=== PATIENT | female | born 1995 | race Caucasian/White ===

== ENCOUNTER 2020-10-06 17:25 | Outpatient (REF) | payer OTHER, SELFPAY | END 2020-10-06 17:26 | disposition home or self-care (01) | LOC: HO.LAB 17:25 | PROVIDERS: Visit Provider Internal Medicine | DX: Z20.828 Contact with and (suspected) exposure to other viral communicable diseases (principal) | CPT/HCPCS: C9803; U0003 ==

== ENCOUNTER 2020-11-04 16:26 | Outpatient (REF) | payer OTHER, SELFPAY | END 2020-11-04 16:27 | disposition home or self-care (01) | LOC: HO.LAB 16:26 | PROVIDERS: Visit Provider Internal Medicine | DX: Z20.828 Contact with and (suspected) exposure to other viral communicable diseases (principal) | CPT/HCPCS: 36415; C9803; U0003 ==

== ENCOUNTER 2021-01-26 11:24 | Outpatient (REF) | payer OTHER, SELFPAY ==
--- NOTE | ~2021-01-26 | XR_ITS ---
EXAMINATION: XR LUMBOSACRAL SPINE CLINICAL INFORMATION: Low back pain. COMPARISON: None TECHNIQUE: Three views of the lumbosacral spine. FINDINGS: There is mild straightening of lumbar lordosis. The vertebral heights, alignment and disc heights are normal. No visible acute fracture, dislocation or subluxation seen. No lytic or sclerotic process seen. The paravertebral soft tissues are normal. XR/XR lumbar spine 2-3V IMPRESSION: Unremarkable lumbar spine exam.
== END 2021-01-26 11:25 | disposition home or self-care (01) ==
LOC: HO.XRAY 11:24
PROVIDERS: PCP Physician Assistant; Visit Provider Internal Medicine
DX: M54.9 Dorsalgia, unspecified (principal)
CPT/HCPCS: 72100; 81025

== ENCOUNTER 2021-01-26 15:38 | Outpatient (REF) | payer OTHER, SELFPAY ==
[2021-01-26 17:17] LABS: Glucose Random 86 mg/dL (60-115)
[2021-01-26 17:44] LABS: Thyroid Stimulating Hormone 1.16 uIU/mL (0.32-4.0)
[2021-01-26 18:34] LABS: Glucose Urine UA NEG (NEG); Leukocyte Esterase Urine NEG (NEG); Nitrite Urine NEG (NEG); Specific Gravity - Urine >= 1.030 (1.005-1.025); Urine Blood TRACE (NEG); Urine Ketones NEG (NEG); Urine Protein NEG (NEG-TRACE)
[2021-01-26 18:37] LABS: Appearance Urine CLEAR; Color Urine YELLOW
[2021-01-26 18:41] LABS: Bacteria Urine 1+ /LPF; RBC Urine 0-2 /HPF (0); Squamous Epithelial Cell Urine 2+ /LPF; WBC Urine 0 /HPF (0-4)
[2021-01-27 08:55] LABS: CT PCR NOT DETECTED (Not Detect.); NG PCR NOT DETECTED (Not Detect.)
[2021-01-28 08:56] LABS: ~HepC Num1 0.08 S/CO (0.00-0.79); ~Hepatitis C Antibody Nonreactive (Nonreactive)
[2021-01-28 09:21] LABS: HBsAGNum1 0.21 S/CO (0.00-0.99); HIV AB/AG Nonreactive (Nonreactive); HIV Num 1 0.05 S/CO (0.00-0.99); Hepatitis B Surface Antigen Negative (Negative)
== END 2021-01-26 15:39 | disposition home or self-care (01) ==
LOC: HO.LAB 15:38
PROVIDERS: Internal Medicine; Visit Provider Advanced Practice Midwife
DX: Z12.4 Encounter for screening for malignant neoplasm of cervix (principal); E66.01 Morbid (severe) obesity due to excess calories; N91.2 Amenorrhea, unspecified; Z20.2 Contact with and (suspected) exposure to infections with a predominantly sexual mode of transmission
CPT/HCPCS: 36415; 81001; 82947; 84443; 86803; 87340; 87389; 87491; 87591; 88142

== ENCOUNTER 2021-01-27 14:08 | Outpatient (REF) | payer OTHER, SELFPAY | END 2021-01-27 14:09 | disposition home or self-care (01) | LOC: HO.LAB 14:08 | PROVIDERS: Visit Provider Advanced Practice Midwife | DX: Z13.89 Encounter for screening for other disorder (principal) ==

== ENCOUNTER → 2021-01-30 08:53 | Outpatient (BNVA) | payer OTHER, SELFPAY | PROVIDERS: Visit Provider Advanced Practice Midwife ==

== ENCOUNTER 2021-04-14 13:14 | Outpatient (REF) | payer OTHER, SELFPAY ==
[2021-04-14 14:48] LABS: Influenza A PCR NEGATIVE (Negative); Influenza B PCR NEGATIVE (Negative); Resp Syncy Virus RNA Qual PCR NEGATIVE (Negative); SARS COV2 PCR INHOUSE NEGATIVE (Negative)
== END 2021-04-14 13:15 | disposition home or self-care (01) ==
LOC: HO.LAB 13:14
PROVIDERS: Visit Provider Nurse Practitioner Family
DX: Z20.822 Contact with and (suspected) exposure to COVID-19 (principal); J01.90 Acute sinusitis, unspecified
CPT/HCPCS: 0241U; 36415

== ENCOUNTER 2021-06-19 10:19 | Outpatient (REF) | payer OTHER, SELFPAY ==
[2021-06-21 15:12] LABS: TS Negative Control Passed; TS Panel A 0; TS Panel B 0; TS Positive Control Passed; TSpotTB Negative (Negative)
== END 2021-06-19 10:20 | disposition home or self-care (01) ==
LOC: HO.HMGCLDS 10:19
PROVIDERS: PCP Physician Assistant; Visit Provider Physician Assistant
DX: Z11.1 Encounter for screening for respiratory tuberculosis (principal)
CPT/HCPCS: 36415; 86481

== ENCOUNTER → 2021-07-10 07:15 | Outpatient (BNVA) | payer OTHER, SELFPAY | PROVIDERS: PCP Physician Assistant; Visit Provider Surgery ==

== ENCOUNTER → 2021-07-27 08:14 | Outpatient (BNVA) | payer OTHER, SELFPAY | PROVIDERS: PCP Physician Assistant; Visit Provider Dietitian, Registered ==

== ENCOUNTER 2021-07-28 08:50 | Outpatient (REF) | payer OTHER, SELFPAY ==
--- NOTE | ~2021-07-28 | XR_ITS ---
EXAMINATION: XR CHEST CLINICAL INFORMATION: Obesity COMPARISON: None TECHNIQUE: 2 views of the chest were obtained. FINDINGS: No significant abnormality is noted involving the heart, lungs, mediastinum, bony thorax or soft tissues. XR/XR chest 2V IMPRESSION: Unremarkable examination.
--- NOTE | 2021-07-28 09:27 | ECG_ITS ---
Test Reason : morbid obesity Blood Pressure : / mmHG Vent. Rate : 062 BPM Atrial Rate : 062 BPM P-R Int : 164 ms QRS Dur : 082 ms QT Int : 414 ms P-R-T Axes : 046 055 050 degrees QTc Int : 420 ms Normal sinus rhythm with sinus arrhythmia Low voltage QRS Borderline ECG No previous ECGs available Referred By: Casey Bynum Electronically Signed By:ARCHIE SIMEON
[2021-07-28 10:00] LABS: MANUAL DIFF FLAG NO
[2021-07-28 10:11] LABS: Basophils Percent Auto 0.5 % (0-2); Eosinophils Absolute Auto 0.2 X10*3/uL (0.0-0.4); Eosinophils Percent Auto 3.9 % (0-4); Hemoglobin 13.4 g/dl (12.0-16.0); Imm Gran Abs Auto 0.02 X10*3/uL (0.00-0.03); Imm Gran Pct Auto 0.3 % (0.0-0.4); Lymphocytes Absolute Auto 2.2 X10*3/uL (1.2-4.9); Lymphocytes Percent Auto 35.8 % (20-40); Mean Corpuscular HGB Conc 35.3 g/dl (31.0-35.0); Mean Corpuscular Volume 90.7 fL (80-98); Mean Platelet Volume 9.9 fL (9.4-12.3); Monocytes Absolute Auto 0.4 X10*3/uL (0.1-1.2); Monocytes Percent Auto 6.7 % (2-11); Neutrophils Absolute Auto 3.2 X10*3/uL (2.0-8.3); Neutrophils Percent Auto 52.8 % (45-73); Platelet Count 330 X10*3/uL (160-400); Red Blood Count 4.19 X10*6/uL (4.20-5.50); Red Cell Distribution Width 11.6 % (11.0-16.0); White Blood Count 6.1 X10*3/uL (4.8-10.8)
[2021-07-28 10:36] LABS: Estimated Average Glucose 105 mg/dL; Hemoglobin A1c % 5.3 %
[2021-07-28 10:38] LABS: Alanine Aminotransferase 46 U/L (0-31); Albumin Level 4.5 g/dL (3.5-5.0); Alkaline Phosphatase 39 U/L (39-117); Anion Gap 14 (12-20); Aspartate Amino Transferase 27 U/L (5-31); Bilirubin Total 0.7 mg/dL (0.0-1.0); Blood Urea Nitrogen 10 mg/dL (9-16); C Reactive Protein 0.26 mg/dL (< or = 0.50); Calcium 9.5 mg/dL (8.4-10.2); Carbon Dioxide 27 mmol/L (22-29); Chloride 103 mmol/L (96-108); Cholesterol 151 mg/dL; Estimated Glomerular Filt Rate > 60; Glucose Random 98 mg/dL (60-115); HDL Cholesterol 31 mg/dL; Iron 90 mcg/dL (30-160); LDL Cholesterol Calculated 82 mg/dl; Percent Iron Saturation 28 % (15-50); Potassium 4.1 mmol/L (3.3-5.1); Sodium 140 mmol/L (135-145); Total Iron Binding Capacity 325 mcg/dL (228-428); Total Protein 7.2 g/dL (6.5-8.0); Triglycerides 191 mg/dL; Unsaturated Iron Binding 235 ug/dL
[2021-07-28 11:01] LABS: Appearance Urine HAZY; Color Urine YELLOW; Glucose Urine UA NEG (NEG); Leukocyte Esterase Urine TRACE (NEG); Nitrite Urine NEG (NEG); Specific Gravity - Urine >= 1.030 (1.005-1.025); Urine Blood NEG (NEG); Urine Ketones NEG (NEG); Urine Protein NEG (NEG-TRACE)
[2021-07-28 11:06] LABS: TSH reflex Free T4 1.13 uIU/mL (0.32-4.0); Vitamin D 25-OH Total 29.2 ng/mL (>30)
[2021-07-28 11:08] LABS: Folate 14.5 ng/mL (> or = 4.0); Vitamin B12 641 pg/mL (200-900)
[2021-07-28 11:14] LABS: Ferritin 123 ng/mL (10-122)
[2021-07-28 11:24] LABS: Bacteria Urine 1+ /LPF; RBC Urine 0 /HPF (0); Squamous Epithelial Cell Urine 2+ /LPF; WBC Urine 0-2 /HPF (0-4)
[2021-07-28 11:25] LABS: Mucus Urine 2+ /LPF
[2021-07-29 13:19] LABS: H Pylori Breath Test Positive (Negative)
[2021-07-29 21:22] LABS: Rubella IgG Antibody 3.68 Index
[2021-07-30 09:08] LABS: Calcium (PTHI) 9.5 mg/dL (8.6-10.2); Insulin Level Total 18.1 uIU/mL; PTHI 50 pg/mL (14-64)
[2021-08-01 13:40] LABS: Zinc 83 mcg/dL (60-130)
[2021-08-02 11:23] LABS: Vitamin B1 11 nmol/L (8-30)
[2021-08-02 13:35] LABS: Vitamin A 47 mcg/dL (38-98)
== END 2021-07-28 08:51 | disposition home or self-care (01) ==
LOC: HO.XRAY 08:50
PROVIDERS: Internal Medicine; Absent Provider Surgery; PCP Physician Assistant; Visit Provider Dietitian, Registered
DX: E66.01 Morbid (severe) obesity due to excess calories (principal); Z68.41 Body mass index [BMI] 40.0-44.9, adult; E28.2 Polycystic ovarian syndrome; Z71.3 Dietary counseling and surveillance; Z01.84 Encounter for antibody response examination
CPT/HCPCS: 36415; 71046; 80053; 80061; 81001; 81003; 82306; 82607; 82728; 82746; 83013; 83036; 83525; 83540; 83970; 84425; 84443; 84590; 84630; 85025; 86140; 86735; 86762; 86765; 86787; 93005; 97802; 99211

== ENCOUNTER → 2021-08-03 08:00 | Outpatient (BNVA) | payer OTHER, SELFPAY | PROVIDERS: PCP Physician Assistant; Visit Provider Surgery ==

== ENCOUNTER 2021-08-06 10:19 | Outpatient (REF) | payer OTHER, SELFPAY ==
--- NOTE | ~2021-08-06 | US_ITS ---
EXAMINATION: US COMPLETE ABDOMEN WITH LIVER ELASTOGRAPHY CLINICAL INFORMATION: Obesity COMPARISON: None. TECHNIQUE: Real-time imaging of the abdominal viscera. Noninvasive ultrasound liver fibrosis assessment is performed using Casper ElastPQ point quantification shear wave elastography (pSWE) with a C5-2 MHz transducer. Multiple elastography samples are obtained. FINDINGS: PANCREAS: Not well visualized due to bowel gas ABDOMINAL AORTA: The proximal, middle, and distal aortic segments are normal in caliber. INFERIOR VENA CAVA: Visualized portions are normal. LIVER: Liver echotexture is increased. Liver contour is normal. The liver is slightly enlarged. No focal lesion or intrahepatic biliary duct dilatation. The right lobe measures 18 cm in length. The left lobe measures 12 cm in length. Portal flow is normal/hepatopedal Shear wave liver elastography median stiffness is 1.5 m/s (reference: normal median stiffness is 1.3 m/s or less). IQR/median stiffness to assess sampling precision is 0.11 (reference: good quality data set is IQR/median stiffness of 0.15 or less). GALLBLADDER: Normal. The gallbladder is physiologically distended without evidence of stones, sludge, polyps, wall thickening or pericholecystic fluid. COMMON BILE DUCT: Normal in caliber measuring 0.3 cm in diameter. RIGHT KIDNEY: Normal. No hydronephrosis. No renal calculi or focal parenchymal lesions. The kidney measures 12 cm in maximum dimension. LEFT KIDNEY: Normal. No hydronephrosis. No renal calculi or focal parenchymal lesions. The kidney measures 11 cm in maximum dimension. SPLEEN: Normal. The spleen measures 9 cm in maximum dimension. FREE FLUID: None. US/US abdomen comp w elastography IMPRESSION: 1. Impression: Slightly enlarged echogenic liver probably representing fatty infiltration. Limited visualization of the pancreas. 2. Liver elastography: Adequate liver sampling. In the absence of other known clinical signs, rules out compensated advanced chronic liver disease. REFERENCE: Society of Radiologists in Ultrasound Liver Stiffness Thresholds (2020): LIVER STIFFNESS THRESHOLDS: *Liver Stiffness equal or less than 1.3 m/s: High probability of being normal. *Liver Stiffness less than 1.7 m/s: In the absence of other known clinical signs, rules out compensated advanced chronic liver disease. *Liver Stiffness 1.7-2.1 m/s: Suggestive of compensated advanced chronic liver disease but need further test for confirmation. *Liver Stiffness over 2.1 m/s: Rules in compensated advanced chronic liver disease. *Liver Stiffness over 2.4 m/s: Suggestive of clinically significant portal hypertension. QUALITY OF DATA SET: *IQR/Median value equal or less than 0.15 implies a quality data set. *IQR/Median value over 0.15 implies a poor quality data set. SIGNIFICANT CHANGE FROM PRIOR EXAM: Significant change if liver stiffness measurement is 10% or greater from prior exam. OTHER CONSIDERATIONS: The stage of liver fibrosis may be overestimated in the setting of acute hepatitis, liver inflammation, elevated liver function tests, hepatic vascular congestion, obstructive cholestasis, non-fasting state, and infiltrative diseases such as amyloidosis and lymphoma. In some patients with NAFLD, the liver stiffness thresholds for compensated advanced chronic liver disease may be lower. In causes other than viral hepatitis and NAFLD, liver stiffness thresholds are not well established.
--- NOTE | ~2021-08-06 | FL_ITS ---
EXAMINATION: XR GI SERIES CLINICAL INFORMATION: Obesity COMPARISON: None TECHNIQUE: Upper GI was performed using thin and thick barium and effervescent granules. FINDINGS: Esophageal motility is normal. No esophageal hernia is seen. There is mild gastroesophageal reflux. Stomach and duodenum are normal-appearing. No fold thickening, mass, ulcer or stricture is seen. FLUOROSCOPY TIME: 0.9 minutes DOSE AREA PRODUCT: 10.6 aceves per centimeter squared. 18 saved fluoroscopic images. FL/FL upper GI series IMPRESSION: Mild gastroesophageal reflux otherwise unremarkable exam.
== END 2021-08-06 10:20 | disposition home or self-care (01) ==
LOC: HO.US 10:19
PROVIDERS: PCP Physician Assistant; Visit Provider Surgery
DX: Z01.818 Encounter for other preprocedural examination (principal); E66.01 Morbid (severe) obesity due to excess calories; E28.2 Polycystic ovarian syndrome; K21.9 Gastro-esophageal reflux disease without esophagitis
CPT/HCPCS: 74240; 76705; 76981

== ENCOUNTER → 2021-08-24 08:13 | Outpatient (BNVA) | payer OTHER, SELFPAY | PROVIDERS: PCP Physician Assistant; Referring Provider Surgery; Visit Provider Dietitian, Registered | DX: E66.01 Morbid (severe) obesity due to excess calories (principal); Z68.41 Body mass index [BMI] 40.0-44.9, adult; J30.81 Allergic rhinitis due to animal (cat) (dog) hair and dander; J30.2 Other seasonal allergic rhinitis; Z71.3 Dietary counseling and surveillance | CPT/HCPCS: 97803 ==

== ENCOUNTER → 2021-08-28 08:17 | Outpatient (BNVA) | payer OTHER, SELFPAY | PROVIDERS: PCP Physician Assistant; Visit Provider Surgery ==

== ENCOUNTER 2021-09-23 07:58 | Outpatient (REF) | payer OTHER, SELFPAY ==
[2021-09-25 08:50] LABS: H Pylori Breath Test Positive (Negative)
== END 2021-09-23 07:59 | disposition home or self-care (01) ==
LOC: HO.LNP 07:58
PROVIDERS: Physician Assistant Surgical; PCP Physician Assistant; Visit Provider Surgery
DX: Z01.818 Encounter for other preprocedural examination (principal); E66.01 Morbid (severe) obesity due to excess calories; Z68.41 Body mass index [BMI] 40.0-44.9, adult; Z71.3 Dietary counseling and surveillance
CPT/HCPCS: 83013; 97803

== ENCOUNTER → 2021-11-06 07:33 | Outpatient (BNVA) | payer OTHER, SELFPAY | PROVIDERS: PCP Physician Assistant; Visit Provider Surgery ==

== ENCOUNTER 2021-11-10 15:00 | Outpatient (REF) | payer OTHER, SELFPAY ==
[2021-11-11 09:10] LABS: BV Int Neg Control Negative (Negative); BV Int Pos Control Positive (Positive)
[2021-11-11 10:32] LABS: CT PCR NOT DETECTED (Not Detect.); NG PCR NOT DETECTED (Not Detect.)
== END 2021-11-10 15:01 | disposition home or self-care (01) ==
LOC: HO.LAB 15:00
PROVIDERS: PCP Physician Assistant; Visit Provider Obstetrics & Gynecology
DX: B37.3 Candidiasis of vulva and vagina (principal)
CPT/HCPCS: 87480; 87491; 87510; 87591; 87660; 99212

== ENCOUNTER → 2022-12-29 08:14 | Outpatient (BNVA) | payer OTHER, SELFPAY | PROVIDERS: PCP Physician Assistant; Referring Provider Physician Assistant; Visit Provider Physician Assistant Surgical | DX: Z13.89 Encounter for screening for other disorder (principal) ==

== ENCOUNTER 2022-12-30 08:23 | Outpatient (REF) | payer OTHER, SELFPAY ==
--- NOTE | ~2022-12-30 | XR_ITS ---
EXAMINATION: XR CHEST CLINICAL INFORMATION: Morbid obesity COMPARISON: July 20, 2021 TECHNIQUE: 2 views of the chest were obtained. FINDINGS: No significant abnormality is noted involving the heart, lungs, mediastinum, bony thorax or soft tissues. XR/XR chest 2V IMPRESSION: No acute disease.
--- NOTE | 2022-12-30 10:08 | ECG_ITS ---
Test Reason : obesity Blood Pressure : / mmHG Vent. Rate : 059 BPM Atrial Rate : 059 BPM P-R Int : 152 ms QRS Dur : 082 ms QT Int : 402 ms P-R-T Axes : 040 056 055 degrees QTc Int : 397 ms Sinus bradycardia with sinus arrhythmia Otherwise normal ECG When compared with ECG of 28-JUL-2021 09:44, No significant change was found Referred By: Jeremy Schwartz Electronically Signed By:NEEL HOGAN MD
[2022-12-30 10:17] LABS: MANUAL DIFF FLAG NO
[2022-12-30 10:48] LABS: Basophils Percent Auto 0.7 % (0-2); Eosinophils Absolute Auto 0.2 X10*3/uL (0.0-0.4); Eosinophils Percent Auto 2.8 % (0-4); Hematocrit 41.9 % (37.0-47.0); Hemoglobin 14.3 g/dl (12.0-16.0); Imm Gran Abs Auto 0.01 X10*3/uL (0.00-0.03); Imm Gran Pct Auto 0.2 % (0.0-0.4); Lymphocytes Absolute Auto 1.9 X10*3/uL (1.2-4.9); Lymphocytes Percent Auto 32.8 % (20-40); Mean Corpuscular HGB Conc 34.1 g/dl (31.0-35.0); Mean Corpuscular Hemoglobin 30.2 pg (27.0-33.0); Mean Corpuscular Volume 88.4 fL (80.0-98.0); Monocytes Absolute Auto 0.5 X10*3/uL (0.1-1.2); Monocytes Percent Auto 8.5 % (2-11); Neutrophils Absolute Auto 3.1 x10*3/uL (2.0-8.3); Platelet Count 369 X10*3/uL (160-400); Red Blood Count 4.74 X10*6/uL (4.20-5.50); Red Cell Distribution Width 11.6 % (11.0-16.0); White Blood Count 5.7 X10*3/uL (4.8-10.8)
[2022-12-30 11:24] LABS: Alanine Aminotransferase 58 U/L (0-31); Albumin Level 4.7 g/dL (3.5-5.0); Alkaline Phosphatase 40 U/L (39-117); Anion Gap 13 (12-20); Aspartate Amino Transferase 33 U/L (5-31); Bilirubin Total 0.7 mg/dL (0.0-1.0); Blood Urea Nitrogen 11 mg/dL (9-16); C Reactive Protein 0.28 mg/dL (< or = 0.50); Calcium 9.6 mg/dL (8.4-10.2); Carbon Dioxide 28 mmol/L (22-29); Chloride 102 mmol/L (96-108); Cholesterol 182 mg/dL; Estimated Glomerular Filt Rate > 60; Glucose Random 96 mg/dL (60-115); HDL Cholesterol 36 mg/dL; Iron 75 mcg/dL (30-160); LDL Cholesterol Calculated 111 mg/dl; Percent Iron Saturation 23 % (15-50); Potassium 4.5 mmol/L (3.3-5.1); Sodium 138 mmol/L (135-145); Total Iron Binding Capacity 328 mcg/dL (228-428); Total Protein 7.5 g/dL (6.5-8.0); Triglycerides 178 mg/dL; Unsaturated Iron Binding 253 ug/dL
[2022-12-30 11:39] LABS: Estimated Average Glucose 108 mg/dL; Hemoglobin A1c % 5.4 %
[2022-12-30 11:48] LABS: Ferritin 83 ng/mL (10-122); Folate 17.6 ng/mL (> or = 4.0); TSH reflex Free T4 0.92 uIU/mL (0.32-4.0); Vitamin B12 961 pg/mL (200-900); Vitamin D 25-OH Total 31.5 ng/mL (>30)
[2022-12-30 11:55] LABS: Insulin 24 uU/mL (2-29)
[2023-01-03 02:44] LABS: Zinc 86 mcg/dL (60-130)
[2023-01-03 15:54] LABS: Calcium (PTHI) 9.9 mg/dL (8.6-10.2); PTHI 45 pg/mL (16-77)
[2023-01-04 05:14] LABS: Vitamin A 71 mcg/dL (38-98)
[2023-01-05 16:54] LABS: Vitamin B1 15 nmol/L (8-30)
== END 2022-12-30 08:24 | disposition home or self-care (01) ==
LOC: HO.XRAY 08:23
PROVIDERS: PCP Physician Assistant; Visit Provider Physician Assistant Surgical
DX: E66.01 Morbid (severe) obesity due to excess calories (principal); A04.8 Other specified bacterial intestinal infections; N91.2 Amenorrhea, unspecified; Z68.41 Body mass index [BMI] 40.0-44.9, adult; Z71.3 Dietary counseling and surveillance
CPT/HCPCS: 36415; 71046; 80053; 80061; 82306; 82607; 82728; 82746; 83036; 83525; 83540; 83970; 84425; 84443; 84590; 84630; 85025; 86140; 93005; 99212

== ENCOUNTER → 2023-01-19 08:30 | Outpatient (BNVA) | payer OTHER, SELFPAY | PROVIDERS: PCP Physician Assistant; Visit Provider Physician Assistant Surgical ==

== ENCOUNTER 2023-01-24 08:20 | Outpatient (REF) | payer OTHER, SELFPAY ==
[2023-01-26 15:19] LABS: H Pylori Breath Test Positive (Negative)
== END 2023-01-24 08:21 | disposition home or self-care (01) ==
LOC: HO.LNP 08:20
PROVIDERS: PCP Physician Assistant; Visit Provider Physician Assistant Surgical
DX: E66.01 Morbid (severe) obesity due to excess calories (principal); A04.8 Other specified bacterial intestinal infections
CPT/HCPCS: 83013; 99211

== ENCOUNTER → 2023-01-25 09:00 | Outpatient (BNVA) | payer OTHER, SELFPAY | PROVIDERS: PCP Physician Assistant; Visit Provider Counselor Mental Health ==

== ENCOUNTER → 2023-02-03 09:22 | Outpatient (BNVA) | payer OTHER, SELFPAY | PROVIDERS: PCP Physician Assistant; Visit Provider Dietitian, Registered | DX: E66.9 Obesity, unspecified (principal) | CPT/HCPCS: 97802 ==

== ENCOUNTER → 2023-02-09 09:37 | Outpatient (BNVA) | payer OTHER, SELFPAY | PROVIDERS: PCP Physician Assistant; Visit Provider Physician Assistant Surgical | DX: E66.9 Obesity, unspecified (principal); Z68.39 Body mass index [BMI] 39.0-39.9, adult | CPT/HCPCS: 99212 ==

== ENCOUNTER 2023-02-10 08:26 | Outpatient (REF) | payer OTHER, SELFPAY ==
--- NOTE | ~2023-02-10 | US_ITS ---
EXAMINATION: US COMPLETE ABDOMEN WITH LIVER ELASTOGRAPHY CLINICAL INFORMATION: Obesity COMPARISON: None available. TECHNIQUE: Real-time imaging of the abdominal viscera. Noninvasive ultrasound liver fibrosis assessment is performed using Casper ElastPQ point quantification shear wave elastography (2D-SWE) with a C5-2 MHz transducer. Multiple elastography samples are obtained. FINDINGS: PANCREAS: Normal. ABDOMINAL AORTA: The proximal, middle, and distal aortic segments are normal in caliber. INFERIOR VENA CAVA: Visualized portions are normal. LIVER: Liver echotexture is increased. The liver is normal in contour. Liver is slightly enlarged.. No focal lesion or intrahepatic biliary duct dilatation. The right lobe measures 19 cm in length. The left lobe measures 13 cm in length. Portal flow is normal/hepatopedal Shear wave liver elastography median stiffness is 1.3 m/s (reference: normal median stiffness is 1.3 m/s or less). IQR/median stiffness to assess sampling precision is 0.08 (reference: good quality data set is IQR/median stiffness of 0.15 or less). GALLBLADDER: Normal. The gallbladder is physiologically distended without evidence of stones, sludge, polyps, wall thickening or pericholecystic fluid. COMMON BILE DUCT: Normal in caliber measuring 0.4 cm in diameter. RIGHT KIDNEY: Normal. No hydronephrosis. No renal calculi or focal parenchymal lesions. The kidney measures 10.5 cm in maximum dimension. LEFT KIDNEY: Mid pole stone measuring 5 mm. No hydronephrosis. No focal parenchymal lesions. The kidney measures 10.4 cm in maximum dimension. SPLEEN: Normal. The spleen measures 10.5 cm in maximum dimension. FREE FLUID: None. US/US abdomen comp w elastography IMPRESSION: 1. Impression: Echogenic slightly enlarged liver probably representing fatty infiltration. Left renal stone. 2. Liver elastography: Adequate liver sampling. Normal liver stiffness. REFERENCE: Society of Radiologists in Ultrasound Liver Stiffness Thresholds (2020): LIVER STIFFNESS THRESHOLDS: *Liver Stiffness equal or less than 1.3 m/s: High probability of being normal. *Liver Stiffness less than 1.7 m/s: In the absence of other known clinical signs, rules out compensated advanced chronic liver disease. *Liver Stiffness 1.7-2.1 m/s: Suggestive of compensated advanced chronic liver disease but need further test for confirmation. *Liver Stiffness over 2.1 m/s: Rules in compensated advanced chronic liver disease. *Liver Stiffness over 2.4 m/s: Suggestive of clinically significant portal hypertension. QUALITY OF DATA SET: *IQR/Median value equal or less than 0.15 implies a quality data set. *IQR/Median value over 0.15 implies a poor quality data set. SIGNIFICANT CHANGE FROM PRIOR EXAM: Significant change if liver stiffness measurement is 10% or greater from prior exam. OTHER CONSIDERATIONS: The stage of liver fibrosis may be overestimated in the setting of acute hepatitis, liver inflammation, elevated liver function tests, hepatic vascular congestion, obstructive cholestasis, non-fasting state, and infiltrative diseases such as amyloidosis and lymphoma. In some patients with NAFLD, the liver stiffness thresholds for compensated advanced chronic liver disease may be lower. In causes other than viral hepatitis and NAFLD, liver stiffness thresholds are not well established.
--- NOTE | ~2023-02-10 | FL_ITS ---
EXAMINATION: XR FLUOROSCOPY UPPER GI WITH AIR CLINICAL INFORMATION: Morbid/severe obesity due to excess calories COMPARISON: None available. TECHNIQUE: Routine upper GI air-contrast study was performed in upright and lying position. FINDINGS: Following oral administration of thick barium and effervescent granules in upright view there is normal probation of bolus from the oral cavity through the pharynx, esophagus into stomach without any evidence of obstruction, narrowing or stricture. On placing patient supine and prone lying the course, caliber and peristalsis of stomach and the duodenal bulb is normal. The mucosal pattern is normal. There is mild gastroesophageal reflux without hiatal hernia. FLUOROSCOPY TIME: 1.2 minutes DOSE AREA PRODUCT: 42.655 uGy-m2 (microgray-meter squared) FL/FL upper GI w air IMPRESSION: Mild gastroesophageal reflux otherwise unremarkable upper GI air-contrast study.
== END 2023-02-10 08:27 | disposition home or self-care (01) ==
LOC: HO.US 08:26
PROVIDERS: PCP Physician Assistant; Visit Provider Physician Assistant Surgical
DX: Z01.818 Encounter for other preprocedural examination (principal); E66.01 Morbid (severe) obesity due to excess calories; A04.8 Other specified bacterial intestinal infections; K21.9 Gastro-esophageal reflux disease without esophagitis
CPT/HCPCS: 74246; 76705; 76981

== ENCOUNTER → 2023-02-22 09:10 | Outpatient (BNVA) | payer OTHER, SELFPAY | PROVIDERS: PCP Physician Assistant; Visit Provider Physician Assistant Surgical | DX: Z11.0 Encounter for screening for intestinal infectious diseases (principal); E66.9 Obesity, unspecified; E28.2 Polycystic ovarian syndrome; A04.8 Other specified bacterial intestinal infections; Z68.39 Body mass index [BMI] 39.0-39.9, adult | CPT/HCPCS: 99211; 99212 ==

== ENCOUNTER 2023-02-22 18:10 | Outpatient (REF) | payer OTHER, SELFPAY ==
[2023-02-23 13:48] LABS: H Pylori Breath Test Negative (Negative)
== END 2023-02-22 18:11 | disposition home or self-care (01) ==
LOC: HO.LNP 18:10
PROVIDERS: Visit Provider Physician Assistant Surgical
DX: Z01.818 Encounter for other preprocedural examination (principal)
CPT/HCPCS: 83013

== ENCOUNTER → 2023-02-24 09:30 | Outpatient (BNVA) | payer OTHER, SELFPAY | PROVIDERS: PCP Physician Assistant; Visit Provider Counselor Mental Health ==

== ENCOUNTER → 2023-03-02 12:46 | Outpatient (BNVA) | payer OTHER, SELFPAY | PROVIDERS: PCP Physician Assistant; Visit Provider Physician Assistant ==

== ENCOUNTER 2023-03-03 08:32 | Outpatient (REF) | payer OTHER, SELFPAY ==
[2023-03-03 08:54] LABS: MANUAL DIFF FLAG NO
[2023-03-03 09:05] LABS: Basophils Percent Auto 0.5 % (0-2); Eosinophils Absolute Auto 0.2 X10*3/uL (0.0-0.4); Eosinophils Percent Auto 2.4 % (0-4); Hematocrit 41.5 % (37.0-47.0); Hemoglobin 14.4 g/dl (12.0-16.0); Imm Gran Abs Auto 0.01 X10*3/uL (0.00-0.03); Imm Gran Pct Auto 0.2 % (0.0-0.4); Lymphocytes Absolute Auto 1.6 X10*3/uL (1.2-4.9); Lymphocytes Percent Auto 25.4 % (20-40); Mean Corpuscular HGB Conc 34.7 g/dl (31.0-35.0); Mean Corpuscular Hemoglobin 30.9 pg (27.0-33.0); Mean Corpuscular Volume 89.1 fL (80.0-98.0); Mean Platelet Volume 10.2 fL (9.4-12.3); Monocytes Absolute Auto 0.6 X10*3/uL (0.1-1.2); Monocytes Percent Auto 8.8 % (2-11); Neutrophils Absolute Auto 3.9 x10*3/uL (2.0-8.3); Neutrophils Percent Auto 62.7 % (45-73); Platelet Count 318 X10*3/uL (160-400); Red Blood Count 4.66 X10*6/uL (4.20-5.50); Red Cell Distribution Width 11.7 % (11.0-16.0); White Blood Count 6.2 X10*3/uL (4.8-10.8)
[2023-03-03 09:11] LABS: INTERNATIONAL NORM RATIO 1.1 (0.9-1.1); Prothrombin Time 12.9 SEC (10.0-13.1)
[2023-03-03 09:14] LABS: Partial Thromboplastin Time 33.6 SEC (26.0-36.4)
[2023-03-03 09:15] LABS: Estimated Average Glucose 103 mg/dL; Hemoglobin A1c % 5.2 %
[2023-03-03 09:57] LABS: Alanine Aminotransferase 29 U/L (0-31); Albumin Level 4.6 g/dL (3.5-5.0); Alkaline Phosphatase 39 U/L (39-117); Anion Gap 14 (12-20); Aspartate Amino Transferase 22 U/L (5-31); Bilirubin Total 1.1 mg/dL (0.0-1.0); Blood Urea Nitrogen 14 mg/dL (9-16); Calcium 9.9 mg/dL (8.4-10.2); Carbon Dioxide 27 mmol/L (22-29); Chloride 103 mmol/L (96-108); Cholesterol 161 mg/dL; Estimated Glomerular Filt Rate > 60; Glucose Random 82 mg/dL (60-115); HDL Cholesterol 33 mg/dL; Iron 107 mcg/dL (30-160); LDL Cholesterol Calculated 96 mg/dl; Percent Iron Saturation 35 % (15-50); Potassium 4.1 mmol/L (3.3-5.1); Sodium 140 mmol/L (135-145); Total Iron Binding Capacity 310 mcg/dL (228-428); Total Protein 7.3 g/dL (6.5-8.0); Triglycerides 164 mg/dL; Unsaturated Iron Binding 203 ug/dL
[2023-03-03 10:18] LABS: Ferritin 82 ng/mL (10-122); TSH reflex Free T4 0.87 uIU/mL (0.32-4.0); Vitamin B12 934 pg/mL (200-900); Vitamin D 25-OH Total 42.5 ng/mL (>30)
[2023-03-07 15:24] LABS: Calcium (PTHI) 10.3 mg/dL (8.6-10.2); PTHI 35 pg/mL (16-77)
[2023-03-07 23:38] LABS: Zinc 89 mcg/dL (60-130)
[2023-03-09 06:33] LABS: Vitamin A 53 mcg/dL (38-98)
[2023-03-10 15:42] LABS: Vitamin B1 10 nmol/L (8-30)
== END 2023-03-03 08:33 | disposition home or self-care (01) ==
LOC: HO.LAB 08:32
PROVIDERS: PCP Physician Assistant; Visit Provider Surgery
DX: E66.01 Morbid (severe) obesity due to excess calories (principal); A04.8 Other specified bacterial intestinal infections; E28.2 Polycystic ovarian syndrome
CPT/HCPCS: 36415; 80053; 80061; 82306; 82607; 82728; 83036; 83540; 83970; 84425; 84443; 84590; 84630; 85025; 85610; 85730; 86140

== ENCOUNTER → 2023-03-07 13:14 | Outpatient (BNVA) | payer OTHER, SELFPAY | PROVIDERS: PCP Physician Assistant; Visit Provider Surgery ==

== ENCOUNTER → 2023-03-11 08:37 | Outpatient (BNVA) | payer OTHER, SELFPAY | PROVIDERS: PCP Physician Assistant; Visit Provider Surgery | DX: E66.9 Obesity, unspecified (principal); E28.2 Polycystic ovarian syndrome; A04.8 Other specified bacterial intestinal infections; F43.22 Adjustment disorder with anxiety; F32.0 Major depressive disorder, single episode, mild; K76.0 Fatty (change of) liver, not elsewhere classified; R16.0 Hepatomegaly, not elsewhere classified; Z68.36 Body mass index [BMI] 36.0-36.9, adult | CPT/HCPCS: 99212 ==

== ENCOUNTER 2023-03-16 08:16 | Inpatient (IN) | payer OTHER, SELFPAY ==
[2023-03-11 11:47] VITALS: BMI 36.8
--- NOTE | 2023-03-15 08:49 | P.CONAN_ITS ---
Documented by User: Clare Romero NP 03/15/23 08:51 HPI - Anesthesia Eval Consult details Narrative: 28yo F for Gastrectomy Sleeve, EGD, Poss Diaphragmatic Hernia, Poss Ventral Hernia, Poss Open PMFSH Active Problems Active Problems: All Active Problems (Updated 03/11/23 @ 08:47 by Mal Escalera MD) Hepatomegaly (Acute) NAFLD (nonalcoholic fatty liver disease) (Acute) Obesity (BMI 30-39.9) (Acute) Adjustment disorder with anxiety (Acute) Seasonal allergies (Acute) Candidal vulvovaginitis (Acute) H. pylori infection (Acute) Mild single current episode of major depressive disorder (Acute) PCOS (polycystic ovarian syndrome) (Acute) Morbid obesity (Acute) Need for MMR vaccine (Acute) Physical exam, pre-employment (Acute) Screening-pulmonary TB (Acute) Acute sinusitis (Acute) Allergic rhinitis (Acute) Potential exposure to STD (Acute) Cervical cancer screening (Acute) Anovulatory amenorrhea (Acute) Obesity, morbid, BMI 40.0-49.9 (Acute) Back pain (Acute) Past Medical History Medical History Morbid obesity PCOS (polycystic ovarian syndrome) Seasonal allergies Family History Family History Father Diabetes Mother Asthma Brother No problems noted. Brother No problems noted. Brother No problems noted. Sister No problems noted. Son No problems noted. 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 a significant other at home: Yes (8 + 15 yr old) Do you presently have visiting nurse or other home services: No Alcohol intake: current Alcohol intake frequency: holidays/special occasions only Alcohol type: wine Patient Tobacco Use Status: Never used Tobacco e-Cigarette/Vaping Use: Never Used Second Hand Smoke Exposure: No service: No Current occupational status: employed Current occupational exposures/hazards: No Cognitive needs: No Hearing needs: No Vision needs: Yes Meds Allergies Allergy/AdvReac Type Severity Reaction Status Date / Time cat dander Allergy Intermediate Runny Verified 03/11/23 11:46 Nose, sneezing dog dander Allergy Intermediate Runny Verified 03/11/23 11:46 Nose, sneezing seasonal allergies Allergy Unknown Unknown Uncoded 07/10/21 08:56 Seasonal IC Allergy Unknown Unknown Uncoded 07/10/21 08:56 Home Medications Medication Instructions Recorded Confirmed Last Taken Type albuterol sulfate 90 mcg/actuation 2 puff inhalation Q6H PRN 01/26/21 03/11/23 Unknown History aerosol inhaler (ProAir HFA) Shortness Of Breath Or Wheezing Exam Exam Date and Time: March 15, 2023 0849 Height,Weight and Vital Signs: Height 5 ft 3 in Weight 94.347 kg Pertinent Lab Results Pertinent Lab Results: Laboratory Tests 03/03/23 08:44 Blood Type A Positive Antibody Screen NEGATIVE Laboratory Tests 03/03/23 03/03/23 08:44 08:44 WBC 6.2 Hgb 14.4 Hct 41.5 Plt Count 318 Sodium 140 Potassium 4.1 Chloride 103 Carbon Dioxide 27 BUN 14 Creatinine 0.77 Narrative Narrative: EKG 12/2022 Vent. Rate : 059 BPM ? ? Atrial Rate : 059 BPM ?? P-R Int : 152 ms? QRS Dur : 082 ms ? ? QT Int : 402 ms ? ? ? P-R-T Axes : 040 056 055 degrees ?? QTc Int : 397 ms ? Sinus bradycardia with sinus arrhythmia Otherwise normal ECG When compared with ECG of 28-JUL-2021 09:44, No significant change was found Assessment and Plan Assessment Anesthesia Assessment: Chart Reviewed Documented by User: Elias Travis MD 03/16/23 11:14 [facility] Past Medical History Medical History Morbid obesity PCOS (polycystic ovarian syndrome) Seasonal allergies Patient : No Family History Family History Father Diabetes Mother Asthma Brother No problems noted. Brother No problems noted. Brother No problems noted. Sister No problems noted. Son No problems noted. Family/Other Substance use disorder Family history of problems with anesthesia: No Surgical History Surgical History History of bilateral carpal tunnel release History of section History of Problems with Anesthesia: No Social History Social History Housing: Apartment Are you a primary career services representative to a significant other at home: Yes (8 + 15 yr old) Do you presently have visiting nurse or other home services: No Alcohol intake: current Alcohol intake frequency: holidays/special occasions only Alcohol type: wine Patient Tobacco Use Status: Never used Tobacco e-Cigarette/Vaping Use: Never Used Second Hand Smoke Exposure: No service: No Current occupational status: employed Current occupational exposures/hazards: No Cognitive needs: No Hearing needs: No Vision needs: Yes Meds Allergies Allergy/AdvReac Type Severity Reaction Status Date / Time cat dander Allergy Intermediate Runny Verified 03/11/23 11:46 Nose, sneezing dog dander Allergy Intermediate Runny Verified 03/11/23 11:46 Nose, sneezing seasonal allergies Allergy Unknown Unknown Uncoded 07/10/21 08:56 Seasonal IC Allergy Unknown Unknown Uncoded 07/10/21 08:56 Home Medications Medication Instructions Recorded Confirmed Last Taken Type albuterol sulfate 90 mcg/actuation 2 puff inhalation Q6H PRN 01/26/21 03/11/23 Unknown History aerosol inhaler (ProAir HFA) Shortness Of Breath Or Wheezing Exam Airway Mallampati Class: I TM Dist: >3cm Neck ROM: Full Heart: ok Lungs: ok Assessment and Plan Final Anesthetic Review Family History of Problems with Anesthesia: No History of Problems with Anesthesia: No NPO: Yes ASA Class: III Final Preanesthetic Review: No Changes in Pt Med Stat, Meds/Allgs Chart Reviewed, Consent Obtained/Reviewed and Anes Risks/Benef Reviewed Patient Risk: Intermediate Procedure Risk: Intermediate Anesthetic Plan Anesthetic Plan: GA and Agree w/ Assess. and Plan Disposition: Standard PACU
[2023-03-15 13:18] LABS: COVID-19 Test Negative (Negative); IDNOW Serial# 08D9AD1C
[2023-03-16] VITALS (12 sets, daily range): BP systolic 107–147; BP diastolic 54–84; PULSE 67–78; RESP 13–18; TEMP 36.5–37; O2SAT 94–100; BMI 36.8
--- NOTE | 2023-03-16 06:58 | P.OP_ITS ---
Operative Note Operative Note Date of Service: 03/16/23 Narrative: Preop diagnosis: [Obesity, polycystic ovary syndrome, NAFLD, hepatomegaly] Postop diagnosis: [Same] Procedure: [Laparoscopic sleeve gastrectomy, gastropexy and intraoperative esophagogastroscopy] Surgeon: Mal Escalera MD Assist: [Fina Hernández PA-C] Anesthesia: [GET, Marcaine, 0.5% with epi] Estimated blood loss: [3cc] Specimen: [Portion of stomach with fundus] Intraoperative findings: [Grossly normal anterior stomach, liver and visualized spleen] Indications: [The patient is a 28-year-old woman with a struggle with obesity that is been refractory to medical management. She presented to the surgical weight loss program at a weight of 237 lb/BMI of 42.0. Her obesity related comorbidities include polycystic ovary syndrome and hepatomegaly secondary to NAFLD documented on ultrasound. Options including continued medical weight loss versus bariatric surgery, including discussion of gastric bypass versus sleeve gastrectomy were discussed at length and the patient's questions seemed to be satisfactorily answered. The plan for a laparoscopic sleeve gastrectomy, intraoperative upper endoscopy, possible hiatal hernia repair and possible ventral hernia repair was reviewed. I also reviewed the inherent risks of these procedures which include, but are not limited to: Bleeding that could require another operation or blood transfusion; the inherent risks of transfusion reaction infectious disease from blood transfusions; the risk of staple line leaks that could cause sepsis, multi-system organ failure and ; the risk of mesenteric or deep vein thrombosis of the lower extremities that could cause a fatal pulmonary embolism was reviewed; the risk of GERD that could require conversion to gastric bypass was discussed; the risk of recurrent hiatal hernia, especially in the setting of weight regain was reviewed. The risk of weight regain if maladaptive eating and sedentary behavior continue was discussed. The importance of proper diet and increased activity to augment surgical weight loss and the fact that no operation would result in weight loss of poor dietary decisions and sedentary behavior are resumed were discussed at length and apparently understood. The patient had the option of having a explosive expert present and declined this option. The patient seemed to understand all of her options, had her questions answered and wanted to proceed.] Procedure: [He the patient was identified in the preoperative holding area and again in operating room 6. 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 The patient was identified in the preoperative holding area by myself and again in the operating suite by myself and the OR team. Patient was placed supine on the operating table. Safety straps were utilized and a footboard utilized. The patient was induced in general endotracheal anesthesia administered with excellent effect. An appropriate time-out was performed. The patient's abdomen was then widely prepped and draped in the usual manner for surgery using chlorprep. Antibiotics per protocol were administered by Anesthesia. After infiltrating preemptive local in the skin and subcutaneous tissues in the left upper quadrant, a stab incision was made sharply in the left subcostal abdomen and the Veress needle inserted without incident. An appropriate drop test was performed then a pneumoperitoneum of 15 mmHg was obtained using carbon dioxide. Opening pressures were 7 mmHg. Next, a 5 mm 0 degree scope over a 5 mm Optiview trocar was used to access the abdomen via the epigastric incision in the midline. Once the abdomen was entered, the the trocar obturator was removed and the laparoscope was used to confirm there was no injury from the Veress needle nor trocar insertion injury to the bowel or mesentery, then the scope was switched to a 5 mm 45 degree laparoscope. Next, using preemptive local, additional 5 mm trocars were placed under direct laparoscopic vision on the patient's left abdomen, then right and the 5 mm midline trocar upsized to a 12 mm to accommodate the stapler. The patient was then positioned in reverse Trendelenburg and the liver retractor deployed through the right lateral 5 mm trocar and secured. A 40 [place] ViSiGi bougie was inserted by Anesthesia per os and advanced to the stomach to decompress. It was then withdrawn to the GE junction all under direct laparoscopic vision. Dissection was begun along the greater curvature using the 5 mm [place] LigaSure for hemostasis and continued to the left craig of the diaphragm. Dissection was then carried towards the pylorus to 3-4 cm from the pylorus and retro gastric adhesions lysed. The gastroesophageal fat pad was carefully mobilized taking care to avoid injury to the esophagus and stomach and dissection carried towards the short gastrics taking care to avoid injury to the spleen and splenic artery. The diaphragmatic hiatus was carefully examined for a hernia, and no apparent hernia was appreciated. Next, the 40 Fr ViSiGi bougie was advanced by anesthesia under direct vision and laparoscopic guidance and positioned in the antrum approximately 3 cm from the pylorus using laparoscopic graspers to serve as a guide for a stapled sleeve gastrectomy. Stapling was performed with eXelate Endo-CECILLE stapler with a purple 45 and then orange 45 and 60 loads. The bougie served as a guide to maintain the same sleeve caliber to avoid stricture & sleeve distortion. The 10 mm clip machine whitener was used to apply additional clips to the staple line. Care was taken to be sure that the sleeve laid flat and was without stricture. Once the sleeve was complete, the portion of stomach was placed in the lower abdomen to be sent for removal and permanent section. The staple line, gastrocolic omentum, spleen and short gastric areas were all inspected for hemostasis which was found to be good. After inspecting again for hemostasis, a gastropexy was performed using 2-0 Polysorb suture to secure the sleeve gastrectomy to the gastrocolic omentum. Next, I broke scrub perform an on-table upper endoscopy to assess the sleeve and the esophagus and stomach. The patient was returned to neutral position and the Olympus 160 gastroscope was advanced taking care to preserve the endotracheal tube. The esophagus was intubated without incident. Minimal air was insufflated and the scope advanced into the newly formed sleeve. The staple line was inspected for hemostasis and the morphology of the sleeve appeared straight with a uniform diameter. Intraoperatively, there was no evidence of staple line leak seen during laparoscopy as air was insufflated via endoscope. The scope was then used to aspirate the air from the sleeve withdrawn and removed. I then rescrubbed to return to the operative field and again inspected the field for hemostasis. After final assessment for hemostasis, the patient was returned to neutral position, a [place] used to withdraw the resected gastric specimen which was sent for permanent section. The fascia of the 12 mm midline was closed using an 0 Polysorb figure of 8 on a suture passer under direct laparoscopic vision. The abdomen was then deflated and all trocars removed. The suture was then tied and the skin closed with 4-0 Monocryl subcuticular sutures. The abdomen was then washed and dried, benzoin and Steri-Strips applied followed by Tegaderms. The patient tolerated the procedure well was then extubated the recover in stable condition. All sponge needle and instrument counts were correct x2. At the patient's request, I contacted Stacie at [phone]. There was no answer. A message stating everything went well was left. ]
--- NOTE | 2023-03-16 06:58 | MHC.SHP ---
Pre-Procedural Eval Section A Date of Service: 03/16/23 The patient is an INPATIENT: Yes The History & Physical has been completed within 30 days and I have reviewed it.: Yes Section B Chief Complaint: Obesity, unspecified Allergies: Allergies Allergy/AdvReac Type Severity Reaction Status Date / Time cat dander Allergy Intermediate Runny Verified 03/11/23 11:46 Nose, sneezing dog dander Allergy Intermediate Runny Verified 03/11/23 11:46 Nose, sneezing seasonal allergies Allergy Unknown Unknown Uncoded 07/10/21 08:56 Seasonal IC Allergy Unknown Unknown Uncoded 07/10/21 08:56 Plan I have reviewed the history and physical and performed a pertinent physical examination on my patient. No changes have occurred unless specified. Time Spent With Patient Time: Total time managing care of this patient today ____ minutes.
[2023-03-16 08:46] LABS: UPreg QC Valid YES; Urine Pregnancy NEGATIVE (NEGATIVE)
[2023-03-16] MEDS: Lactated Ringers 1,000 ML 150 ML IVCONT (08:46)
[2023-03-16] MEDS: Aprepitant 32 MG/4.4 ML VIAL IVPUSH (08:47)
--- NOTE | 2023-03-16 13:03 | P.DS_ITS ---
DS: Providers Provider Date of Service: 03/17/23 Date of admission: 03/16/23 08:16 Primary care physician: Unknown Physician DS: Summary Hospital Course Hospital Course: ADMITTING DIAGNOSIS: morbid obesity,?NAFLD, anxiety, PCOS, back pain ? DISCHARGE DIAGNOSIS: same, s/p laparoscopic sleeve gastrectomy and gastropexy ? PAST SURGICAL HISTORY:? ? PROCEDURE: upper endoscopy, laparoscopic sleeve gastrectomy and gastropexy ? DISCHARGE SUMMARY: ? History of Present Illness: ? The patient is a? 28? year-old woman with a BMI of? ?36.8 ? kg/m2 and associated co-morbidities as described above. The patient had extensive work-up, lost? ?33.2 ? lbs preoperatively and was electively scheduled for laparoscopic, possible open sleeve gastrectomy and gastropexy. Risks and complications of the surgery were discussed with the patient in advance, particularly the possibility of , pulmonary embolism, anastomotic leak, bleeding, bowel injury, GERD, cardiac, renal or pulmonary complications. The patient understood all the risks and was in agreement with the surgical plan. ? Hospital Course: ? The patient underwent an uneventful laparoscopic sleeve gastrectomy with gastropexy on the day of admission. Postoperatively, the patient was transferred to the surgical floor. The patient received IV Acetaminophen and IV dilaudid for pain control. Patient was started on bariatric phase 1 diet POD #0. On postoperative day one, the patient was feeling well without nausea, vomiting, fevers, or tachycardia. The patient had some mild incisional pain and the abdomen was soft.? ? On the morning of postoperative day one, the patient was continued on 1 ounce of water or ice every half hour. During the day, the patient did fairly well, h aving some incisional pain, but able to ambulate adequately and to tolerate liquids well. ? Since the patient is doing well, we decided that the patient was ready to be discharged. The patient was given instructions to follow-up with me next week and to call my office for any fever over 101, persistent abdominal pain, nausea, vomiting, GERD, symptoms of DVT such as calf tenderness, or leg swelling, or pulmonary embolism such as chest pain or shortness of breath.? The patient was also instructed to drink 40-60 ounces of liquids per day using the 1-ounce cups. The patient had been given prescriptions for Tylenol for pain, Zofran prn for nausea, and pantoprazole and carafate previously. The patient was encouraged to ambulate and use the incentive spirometer. The patient was allowed to shower, but no baths, and encouraged to stay active at home. All of these instructions were given to the patient personally. All questions were answered and the patient understood all instructions, the instructions were also given to the patient in print. Time Spent with Patient Time attestation: Total time managing care of this patient today ____ minutes. Discharge coordination time: Less than 30 minutes Quality: Safe Use of Opioids Does Pt have an Active Cancer Diagnosis on the Problem List?: No Quality: Stroke Does the patient have a stroke diagnosis?: No Physical Exam Vital Signs: Vital Signs: Last Vital Signs Temp 98.6 F 03/16/23 12:54 Pulse 78 03/16/23 12:59 Resp 17 03/16/23 12:59 BP 141/71 H 03/16/23 12:59 Pulse Ox 100 03/16/23 12:59 O2 Del Method Nasal Cannula 03/16/23 12:59 O2 Flow Rate 4 03/16/23 12:59 BMI result Body Mass Index 36.8 DS: Data Data Completed and Pending Pending studies at discharge: Pending at discharge 03/16/23 12:26 Surgical [PTH] Routine Labs on day of discharge: Laboratory Results - last 24 hr 03/15/23 03/16/23 12:45 08:16 Urine Test NEGATIVE COVID-19 ([facility]OLY) Negative COVID-19 Clin Com See Note Discharge Plan Discharge Anticipated Discharge Date/Time: 03/17/23 10:00 Patient Disposition: Home, Self-Care Discharge Diagnosis: morbid obesity s/p laparoscopic sleeve gastrectomy Referrals: Physician,Unknown J [Primary Care Provider] - 1 Week Discharge Medications: Continued ondansetron HCl 4 mg tablet 4 mg PO Q6H PRN (Reason: nausea and vomiting) Qty: 20 0RF pantoprazole 40 mg tablet,delayed release (DR/EC) 40 mg PO QAM 30 Days Qty: 30 2RF sucralfate 100 mg/mL suspension 10 ml PO BID 30 Days Qty: 600 2RF acetaminophen 500 mg/15 mL liquid 500 mg PO Q6H PRN (Reason: fever or pain) Qty: 237 2RF albuterol sulfate [ProAir HFA] 90 mcg/actuation HFA aerosol inhaler 2 puff inhalation Q6H PRN (Reason: Shortness Of Breath Or Wheezing) Discontinued polyethylene glycol 3350 [Miralax] 17 gram powder in packet See Rx Instructions PO DAILY Qty: 14 0RF Rx Instructions: Take 7 packets 2 days before surgery and 7 packets 1 day before surgery. Mix each packet with 8 oz's of water before surgery. Discharge Orders: Discharge Order (Routine); Ordered 03/17/23 Ordered By: Fina Hernández Activity on Discharge: No heavy lifting Stand Alone Forms: Patient Portal Discharge page Care Plan Goals: weight loss Health Concerns: obesity Plan of Treatment: No tub baths, sex or returning to work until discussed at first post op appointment. No alcohol, tobacco or illegal drug use. Continue to use incentive spirometer hourly while awake. Walk in home for 5- 10 minutes every 2 hours during the first week. Wear abdominal binder with activity. Follow all meal plan instructions from your bariatric surgeon. Review bariatric handbook and call with any questions. Discharge Instructions 1. Please call your doctor or come back to the emergency room should any new symptoms arise. 2. Activity: abstain from alcohol,? limited stair climbing, no bending, no driving, no exercise, no illicit substances, no lifting, no sex, no tub bath, no work. 4. Diet: follow your bariatric surgeons recommendations for advancing diet. 5. Dressing Change/Wound Care: Your incisions are covered with waterproof dressings. You can shower with these and pat dry. Do not rub over dressings or incisions. If the area is tender, you may apply an ice pack for short intervals (no more than 20 minutes on, followed by at least 20 minutes off). Do not apply heat. Do not use creams, lotions, or topical antibiotics unless instructed to do so by your surgeon. 6. Call your doctor if: - Your temperature exceeds 101.5 F - You experience excessive pain or swelling - You have an unexpected reaction to medication - You have excessive bleeding - You experience continued vomiting/nausea - Your incision begins to separate - Your incision shows signs of infection such as increased redness, swelling, excessive pain, heat, or drainage (light blood or clear fluid is normal) General instructions: No lifting greater than 10 lbs for the next 6 weeks[address] within 24 hours of taking narcotic pain medications. If you do not move your bowels in the next 2 days, please take milk of magnesia over the counter. Please follow the post op diet and do not advance your diet until you are seen in the office in about 2 weeks. Please walk around your home every hour or two to prevent blood clots from forming in your legs. You do not need to wake from sleeping to walk. Please sleep in a bed or couch to prevent kinking at the hips and knees. Please take your incentive spirometer (your lung negotiations director) home with you and use it for the next few days to prevent pneumonias. You may shower, no hot tubs, baths or swimming pools. Please call the office with any questions or concerns such as increasing abdominal pain, fever, chills, shortness of breath, chest pain, leg pain or swelling, or redness or drainage from your incisions. Please make sure you are consuming 40-60 ounces of total fluids per day. Avoid all carbonation. Do not hesitate to contact the office with any questions at . The patient's medical history has been reviewed and they are considered low risk for post op DVT and therefore DVT prophylaxis is not considered necessary. Travel after surgery was reviewed. The patient has not disclosed any travel plans during the first 30 days after surgery and they have been advised that within the first 30 days after surgery any bus, plane, train or car travel over 2 hours in duration is contraindicated due to the possibility of developing blood clots from immobility. Any travel, needs to include periods of ambulation of 10 minutes in duration every 2 hours.? The patient was instructed to discuss any plans for travel during this period with their bariatric surgeon. Assessment: s/p laparoscopic sleeve gastrectomy with gastropexy
[2023-03-16 14:20] LABS: Hematocrit 39.3 % (37.0-47.0); Hemoglobin 13.7 g/dl (12.0-16.0)
[2023-03-16 14:44] LABS: Anion Gap 18 (12-20); Blood Urea Nitrogen 9 mg/dL (9-16); Calcium 8.9 mg/dL (8.4-10.2); Carbon Dioxide 24 mmol/L (22-29); Chloride 102 mmol/L (96-108); Creatinine Clr Calc Pharmacy 130.6; Estimated Glomerular Filt Rate > 60; Glucose Random 117 mg/dL (60-115); Potassium 3.7 mmol/L (3.3-5.1); Sodium 140 mmol/L (135-145)
[2023-03-16 14:48] LABS: HCG Quantitative < 2 mIU/mL
--- NOTE | 2023-03-16 14:48 | P.PNGS_ITS ---
Subjective Subjective Date of Service: 03/16/23 Patient reports: no new complaints Interval history: The patient is seen with her significant other at the bedside. I explained that there was no answer when I tried to call the number to speak with Stacie. Patient reports mild incisional pain and some nausea but no vomiting. She has been up to urinate. She denies difficulty breathing or shortness of breath. Physical Exam Vital Signs: Vital Signs: Last Vital Signs Temp 98.6 F 03/16/23 12:54 Pulse 73 03/16/23 14:24 Resp 15 03/16/23 14:24 BP 110/64 03/16/23 14:24 Pulse Ox 99 03/16/23 14:24 O2 Del Method Nasal Cannula wit h Capnography 03/16/23 14:24 O2 Flow Rate 2 03/16/23 14:24 BMI result Body Mass Index 36.8 On exam she is nontoxic She is in no acute distress Her abdominal binder is clean and intact Objective Data Active Medications Fentanyl (Fentanyl Citrate/Pf 100 Mcg/2 Ml Vial) 50 mcg IVPUSH Q5M PRN; Protocol PRN Reason: Pain, Severe (Pain Scale 7-10) Hydromorphone HCl (Hydromorphone Hcl 0.5 Mg/0.5 Ml Syringe) 0.5 mg IVPUSH Q5M PRN; Protocol PRN Reason: Pain, Severe (Pain Scale 7-10) Lactated Ringer's (Lr) 1,000 mls @ 150 mls/hr IVCONT .Q6H40M [facility] Last Infusion: 03/16/23 14:42 Dose: 0 mls/hr Documented By: RENE Promethazine HCl 12.5 mg/ (Sodium Chloride) 50.5 mls @ 202 mls/hr IV ONCE PRN PRN Reason: Nausea and Vomiting Lactated Ringer's (Lr) 1,000 mls @ 100 mls/hr IVCONT .Q10H RAFAELA Ondansetron HCl (Ondansetron Hcl 4 Mg/2 Ml Vial) 4 mg IVPUSH ONCE PRN PRN Reason: Nausea and Vomiting Labs 03/16/23 13:56 03/16/23 13:56 Labs: Laboratory Results - last 24 hr 03/16/23 03/16/23 08:16 13:56 Anion Gap 18 Estim Creat Clear Calc 130.6 Estimated GFR > 60 Random Glucose 117 H Calcium 8.9 D Urine Test NEGATIVE Procedures Date of Service Date of Service: 03/16/23 Progress Note: A&P Assessment and plan (1) S/P laparoscopic sleeve gastrectomy: Status: Acute (2) Morbid obesity: Status: Acute (3) PCOS (polycystic ovarian syndrome): Status: Acute (4) H. pylori infection: Status: Acute (5) NAFLD (nonalcoholic fatty liver disease): Status: Acute (6) Hepatomegaly: Status: Acute Plan See orders Begin sips of water and encourage ambulation. Trend labs. Time Spent With Patient Time: Total time managing care of this patient today ____ minutes. Quality Stroke Does the patient have a stroke diagnosis?: No VTE Prior VTE?: No VTE Risk Level:: Surgical - moderate VTE Device Contraindication: N/A - Device Ordered VTE Drug Contraindication: Treatment Not Indicated
[2023-03-16] MEDS: Lactated Ringers 1,000 ML 100 ML IVCONT ×2 (14:50→23:29)
[2023-03-16] MEDS: ondansetron HCL 4 MG/2 ML VIAL IVPUSH ×2 (15:32→23:34)
[2023-03-16] MEDS: ceFAZolin Sodium/Dextrose,Iso 2 GM/50 ML PIGGYBACK IV (15:40)
[2023-03-16] MEDS: Acetaminophen 1,000 MG/100 ML PIGGYBACK 16.7 MG IV ×2 (17:00→23:30)
[2023-03-16] MEDS: Famotidine/PF 20 MG/2 ML VIAL IVPUSH (23:34)
[2023-03-16] MEDS: 0.9 % Sodium Chloride Flush 3 ML SYRINGE IVFLUSH (23:34)
[2023-03-17 00:05] VITALS: BP 109/57; PULSE 53; RESP 18; TEMP 36.5; O2SAT 99
[2023-03-17 03:56] VITALS: BP 106/55; PULSE 65; RESP 18; TEMP 36.3; O2SAT 96
[2023-03-17] MEDS: Acetaminophen 1,000 MG/100 ML PIGGYBACK 16.7 MG IV (05:53)
[2023-03-17 06:55] LABS: MANUAL DIFF FLAG NO
[2023-03-17 07:00] LABS: Hematocrit 37.4 % (37.0-47.0); Hemoglobin 13.2 g/dl (12.0-16.0); Imm Gran Abs Auto 0.02 X10*3/uL (0.00-0.03); Imm Gran Pct Auto 0.2 % (0.0-0.4); Lymphocytes Absolute Auto 0.9 X10*3/uL (1.2-4.9); Lymphocytes Percent Auto 9.6 % (20-40); Mean Corpuscular HGB Conc 35.3 g/dl (31.0-35.0); Mean Corpuscular Hemoglobin 31.6 pg (27.0-33.0); Mean Corpuscular Volume 89.5 fL (80.0-98.0); Mean Platelet Volume 11.1 fL (9.4-12.3); Monocytes Absolute Auto 0.6 X10*3/uL (0.1-1.2); Monocytes Percent Auto 5.9 % (2-11); Neutrophils Absolute Auto 7.8 x10*3/uL (2.0-8.3); Neutrophils Percent Auto 84.3 % (45-73); Platelet Count 295 X10*3/uL (160-400); Red Blood Count 4.18 X10*6/uL (4.20-5.50); Red Cell Distribution Width 11.9 % (11.0-16.0); White Blood Count 9.3 X10*3/uL (4.8-10.8)
[2023-03-17] MEDS: Famotidine/PF 20 MG/2 ML VIAL IVPUSH (07:09)
[2023-03-17] MEDS: 0.9 % Sodium Chloride Flush 3 ML SYRINGE IVFLUSH (07:10)
[2023-03-17] MEDS: ondansetron HCL 4 MG/2 ML VIAL IVPUSH (07:10)
[2023-03-17 07:13] VITALS: BP 107/59; PULSE 51; RESP 18; TEMP 35.9; O2SAT 98
--- NOTE | 2023-03-17 07:19 | PM.PNGS ---
Subjective Subjective Date of Service: 03/17/23 Patient reports: no new complaints, feels better and tolerating liquids well Interval history: The patient notes that she is feeling better this morning and has no nausea, vomiting and that she is tolerating liquids. She has had no regurgitation, odynophagia or dysphagia and denies any GERD. She also denies difficulty breathing or shortness of breath. She has notes that her pain is adequately controlled Physical Exam Vital Signs: Vital Signs: Last Vital Signs Temp 96.6 F L 03/17/23 07:13 Pulse 51 03/17/23 07:13 Resp 18 03/17/23 07:13 BP 107/59 L 03/17/23 07:13 Pulse Ox 98 03/17/23 07:13 O2 Del Method Room Air 03/17/23 07:13 O2 Flow Rate 2 03/16/23 14:54 BMI result Body Mass Index 36.8 On exam she is in good spirits and is nontoxic No respiratory distress is present Some serosanguineous staining is noted on her epigastric bandage and abdomen has appropriate incisional tenderness Objective Data Active Medications Albuterol Sulfate (Albuterol Sulfate 90 Mcg 8 Gm Inhaler) 2 puff INHALE Q6H PRN PRN Reason: Shortness Of Breath Or Wheezing Famotidine (Famotidine/Pf 20 Mg/2 Ml Vial) 20 mg IVPUSH BID [facility] Last Admin: 03/17/23 07:09 Dose: 20 mg Documented By: JENNY Hydromorphone HCl (Hydromorphone Hcl 0.5 Mg/0.5 Ml Syringe) 0.25 mg IVPUSH Q4H PRN; Protocol PRN Reason: Pain, Moderate(Pain Scale 4-6) Lactated Ringer's (Lr) 1,000 mls @ 100 mls/hr IVCONT .Q10H [facility] Last Admin: 03/16/23 23:29 Dose: 100 mls/hr Documented By: SINA Acetaminophen (Ofirmev) 1,000 mg in 100 mls @ 16.7 mls/hr IV .Q6H [facility] Last Admin: 03/17/23 05:53 Dose: 16.7 mls/hr Documented By: SINA Metoclopramide HCl (Metoclopramide Hcl 10 Mg/2 Ml Vial) 10 mg IVPUSH Q6H PRN PRN Reason: Nausea Ondansetron HCl (Ondansetron Hcl 4 Mg/2 Ml Vial) 4 mg IVPUSH Q8H [facility] Last Admin: 03/17/23 07:10 Dose: 4 mg Documented By: JENNY Sodium Chloride (0.9 % Sodium Chloride Flush 3 Ml Syringe) 3 ml IVFLUSH QSHIFT [facility] Last Admin: 03/17/23 07:10 Dose: 3 ml Documented By: JENNY Labs 03/17/23 06:05 03/16/23 13:56 Labs: Laboratory Results - last 24 hr 03/16/23 03/16/23 03/16/23 08:16 13:56 13:56 MCV MCH MCHC RDW Plt Count MPV Immature Gran % (Auto) Neut % (Auto) Lymph % (Auto) Tama % (Auto) Eos % (Auto) Baso % (Auto) Lymph # (Auto) Tama # (Auto) Eos # (Auto) Baso # (Auto) Abs Immat Gran (auto) Absolute Neuts (auto) Absolute Nucleated RBC Nucleated RBC % (auto) Anion Gap 18 Estim Creat Clear Calc 130.6 Estimated GFR > 60 Random Glucose 117 H Calcium 8.9 D Beta HCG, Quant < 2 Urine Test NEGATIVE 03/17/23 06:05 MCV 89.5 MCH 31.6 MCHC 35.3 H RDW 11.9 Plt Count 295 MPV 11.1 Immature Gran % (Auto) 0.2 Neut % (Auto) 84.3 H Lymph % (Auto) 9.6 L Tama % (Auto) 5.9 Eos % (Auto) 0.0 Baso % (Auto) 0.0 Lymph # (Auto) 0.9 L Tama # (Auto) 0.6 Eos # (Auto) 0.0 Baso # (Auto) 0.0 Abs Immat Gran (auto) 0.02 Absolute Neuts (auto) 7.8 Absolute Nucleated RBC 0.000 Nucleated RBC % (auto) 0.0 Anion Gap Estim Creat Clear Calc Estimated GFR Random Glucose Calcium Beta HCG, Quant Urine Test This morning's electrolytes are pending Procedures Date of Service Date of Service: 03/17/23 Progress Note: A&P Assessment and plan (1) S/P laparoscopic sleeve gastrectomy: Status: Acute (2) Hepatomegaly: Status: Acute (3) NAFLD (nonalcoholic fatty liver disease): Status: Acute (4) Obesity (BMI 30-39.9): Status: Acute (5) Adjustment disorder with anxiety: Status: Acute Plan Instructions regarding the importance of hydration and activity restriction reviewed. The patient is stable for discharge. Will ask the PA to follow-up on this morning's labs to ensure there are no significant electrolyte anomalies and review the patient's dietary instructions prior to discharge later this morning. Time Spent With Patient Time: Total time managing care of this patient today ____ minutes. Quality Stroke Does the patient have a stroke diagnosis?: No VTE Prior VTE?: No VTE Risk Level:: Surgical - moderate VTE Device Contraindication: N/A - Device Ordered VTE Drug Contraindication: Treatment Not Indicated
[2023-03-17 07:28] LABS: Blood Urea Nitrogen 6 mg/dL (9-16); Calcium 9.3 mg/dL (8.4-10.2); Creatinine Clr Calc Pharmacy 123.5; Estimated Glomerular Filt Rate > 60; Glucose Random 92 mg/dL (60-115)
[2023-03-17 07:48] LABS: Anion Gap 18 (12-20); Carbon Dioxide 23 mmol/L (22-29); Chloride 103 mmol/L (96-108); Potassium 4.5 mmol/L (3.3-5.1); Sodium 139 mmol/L (135-145)
--- NOTE | 2023-03-17 08:53 | MHC.CM.PN ---
CM MET WITH PT AT BEDSIDE. LIVES WITH S/O AND 2 CHILDREN IN AN APT. 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 +COVID VAX X3 NO HCP BUT WILLING TO COMPLETE WHILE HERE. PCP KIARA TOSCANO. DP: HOME, NO SERVICES ANTICIPATED. S/O OR OTHER FAMILY MEMBER WILL TRANSPORT.
--- NOTE | 2023-03-17 10:18 | MHC.CM.PN ---
DP: PT HAS BEEN MEDICALLY CLEARED FOR DC HOME, NO SERVICES. HCP COMPLETED BEFORE DC. FAMILY TO TRANSPORT HOME
--- NOTE | 2023-03-17 15:31 | HO.POSTANES ---
Post Anesthesia Evaluation Post Anesthesia Evaluation Vital Signs: Vital Signs Temp Pulse Resp BP Pulse Ox O2 Del Method 03/17/23 07:13 96.6 F L 51 18 107/59 L 98 Room Air 03/17/23 03:56 97.3 F 65 18 106/55 L 96 Room Air Anesthesia: General Endotracheal-GETA Mental Status: Awake Pain Control: Satisfactory Nausea/Vomiting: None Hydration: Adequate Anesthesia-Related Issues: No Anes. Related Issues
== END 2023-03-17 10:28 | disposition home or self-care (01) | DRG 403 ==
LOC: HO.SSSA 13:03 → HO.S3 14:30
PROVIDERS: Anesthesiology; Nurse Practitioner; Physician Assistant Surgical; Admitting Provider Surgery; PCP Physician Assistant; Visit Provider Surgery
PROC: 0DB64Z3 Excision of Stomach, Percutaneous Endoscopic Approach, Vertical (ICD-10-PCS; CPT 43845; principal; 2023-03-16 10:10)
DX: E66.01 Morbid (severe) obesity due to excess calories (principal); K76.0 Fatty (change of) liver, not elsewhere classified; E28.2 Polycystic ovarian syndrome; F41.9 Anxiety disorder, unspecified; Z68.36 Body mass index [BMI] 36.0-36.9, adult; Z20.822 Contact with and (suspected) exposure to COVID-19; Z79.899 Other long term (current) drug therapy
CPT/HCPCS: 36415; 80048; 81025; 84702; 85014; 85018; 85025; 86850; 86900; 86901; 87635; 88307; 88342; C9088; C9145; J0131; J0690; J1170; J2405; J3010

== ENCOUNTER 2023-03-22 11:45 | Emergency (ER) | payer OTHER, SELFPAY ==
--- NOTE | ~2023-03-22 | XR_ITS ---
EXAMINATION: XR CHEST, 2 VIEWS CLINICAL INFORMATION: Cough. Phlegm. COMPARISON: 12/30/2022 TECHNIQUE: PA and lateral views of the chest were obtained. FINDINGS: Lungs are clear. No consolidation, pneumothorax, or pleural effusion. Cardiac and mediastinal contours are normal. Pulmonary vasculature is unremarkable. Trachea is midline. Osseous structures are unremarkable. XR/XR chest 2V IMPRESSION: Normal chest radiographs.
[2023-03-22 12:21] VITALS: BP 105/68; PULSE 71; RESP 18; TEMP 36.7; O2SAT 99; BMI 35.4
--- NOTE | 2023-03-22 12:21 | ED.URI ---
HPI - URI/Sore Throat General Chief Complaint: Upper Respiratory Symptoms Stated Complaint: Chest congestion/Sore throat Time Seen by Provider: 03/22/23 13:37 History of Present Illness HPI Narrative: patient complains of runny nose feeling congested, mild cough and she feels if her chest is congested, she has bringing up small amounts of clear sputum She has no shortness of breath no chest pain no abdominal pain no nausea vomiting or diarrhea no ear pain no sore throat, she is tolerating p.o. Related Data Home Medications Medication Instructions Recorded Confirmed albuterol sulfate 90 mcg/actuation 2 puff inhalation Q6H PRN 01/26/21 03/16/23 aerosol inhaler (ProAir HFA) Shortness Of Breath Or Wheezing Previous Rx's Medication Instructions Recorded acetaminophen 500 mg/15 mL oral 500 mg (15 mL) PO Q6H PRN fever or 03/03/23 liquid pain #237 mL ondansetron HCl 4 mg tablet 4 mg PO Q6H PRN nausea and 03/03/23 vomiting #20 tabs pantoprazole 40 mg tablet,delayed 40 mg PO QAM 30 days #30 tabs 03/03/23 release sucralfate 100 mg/mL oral 10 ml PO BID 30 days #600 mL 03/03/23 suspension Allergies Allergy/AdvReac Type Severity Reaction Status Date / Time cat dander Allergy Intermediate Runny Verified 03/11/23 11:46 Nose, sneezing dog dander Allergy Intermediate Runny Verified 03/11/23 11:46 Nose, sneezing seasonal allergies Allergy Unknown Unknown Uncoded 07/10/21 08:56 Seasonal IC Allergy Unknown Unknown Uncoded 07/10/21 08:56 [facility] Past Medical History Source: nursing notes reviewed Medical History Morbid obesity PCOS (polycystic ovarian syndrome) Seasonal allergies Surgical History History of bilateral carpal tunnel release History of section Family History Family History Father Diabetes Mother Asthma Brother No problems noted. Brother No problems noted. Brother No problems noted. Sister No problems noted. Son No problems noted. 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) Do you presently have visiting nurse or other home services: No Alcohol intake: never Patient Tobacco Use Status: Never used Tobacco Smoked in Last 30 Days: No e-Cigarette/Vaping Use: Never Used Second Hand Smoke Exposure: No Use of substances other than those prescribed or required for medical reasons: No Advance Directives: Yes Advance Directives Information Provided: Yes Advance Directives on File: Yes Advance Directives Date on File: 03/18/23 Patient : No service: No Current occupational status: employed Current occupational exposures/hazards: No Cognitive needs: No Hearing needs: No Vision needs: Yes Physical Exam Vital Signs: Vital Signs: Last Vital Signs Temp 97.6 F 03/22/23 13:22 Pulse 50 03/22/23 13:22 Resp 18 03/22/23 13:22 BP 112/57 L 03/22/23 13:22 Pulse Ox 97 03/22/23 13:22 O2 Del Method Room Air 03/22/23 13:22 BMI result Body Mass Index 35.4 general appearance is comfortable no acute distress The ears are normal with no redness of either tympanic membrane no narrowing of canals The sinuses are non tender The eyes no redness or discharge The pharynx is clear without redness swelling or exudate the voice is normal Neck is supple Chest is clear to auscultation with full symmetric equal breath sounds Heart no murmur The extremities full range of motion x4 Skin no rash Course Course Course Narrative: RME: 28yo F w/PMHx laparoscopic sleeve gastrectomy and gastropexy by Dr. Escalera on 03/16/23 c/o sore throat, productive cough, epigastric discomfort, and chest burning x couple days. Reports generalized fatigue/weakness and decreased p.o. intake Surgical sites/abdomen appears properly healing, nontender. Posterior oropharynx mildly erythematous EKG, labs, UA, CXR, strep, COVID ordered Full HPI, ROS and PE to be performed by primary ED provider. [id number]--Dr. Escalera aware Chest x-ray was normal No acute findings in lab work or urine EKG showed sinus bradycardia with a rate of 51, normal CT interval normal QRS duration QTC was normal, no acute ischemic changes Serology testing for COVID and strep were negative Well-appearing patient tolerating p.o. breathing easily comfortable is discharged Medical Decision Making Lab Data 03/22/23 13:00 03/22/23 13:00 Labs: Lab Results 03/22/23 03/22/23 03/22/23 Range/Units 13:00 13:00 13:00 WBC 4.8 (4.8-10.8) X10*3/uL RBC 4.82 (4.20-5.50) X10*6/uL Hgb 14.9 (12.0-16.0) g/dl Hct 43.2 (37.0-47.0) % MCV 89.6 (80.0-98.0) fL MCH 30.9 (27.0-33.0) pg MCHC 34.5 (31.0-35.0) g/dl RDW 12.0 (11.0-16.0) % Plt Count 274 (160-400) X10*3/uL MPV 10.3 (9.4-12.3) fL Immature Gran % (Auto) 0.2 (0.0-0.4) % Neut % (Auto) 60.0 (45-73) % Lymph % (Auto) 27.3 (20-40) % [place] % (Auto) 9.2 (2-11) % Eos % (Auto) 2.7 (0-4) % Baso % (Auto) 0.6 (0-2) % Lymph # (Auto) 1.3 (1.2-4.9) X10*3/uL [place] # (Auto) 0.4 (0.1-1.2) X10*3/uL Eos # (Auto) 0.1 (0.0-0.4) X10*3/uL Baso # (Auto) 0.0 (0.0-0.2) X10*3/uL Abs Immat Gran (auto) 0.01 (0.00-0.03) X10*3/uL Absolute Neuts (auto) 2.9 (2.0-8.3) x10*3/uL Absolute Nucleated RBC 0.000 (0.0-0.012) X10*3/uL Nucleated RBC % (auto) 0.0 (0.0-0.2) /100WBC Sodium 139 (135-145) mmol/L Potassium 4.2 (3.3-5.1) mmol/L Chloride 100 (96-108) mmol/L Carbon Dioxide 27 (22-29) mmol/L Anion Gap 16 (12-20) BUN 9 (9-16) mg/dL Creatinine 0.76 (0.5-1.4) mg/dL Estim Creat Clear Calc 117.8 Estimated GFR > 60 Random Glucose 75 (60-115) mg/dL Calcium 9.8 (8.4-10.2) mg/dL Magnesium 1.7 (1.6-2.6) mg/dL Total Bilirubin 1.1 H (0.0-1.0) mg/dL Direct Bilirubin 0.4 (0.0-0.5) mg/dL AST 37 H (5-31) U/L ALT 53 H (0-31) U/L Alkaline Phosphatase 41 (39-117) U/L Troponin I High Sens (<3.5-17.0) ng/L Total Protein 7.1 (6.5-8.0) g/dL Albumin 4.4 (3.5-5.0) g/dL Lipase 25 (8-78) U/L Urine Color Urine Appearance Urine pH (5.0-9.0) Ur Specific [place] (1.005-1.025) Urine Protein (Neg-Trace) mg/dL Urine Glucose (UA) (Negative) mg/dL Urine Ketones (Negative) mg/dL Urine Blood (Negative) Urine Nitrite (Negative) Ur Leukocyte Esterase (Negative) COVID-19 (ROLY) Negative (Negative) COVID-19 Clin Com See Note S. pyogenes GrpA LATISHA (Negative) 03/22/23 03/22/23 03/22/23 Range/Units 13:00 14:48 14:58 WBC (4.8-10.8) X10*3/uL RBC (4.20-5.50) X10*6/uL Hgb (12.0-16.0) g/dl Hct (37.0-47.0) % MCV (80.0-98.0) fL MCH (27.0-33.0) pg MCHC (31.0-35.0) g/dl RDW (11.0-16.0) % Plt Count (160-400) X10*3/uL MPV (9.4-12.3) fL Immature Gran % (Auto) (0.0-0.4) % Neut % (Auto) (45-73) % Lymph % (Auto) (20-40) % [place] % (Auto) (2-11) % Eos % (Auto) (0-4) % Baso % (Auto) (0-2) % Lymph # (Auto) (1.2-4.9) X10*3/uL [place] # (Auto) (0.1-1.2) X10*3/uL Eos # (Auto) (0.0-0.4) X10*3/uL Baso # (Auto) (0.0-0.2) X10*3/uL Abs Immat Gran (auto) (0.00-0.03) X10*3/uL Absolute Neuts (auto) (2.0-8.3) x10*3/uL Absolute Nucleated RBC (0.0-0.012) X10*3/uL Nucleated RBC % (auto) (0.0-0.2) /100WBC Sodium (135-145) mmol/L Potassium (3.3-5.1) mmol/L Chloride (96-108) mmol/L Carbon Dioxide (22-29) mmol/L Anion Gap (12-20) BUN (9-16) mg/dL Creatinine (0.5-1.4) mg/dL Estim Creat Clear Calc Estimated GFR Random Glucose (60-115) mg/dL Calcium (8.4-10.2) mg/dL Magnesium (1.6-2.6) mg/dL Total Bilirubin (0.0-1.0) mg/dL Direct Bilirubin (0.0-0.5) mg/dL AST (5-31) U/L ALT (0-31) U/L Alkaline Phosphatase (39-117) U/L Troponin I High Sens < 2.7 (<3.5-17.0) ng/L Total Protein (6.5-8.0) g/dL Albumin (3.5-5.0) g/dL Lipase (8-78) U/L Urine Color Dark Yellow Urine Appearance Clear Urine pH 5.5 (5.0-9.0) Ur Specific [place] >= 1.030 H (1.005-1.025) Urine Protein Trace (Neg-Trace) mg/dL Urine Glucose (UA) Negative (Negative) mg/dL Urine Ketones >=160 (Negative) mg/dL Urine Blood Negative (Negative) Urine Nitrite Negative (Negative) Ur Leukocyte Esterase Negative (Negative) COVID-19 (ROLY) (Negative) COVID-19 Clin Com S. pyogenes GrpA LATISHA Negative (Negative) Discharge Plan Discharge Clinical Impression: Viral URI Patient Disposition: Home, Self-Care Additional Instructions: x-ray of her chest was normal Testing was negative for COVID or strep throat Blood tests no acute abnormalities You likely have a viral upper respiratory infection which is usually self-limited and gets better on its own Return any time for any worse condition or any concerns Follow with your doctor if not better next week For symptoms you can use Tylenol for any aches or pains and if needed you can use [id number] Afrin spray decongestant or Sudafed Prescriptions: No Action ondansetron HCl 4 mg tablet 4 mg PO Q6H PRN (Reason: nausea and vomiting) Qty: 20 0RF pantoprazole 40 mg tablet,delayed release (DR/EC) 40 mg PO QAM 30 Days Qty: 30 2RF sucralfate 100 mg/mL suspension 10 ml PO BID 30 Days Qty: 600 2RF acetaminophen 500 mg/15 mL liquid 500 mg PO Q6H PRN (Reason: fever or pain) Qty: 237 2RF albuterol sulfate [ProAir HFA] 90 mcg/actuation HFA aerosol inhaler 2 puff inhalation Q6H PRN (Reason: Shortness Of Breath Or Wheezing)
--- NOTE | 2023-03-22 12:23 | ECG_ITS ---
Test Reason : CP Blood Pressure : / mmHG Vent. Rate : 051 BPM Atrial Rate : 051 BPM P-R Int : 154 ms QRS Dur : 078 ms QT Int : 400 ms P-R-T Axes : 036 042 041 degrees QTc Int : 368 ms Sinus bradycardia with sinus arrhythmia Otherwise normal ECG When compared with ECG of 30-DEC-2022 10:19, No significant change was found Referred By: Jessica Rosales Electronically Signed By:ILAN ARZOLA
[2023-03-22 13:06] LABS: Basophils Percent Auto 0.6 % (0-2); Eosinophils Absolute Auto 0.1 X10*3/uL (0.0-0.4); Eosinophils Percent Auto 2.7 % (0-4); Hematocrit 43.2 % (37.0-47.0); Hemoglobin 14.9 g/dl (12.0-16.0); Imm Gran Abs Auto 0.01 X10*3/uL (0.00-0.03); Imm Gran Pct Auto 0.2 % (0.0-0.4); Lymphocytes Absolute Auto 1.3 X10*3/uL (1.2-4.9); Lymphocytes Percent Auto 27.3 % (20-40); MANUAL DIFF FLAG NO; Mean Corpuscular HGB Conc 34.5 g/dl (31.0-35.0); Mean Corpuscular Hemoglobin 30.9 pg (27.0-33.0); Mean Corpuscular Volume 89.6 fL (80.0-98.0); Mean Platelet Volume 10.3 fL (9.4-12.3); Monocytes Absolute Auto 0.4 X10*3/uL (0.1-1.2); Monocytes Percent Auto 9.2 % (2-11); Neutrophils Absolute Auto 2.9 x10*3/uL (2.0-8.3); Platelet Count 274 X10*3/uL (160-400); Red Blood Count 4.82 X10*6/uL (4.20-5.50); White Blood Count 4.8 X10*3/uL (4.8-10.8)
[2023-03-22 13:22] VITALS: BP 112/57; PULSE 50; RESP 18; TEMP 36.4; O2SAT 97
[2023-03-22 13:24] LABS: Alanine Aminotransferase 53 U/L (0-31); Albumin Level 4.4 g/dL (3.5-5.0); Alkaline Phosphatase 41 U/L (39-117); Anion Gap 16 (12-20); Aspartate Amino Transferase 37 U/L (5-31); Bilirubin Direct 0.4 mg/dL (0.0-0.5); Bilirubin Total 1.1 mg/dL (0.0-1.0); Blood Urea Nitrogen 9 mg/dL (9-16); Calcium 9.8 mg/dL (8.4-10.2); Carbon Dioxide 27 mmol/L (22-29); Chloride 100 mmol/L (96-108); Creatinine Clr Calc Pharmacy 117.8; Estimated Glomerular Filt Rate > 60; Glucose Random 75 mg/dL (60-115); Lipase 25 U/L (8-78); Magnesium 1.7 mg/dL (1.6-2.6); Potassium 4.2 mmol/L (3.3-5.1); Sodium 139 mmol/L (135-145); Total Protein 7.1 g/dL (6.5-8.0)
[2023-03-22 13:32] LABS: Troponin-I High Sensitivity < 2.7 ng/L (<3.5-17.0)
[2023-03-22 13:54] LABS: COVID-19 Test Negative (Negative); IDNOW Serial# BCCEAD1C
[2023-03-22 15:07] LABS: Appearance Urine Clear; Color Urine Dark Yellow; Glucose Urine UA Negative (Negative); Leukocyte Esterase Urine Negative (Negative); Nitrite Urine Negative (Negative); PH 5.5 (5.0-9.0); Specific Gravity - Urine >= 1.030 (1.005-1.025); Urine Blood Negative (Negative); Urine Ketones >=160 mg/dL (Negative); Urine Protein Trace mg/dL (Neg-Trace)
[2023-03-22 15:21] LABS: IDNOW Serial# 08D9AD1C; Strep A Nucleic Acid Negative (Negative)
== END 2023-03-22 15:48 | disposition home or self-care (01) ==
PROVIDERS: Physician Assistant; Emergency Provider Emergency Medicine Emergency Medical Services; PCP Physician Assistant
DX: J06.9 Acute upper respiratory infection, unspecified (principal); R09.89 Other specified symptoms and signs involving the circulatory and respiratory systems; J02.9 Acute pharyngitis, unspecified; Z20.822 Contact with and (suspected) exposure to COVID-19
CPT/HCPCS: 36415; 71046; 80048; 80076; 81003; 83690; 83735; 84484; 85025; 87635; 87651; 93005; 99284

== ENCOUNTER → 2023-03-24 08:05 | Outpatient (BNVA) | payer OTHER, SELFPAY | PROVIDERS: PCP Physician Assistant; Referring Provider Physician Assistant; Visit Provider Physician Assistant Surgical | DX: E66.01 Morbid (severe) obesity due to excess calories (principal); Z98.84 Bariatric surgery status; Z68.34 Body mass index [BMI] 34.0-34.9, adult | CPT/HCPCS: 99212 ==

== ENCOUNTER → 2023-03-29 16:29 | Outpatient (BNVA) | payer OTHER, SELFPAY | PROVIDERS: PCP Physician Assistant; Visit Provider Surgery | DX: E66.9 Obesity, unspecified (principal); Z68.33 Body mass index [BMI] 33.0-33.9, adult; R16.0 Hepatomegaly, not elsewhere classified; K76.0 Fatty (change of) liver, not elsewhere classified; R21 Rash and other nonspecific skin eruption; Z98.84 Bariatric surgery status | CPT/HCPCS: 99212 ==

== ENCOUNTER → 2023-04-04 11:48 | Outpatient (BNVA) | payer OTHER, SELFPAY | PROVIDERS: PCP Physician Assistant; Referring Provider Physician Assistant; Visit Provider Physician Assistant Surgical | DX: E66.9 Obesity, unspecified (principal); R21 Rash and other nonspecific skin eruption; Z98.84 Bariatric surgery status; Z68.33 Body mass index [BMI] 33.0-33.9, adult | CPT/HCPCS: 99212 ==

== ENCOUNTER 2023-04-06 17:58 | Emergency (ER) | payer OTHER, SELFPAY ==
[2023-04-06 18:02] VITALS: BP 114/70; PULSE 86; RESP 19; TEMP 36.6; O2SAT 99; BMI 33.3
--- NOTE | 2023-04-06 18:06 | ED_ITS ---
HPI - General Adult General Chief complaint: Nausea/Vomiting/Diarrhea Stated complaint: here recently, reaction to prescription Time Seen by Provider: 04/06/23 19:46 Source: patient Mode of arrival: ambulatory Limitations: no limitations History of Present Illness HPI narrative: 28 year old female 3 weeks post operative for gastric sleeve presents to the ER for vomiting x 2-3 hours. Patient states that she has noticed a rash around her chest that is extending up into her face since she had the surgery. She saw her bariatric surgeon yesterday and prescribed doxycycline. She finally filled the script today took it around 15:00 and has been having retching since then. Patient denies any falls or injuries. Related Data Home Medications Medication Instructions Recorded Confirmed albuterol sulfate 90 mcg/actuation 2 puff inhalation Q6H PRN 01/26/21 04/04/23 aerosol inhaler (ProAir HFA) Shortness Of Breath Or Wheezing Previous Rx's Medication Instructions Recorded sucralfate 100 mg/mL oral 10 ml PO BID 30 days #600 mL 03/03/23 suspension cephalexin 500 mg capsule 500 mg PO QID #28 caps 04/06/23 clindamycin phosphate 1 % lotion 1 appl topical BID #60 mL 04/06/23 doxycycline hyclate 100 mg capsule 100 mg PO BID #60 caps 04/06/23 ondansetron 4 mg disintegrating 4 mg PO Q6H #20 tabs 04/06/23 tablet sulfamethoxazole 800 1 tab PO BID #14 tabs 04/06/23 mg-trimethoprim 160 mg tablet (Bactrim DS) Allergies Allergy/AdvReac Type Severity Reaction Status Date / Time cat dander Allergy Intermediate Runny Verified 04/06/23 18:02 Nose, sneezing dog dander Allergy Intermediate Runny Verified 04/06/23 18:02 Nose, sneezing seasonal allergies Allergy Unknown Unknown Uncoded 04/06/23 18:02 Seasonal IC Allergy Unknown Unknown Uncoded 04/06/23 18:02 Review of Systems Review of Systems: Review of systems: General: Patient denies any fever chills recent illness or falls Musculoskeletal: Denies back pain or body aches or other injuries HEENT: denies headache, runny nose, ear pain Respiratory: denies shortness of breath, cough Cardiovascular: no chest pain or palpitations : denies dysuria, frequency Abdomen: nausea vomiting denies abdominal pain Extremities: no swelling, no pain Skin: no diaphoresis Yes all other systems are reviewed and are negative PMF Past Medical History Medical History Morbid obesity PCOS (polycystic ovarian syndrome) Seasonal allergies Surgical History History of bilateral carpal tunnel release History of section Family History Family History Father Diabetes Mother Asthma Brother No problems noted. Brother No problems noted. Brother No problems noted. Sister No problems noted. Son No problems noted. 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) Do you presently have visiting nurse or other home services: No Alcohol intake: never Patient Tobacco Use Status: Never used Tobacco Smoked in Last 30 Days: No e-Cigarette/Vaping Use: Never Used Second Hand Smoke Exposure: No Use of substances other than those prescribed or required for medical reasons: No Advance Directives: Yes Advance Directives on File: Yes Advance Directives Date on File: 03/18/23 Patient : No service: No Current occupational status: employed Current occupational exposures/hazards: No Cognitive needs: No Hearing needs: No Vision needs: Yes Physical Exam ED Vital Signs: Vital Signs - 24 hr 04/06/23 18:02 04/06/23 19:49 Temperature 98 F 98 F Pulse Rate 86 50 Respiratory Rate 19 16 Blood Pressure 114/70 Pulse Oximetry 99 99 Oxygen Delivery Method Room Air Room Air BMI result Body Mass Index 33.3 General: Well-appearing well-nourished in no signs of distress HEENT: Normocephalic atraumatic Neck: No signs of JVD, no masses no tenderness or lymphadenopathy Cardiovascular: Regular rate and rhythm Respiratory: Clear to auscultation bilaterally Abdomen: Soft obese with healing surgical scar and bruising Extremities: Normal pedal pulses no signs of edema Skin: Dry warm Rash to face and chest consistent with dermatitis Back: No tenderness full ROM Course Course Course Narrative: RME- 28-year-old female presents for evaluation of vomiting. Patient reports that she had bariatric surgery for a gastric sleeve 3 weeks ago. She states that she is also prescribed doxycycline for a skin infection which he started today. She reports persistent nausea and vomiting today. Plan for labs, UA Reevaluation(s) Reevaluation #1: 2043 Patient feeling much better and is okay with the plan to go home Medications Administered Generic Name Dose Route Start Last Admin Trade Name Freq PRN Reason Stop Dose Admin Sodium Chloride 1,000 mls @ 999 mls/hr 04/06/23 20:00 04/06/23 20:26 Ns IV 04/06/23 21:00 999 mls/hr .Q1H1M RAFAELA Administration Discontinued Medications Generic Name Dose Route Start Last Admin Trade Name Freq PRN Reason Stop Dose Admin Ondansetron HCl 4 mg 04/06/23 19:57 04/06/23 20:29 Ondansetron Odt 4 Mg Tab.Rapdis TRANSLINGU 04/06/23 19:58 4 mg ONCE ONE Administration Medical Decision Making Medical Decision Making [facility] Narrative: Patient looks well I don't think she has a complication of her bariatric surgery as she has just vomited a few times. Her labs have already resulted and are normal. I don't think she needs any imaging. But I will call Bariatrics to make sure they are okay with them going home without imaging. Differential Diagnosis Differential Diagnoses: The differential diagnosis associated with the presentation includes Gastritis due to doxycycline most likely no signs of toxicity belly exam is benign but since she is so recently post operative this could be a problem with the procedure. Admission/Observation Consideration of admission/observation: Escalation of care including admission/observation considered Consult Healthcare Provider Management of the patient was discussed with: [facility] Bariatric surgery I spoke with Fina Hernández agrees with no imaging on the patient even though she is recently post operative. She can have the antibiotics changed and follow up outpatient. Lab Data [facility] Lab Attestation statement: I reviewed the patient's lab results. 04/06/23 18:14 04/06/23 18:14 Labs: Lab Results 04/06/23 04/06/23 Range/Units 18:14 18:14 WBC 4.9 (4.8-10.8) X10*3/uL RBC 4.55 (4.20-5.50) X10*6/uL Hgb 14.2 (12.0-16.0) g/dl Hct 41.4 (37.0-47.0) % MCV 91.0 (80.0-98.0) fL MCH 31.2 (27.0-33.0) pg MCHC 34.3 (31.0-35.0) g/dl RDW 12.3 (11.0-16.0) % Plt Count 210 (160-400) X10*3/uL MPV 11.8 (9.4-12.3) fL Immature Gran % (Auto) 0.4 (0.0-0.4) % Neut % (Auto) 58.4 (45-73) % Lymph % (Auto) 28.8 (20-40) % [place] % (Auto) 9.7 (2-11) % Eos % (Auto) 2.1 (0-4) % Baso % (Auto) 0.6 (0-2) % Lymph # (Auto) 1.4 (1.2-4.9) X10*3/uL [place] # (Auto) 0.5 (0.1-1.2) X10*3/uL Eos # (Auto) 0.1 (0.0-0.4) X10*3/uL Baso # (Auto) 0.0 (0.0-0.2) X10*3/uL Abs Immat Gran (auto) 0.02 (0.00-0.03) X10*3/uL Absolute Neuts (auto) 2.8 (2.0-8.3) x10*3/uL Absolute Nucleated RBC 0.000 (0.0-0.012) X10*3/uL Nucleated RBC % (auto) 0.0 (0.0-0.2) /100WBC Sodium 142 (135-145) mmol/L Potassium 4.0 (3.3-5.1) mmol/L Chloride 103 (96-108) mmol/L Carbon Dioxide 26 (22-29) mmol/L Anion Gap 17 (12-20) BUN 10 (9-16) mg/dL Creatinine 0.82 (0.5-1.4) mg/dL Estim Creat Clear Calc 105.7 Estimated GFR > 60 Random Glucose 80 (60-115) mg/dL Calcium 9.7 (8.4-10.2) mg/dL Total Bilirubin 1.1 H (0.0-1.0) mg/dL AST 25 (5-31) U/L ALT 32 H (0-31) U/L Alkaline Phosphatase 47 (39-117) U/L Total Protein 7.0 (6.5-8.0) g/dL Albumin 4.3 (3.5-5.0) g/dL Lipase 37 (8-78) U/L Independent Historian Clinical information obtained from an independent historian. History obtained from or confirmed by: Parent External Record Review External record reviewed: Inpatient record Prescription Management I considered prescription management with: Antibiotic keflex and bactrim with zofran for nausea Discharge Plan Discharge Clinical Impression: Impetigo, Vomiting, Post surgical complication Patient Disposition: Home, Self-Care Instructions: Acute Nausea and Vomiting (ED) Additional Instructions: You were seen today for acute nausea and vomiting. You had labs checked which were all normal Please call to follow up. I did change your antibiotic to two antibiotics. You can also take zofran as needed for vomiting. If you start to have pain or have any other concerns please return to the ED. Prescriptions: New sulfamethoxazole-trimethoprim [Bactrim DS] 800-160 mg tablet 1 tab PO BID Qty: 14 0RF cephalexin 500 mg capsule 500 mg PO QID Qty: 28 0RF ondansetron 4 mg tablet,disintegrating 4 mg PO Q6H Qty: 20 0RF No Action sucralfate 100 mg/mL suspension 10 ml PO BID 30 Days Qty: 600 2RF clindamycin phosphate 1 % lotion 1 appl topical BID Qty: 60 1RF doxycycline hyclate 100 mg capsule 100 mg PO BID Qty: 60 0RF albuterol sulfate [ProAir HFA] 90 mcg/actuation HFA aerosol inhaler 2 puff inhalation Q6H PRN (Reason: Shortness Of Breath Or Wheezing)
[2023-04-06 18:18] LABS: MANUAL DIFF FLAG NO
[2023-04-06 18:41] LABS: Basophils Percent Auto 0.6 % (0-2); Eosinophils Absolute Auto 0.1 X10*3/uL (0.0-0.4); Eosinophils Percent Auto 2.1 % (0-4); Hematocrit 41.4 % (37.0-47.0); Hemoglobin 14.2 g/dl (12.0-16.0); Imm Gran Abs Auto 0.02 X10*3/uL (0.00-0.03); Imm Gran Pct Auto 0.4 % (0.0-0.4); Lymphocytes Absolute Auto 1.4 X10*3/uL (1.2-4.9); Lymphocytes Percent Auto 28.8 % (20-40); Mean Corpuscular HGB Conc 34.3 g/dl (31.0-35.0); Mean Corpuscular Hemoglobin 31.2 pg (27.0-33.0); Mean Platelet Volume 11.8 fL (9.4-12.3); Monocytes Absolute Auto 0.5 X10*3/uL (0.1-1.2); Monocytes Percent Auto 9.7 % (2-11); Neutrophils Absolute Auto 2.8 x10*3/uL (2.0-8.3); Neutrophils Percent Auto 58.4 % (45-73); Platelet Count 210 X10*3/uL (160-400); Red Blood Count 4.55 X10*6/uL (4.20-5.50); Red Cell Distribution Width 12.3 % (11.0-16.0); White Blood Count 4.9 X10*3/uL (4.8-10.8)
[2023-04-06 18:45] LABS: Alanine Aminotransferase 32 U/L (0-31); Albumin Level 4.3 g/dL (3.5-5.0); Alkaline Phosphatase 47 U/L (39-117); Anion Gap 17 (12-20); Aspartate Amino Transferase 25 U/L (5-31); Bilirubin Total 1.1 mg/dL (0.0-1.0); Blood Urea Nitrogen 10 mg/dL (9-16); Calcium 9.7 mg/dL (8.4-10.2); Carbon Dioxide 26 mmol/L (22-29); Chloride 103 mmol/L (96-108); Creatinine Clr Calc Pharmacy 105.7; Estimated Glomerular Filt Rate > 60; Glucose Random 80 mg/dL (60-115); Lipase 37 U/L (8-78); Sodium 142 mmol/L (135-145)
[2023-04-06 19:49] VITALS: PULSE 50; RESP 16; TEMP 36.6; O2SAT 99
[2023-04-06] MEDS: 0.9 % Sodium Chloride 1,000 ML 999 ML IV (20:26)
[2023-04-06] MEDS: Ondansetron ODT 4 MG TAB.RAPDIS TRANSLINGU (20:29)
[2023-04-06] MEDS: Sulfamethox/Trimeth 800/160 TABLET 1 TAB PO (20:54)
[2023-04-06] MEDS: cephALEXin 500 MG CAPSULE PO (20:54)
--- NOTE | 2023-04-06 20:55 | PC.NURSE ---
Pt ca&ox3, no signs of distress. pts family at bedside. Pt medicated per mar. Will continue to monitor.
[2023-04-06 21:39] VITALS: BP 84/44; PULSE 48; RESP 12; TEMP 36.7; O2SAT 99
--- NOTE | 2023-04-06 21:39 | PC.NURSE ---
Pt ca&ox3, no signs of distress. Pt tolerated po meds. Denies chest pain and sob. HR 48, provider made aware. Family remains at bedside. Will continue to monitor.
== END 2023-04-06 21:49 | disposition home or self-care (01) ==
PROVIDERS: Physician Assistant; Emergency Provider Student in an Organized Health Care Education/Training Program; PCP Physician Assistant
DX: L01.00 Impetigo, unspecified (principal); R11.10 Vomiting, unspecified; K95.89 Other complications of other bariatric procedure; Y84.8 Other medical procedures as the cause of abnormal reaction of the patient, or of later complication, without mention of misadventure at the time of the procedure; Y92.9 Unspecified place or not applicable; Z98.84 Bariatric surgery status
CPT/HCPCS: 36415; 80053; 83690; 85025; 96360; 99284

== ENCOUNTER → 2023-04-11 14:00 | Outpatient (BNVA) | payer OTHER, SELFPAY | PROVIDERS: PCP Physician Assistant; Visit Provider Counselor Mental Health ==

== ENCOUNTER 2023-04-12 11:37 | Inpatient (IN) | payer OTHER, SELFPAY ==
[2023-04-12] VITALS (8 sets, daily range): BP systolic 93–126; BP diastolic 40–70; PULSE 43–88; RESP 16–20; TEMP 36.2–36.5; O2SAT 93–100; BMI 33.1
--- NOTE | ~2023-04-12 | FL_ITS ---
EXAMINATION: Upper GI barium swallow CLINICAL INFORMATION: Nausea and vomiting. History of gastric sleeve February 2023 COMPARISON: Preoperative exam January 2023 TECHNIQUE: Single contrast barium swallow and upper GI were performed using thin barium. Effervescent granules were not administered due to patient's history of recent surgery. Fluoroscopy time 0.6 minutes. DAP 18.5 aceves per centimeter squared. Total dose 45 mg. 23 saved fluoroscopic images and 2 overhead images FINDINGS: The swallowing mechanism is normal. No aspiration or penetration. Esophageal motility is normal. There is gastroesophageal reflux. No hernia. No stricture. There are postsurgical changes to the stomach from gastric sleeve. No leak or obstruction. No ulcer is appreciated. No free air. Delayed imaging demonstrates normal proximal small bowel mucosal pattern and normal caliber small bowel. There is question of a small bowel diverticulum on the AP supine view overlying the right L1-L2 vertebral bodies. FL/FL upper GI w Ba Swallow IMPRESSION: Gastroesophageal reflux. Otherwise unremarkable exam.
--- NOTE | 2023-04-12 12:07 | ED.DIZZY ---
HPI - Dizziness General Chief Complaint: Nausea/Vomiting/Diarrhea Stated Complaint: Dizzy Dehydrated Weak Time Seen by Provider: 04/12/23 12:36 Source: patient Mode of arrival: ambulatory Limitations: no limitations History of Present Illness HPI Narrative: Patient is a 28 year old female with history of gastric bypass surgery on 03/16 presenting with weakness, decreased PO intake, nausea/vomiting, constipation, dizziness and lightheadedness for 2 weeks. She states that she is taking an oral antibiotic ( for a rash) and zofran at home and is followed by the [facility] bariatric/weight loss program. She reports that she is having difficulty with liquid PO intake due to nausea and vomiting and reports vomiting about 20 times last week. She states that she feels shaky and very low energy and has been unable to go to work or care for her children due to her weakness. She denies additional symptoms including chest pain, palpitations, shortness of breath, cough, numbness or tingling in extremities, headaches or falls. Related Data Previous Rx's Medication Instructions Recorded sucralfate 100 mg/mL oral 10 ml PO BID 30 days #600 mL 03/03/23 suspension cephalexin 500 mg capsule 500 mg PO QID #28 caps 04/06/23 clindamycin phosphate 1 % lotion 1 appl topical BID #60 mL 04/06/23 doxycycline hyclate 100 mg capsule 100 mg PO BID #60 caps 04/06/23 ondansetron 4 mg disintegrating 4 mg PO Q6H #20 tabs 04/06/23 tablet sulfamethoxazole 800 1 tab PO BID #14 tabs 04/06/23 mg-trimethoprim 160 mg tablet (Bactrim DS) lactulose 10 gram/15 mL (15 mL) 10 g (15 mL) PO DAILY PRN laxative 04/11/23 oral solution effect 15 days #473 mL Allergies Allergy/AdvReac Type Severity Reaction Status Date / Time cat dander Allergy Intermediate Runny Verified 04/12/23 12:07 Nose, sneezing dog dander Allergy Intermediate Runny Verified 04/12/23 12:07 Nose, sneezing seasonal allergies Allergy Unknown Unknown Uncoded 04/11/23 15:31 Seasonal IC Allergy Unknown Unknown Uncoded 04/11/23 15:31 Review of Systems Review of Systems: Constitutional : No Weight loss, No Fever, + Chills, +Fatigue, + Malaise Cardiovascular : No Chest Pain, No SOB, No Dyspnea on Exertion, No Orthopnea, No Edema, No Palpitations Respiratory : No Cough, No Sputum, No Wheezing Gastrointestinal : + Nausea, + Vomiting, No Diarrhea, + Constipation, + abdominal Pain in epigastric region, No Hematochezia, No Melena Genitourinary : No Dysuria, No Urinary Frequency, No Hematuria, Musculoskeletal : No joint pain, No Myalgias, No Joint Swelling Skin : No Skin Lesions, No rash Neuro : + Weakness, No Numbness, No Dizziness, No Headache Psych : No Anxiety/Panic, No Depression All other systems reviewed and are negative Yes all other systems are reviewed and are negative [facility] Past Medical History Attestation statement: The following information was validated with the patient. Source: old records reviewed and nursing notes reviewed Medical History (Updated 04/12/23 @ 16:48 by TABITHA Steve) Morbid obesity PCOS (polycystic ovarian syndrome) Seasonal allergies Surgical History History of bilateral carpal tunnel release History of section History of gastric surgery Family History Family History Father Diabetes Mother Asthma Brother No problems noted. Brother No problems noted. Brother No problems noted. Sister No problems noted. Son No problems noted. 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) Do you presently have visiting nurse or other home services: No Alcohol intake: never Patient Tobacco Use Status: Never used Tobacco e-Cigarette/Vaping Use: Never Used Second Hand Smoke Exposure: No Advance Directives: Yes Advance Directives on File: Yes Advance Directives Date on File: 03/18/23 service: No Current occupational status: employed Current occupational exposures/hazards: No Cognitive needs: No Hearing needs: No Vision needs: Yes Physical Exam Vital Signs: Vital Signs: Last Vital Signs Temp 97.2 F 04/12/23 12:07 Pulse 62 04/12/23 12:52 Resp 18 04/12/23 12:07 BP 100/70 06/13/23 12:52 Pulse Ox 100 04/12/23 12:07 O2 Del Method Room Air 04/12/23 12:07 BMI result Body Mass Index 33.1 vital signs stable Appearance: Alert.? Oriented X3.? No acute distress.?Patient appears fatigued. Head: Normocephalic, atraumatic, no step-offs or deformities Eyes: Pupils equal, round and reactive to light.?.? CVS: Normal heart rate and rhythm.? Pulses normal.? Respiratory: No respiratory distress.? Breath sounds normal.? Abdomen: Soft and nontender to palpation. Laproscipic incisions present. Skin: Positive for maculopapular rash between breasts and on chin. Skin warm and dry. Normal skin turgor.? Extremities: No lower extremity edema.? No calf ttp. 5/5 strength to bilateral upper and lower extremities Neuro: Oriented X 3.? No motor deficit.? No sensory deficit. CN 2-12 intact Course Course Course Narrative: RME: 28?yo female who is s/p LSG 03/16/2023 c/o persistrent nausea and decreased PO intake x3 days w/ generalized weakness. Also reports constipation and feeling lightheaded with near syncope episode while in the bath today. Admits to vomiting last week, not at present. denies diarrhea. Was seen at PCP yesterday EKG, Labs, UA, Orthostatics, LR ordered Full HPI, ROS and PE to be performed by primary ED provider. Reevaluation(s) Reevaluation #1: CBC wnl. Chemistry unremarkable. Lipase wnl. Trop negative EKG nonischemic. Spoke to bariatrics TABITHA Aparicio cephalexin, bactrim to be stopped per order of bariatric surgery PA if no evidence of impetigo (patient reports improving rash) . As she is also on clinda and doxy. symptoms could be secondary to atbx use per bariatrics. She recommends UGI w/ barium series to r/o strictures. Time: 14:51 Reevaluation #2: Orthos negative but patient still dizzy. Dr. Escalera at bedside to evaluate pt. UGI w/ barium pending. Time: 15:00 Reevaluation #3: Upper GI series showing gastro esophageal reflux, patient will be admitted to the bariatric team for further evaluation treatment Time: 16:48 Medications Administered Discontinued Medications Generic Name Dose Route Start Last Admin Trade Name Keturah PRN Reason Stop Dose Admin Lactated Ringer's 1,000 mls @ 999 mls/hr 04/12/23 12:15 04/12/23 13:50 Lr IV 04/12/23 13:15 Infused .Q1H1M RAFAELA Infusion Sodium Chloride 1,000 mls @ 999 mls/hr 04/12/23 15:00 04/12/23 16:42 Ns IV 04/12/23 16:00 Infused .Q1H1M RAFAELA Infusion Ondansetron HCl 4 mg 04/12/23 14:46 04/12/23 15:04 Ondansetron Hcl 4 Mg/2 Ml Vial IVPUSH 04/12/23 14:47 4 mg ONCE ONE Administration Medical Decision Making Medical Decision Making [facility] Narrative: Patient is a 28 year female presenting with 2 weeks of worsening nausea, vomiting, abdominal pain, weakness and feeling dehydrated after gastric bypass surgery 4 weeks ago. Physical exam without tenderness to palpation of the abdomen. Likely electrolyte abnormalities secondary to nausea and vomiting Could be secondary to lap sleeve gastrectomy or antibiotic use currently. No diarrhea unlikely C diff.. Concerns for orthostatic hypotension. Will rule out EKG abnormalities. other differentials include gastritis. Unlikely acute abdomen, pancreatitis, cholecystitis, appendicitis or diverticulitis. Dizziness likely secondary to poor p.o. intake/dehydration, unlikely stroke, posterior stroke. NIH stroke scale 0. Plan labs, urine, imaging, orthostatic vitals plan to get the bariatric team on board. Differential Diagnosis Differential Diagnoses: The differential diagnosis associated with the presentation includes Likely electrolyte abnormalities secondary to nausea and vomiting Could be secondary to lap sleeve gastrectomy or antibiotic use currently. No diarrhea unlikely C diff.. Concerns for orthostatic hypotension. Will rule out EKG abnormalities. other differentials include gastritis. Unlikely acute abdomen, pancreatitis, cholecystitis, appendicitis or diverticulitis. Dizziness likely secondary to poor p.o. intake/dehydration, unlikely stroke, posterior stroke. NIH stroke scale 0. Admission/Observation Consideration of admission/observation: Escalation of care including admission/observation considered Lab Data [facility] Lab Attestation statement: I reviewed the patient's lab results. 04/12/23 12:33 04/12/23 12:33 Labs: Lab Results 04/12/23 04/12/23 04/12/23 Range/Units 12:33 12:33 12:33 WBC 3.2 L (4.8-10.8) X10*3/uL RBC 4.61 (4.20-5.50) X10*6/uL Hgb 14.2 (12.0-16.0) g/dl Hct 41.5 (37.0-47.0) % MCV 90.0 (80.0-98.0) fL MCH 30.8 (27.0-33.0) pg MCHC 34.2 (31.0-35.0) g/dl RDW 12.6 (11.0-16.0) % Plt Count 217 (160-400) X10*3/uL MPV 11.3 (9.4-12.3) fL Immature Gran % (Auto) 0.3 (0.0-0.4) % Neut % (Auto) 48.9 (45-73) % Lymph % (Auto) 36.8 (20-40) % Hettinger % (Auto) 10.8 (2-11) % Eos % (Auto) 2.2 (0-4) % Baso % (Auto) 1.0 (0-2) % Lymph # (Auto) 1.2 (1.2-4.9) X10*3/uL [place] # (Auto) 0.3 (0.1-1.2) X10*3/uL Eos # (Auto) 0.1 (0.0-0.4) X10*3/uL Baso # (Auto) 0.0 (0.0-0.2) X10*3/uL Abs Immat Gran (auto) 0.01 (0.00-0.03) X10*3/uL Absolute Neuts (auto) 1.5 L (2.0-8.3) x10*3/uL Absolute Nucleated RBC 0.000 (0.0-0.012) X10*3/uL Nucleated RBC % (auto) 0.0 (0.0-0.2) /100WBC Sodium 143 (135-145) mmol/L Potassium 4.2 (3.3-5.1) mmol/L Chloride 103 (96-108) mmol/L Carbon Dioxide 27 (22-29) mmol/L Anion Gap 17 (12-20) BUN 7 L (9-16) mg/dL Creatinine 0.87 (0.5-1.4) mg/dL Estim Creat Clear Calc 99.3 Estimated GFR > 60 Random Glucose 80 (60-115) mg/dL Calcium 9.6 (8.4-10.2) mg/dL Magnesium 1.8 (1.6-2.6) mg/dL Total Bilirubin 0.8 (0.0-1.0) mg/dL Direct Bilirubin 0.3 (0.0-0.5) mg/dL AST 29 (5-31) U/L ALT 30 (0-31) U/L Alkaline Phosphatase 43 (39-117) U/L Troponin I High Sens < 2.7 (<3.5-17.0) ng/L Total Protein 7.1 (6.5-8.0) g/dL Albumin 4.2 (3.5-5.0) g/dL Lipase 22 (8-78) U/L Urine Color Urine Appearance Urine pH (5.0-9.0) Ur Specific [place] (1.005-1.025) Urine Protein (Neg-Trace) mg/dL Urine Glucose (UA) (Negative) mg/dL Urine Ketones (Negative) mg/dL Urine Blood (Negative) Urine Nitrite (Negative) Ur Leukocyte Esterase (Negative) Urine Test (NEGATIVE) 04/12/23 04/12/23 Range/Units 15:22 15:22 WBC (4.8-10.8) X10*3/uL RBC (4.20-5.50) X10*6/uL Hgb (12.0-16.0) g/dl Hct (37.0-47.0) % MCV (80.0-98.0) fL MCH (27.0-33.0) pg MCHC (31.0-35.0) g/dl RDW (11.0-16.0) % Plt Count (160-400) X10*3/uL MPV (9.4-12.3) fL Immature Gran % (Auto) (0.0-0.4) % Neut % (Auto) (45-73) % Lymph % (Auto) (20-40) % Hettinger % (Auto) (2-11) % Eos % (Auto) (0-4) % Baso % (Auto) (0-2) % Lymph # (Auto) (1.2-4.9) X10*3/uL [place] # (Auto) (0.1-1.2) X10*3/uL Eos # (Auto) (0.0-0.4) X10*3/uL Baso # (Auto) (0.0-0.2) X10*3/uL Abs Immat Gran (auto) (0.00-0.03) X10*3/uL Absolute Neuts (auto) (2.0-8.3) x10*3/uL Absolute Nucleated RBC (0.0-0.012) X10*3/uL Nucleated RBC % (auto) (0.0-0.2) /100WBC Sodium (135-145) mmol/L Potassium (3.3-5.1) mmol/L Chloride (96-108) mmol/L Carbon Dioxide (22-29) mmol/L Anion Gap (12-20) BUN (9-16) mg/dL Creatinine (0.5-1.4) mg/dL Estim Creat Clear Calc Estimated GFR Random Glucose (60-115) mg/dL Calcium (8.4-10.2) mg/dL Magnesium (1.6-2.6) mg/dL Total Bilirubin (0.0-1.0) mg/dL Direct Bilirubin (0.0-0.5) mg/dL AST (5-31) U/L ALT (0-31) U/L Alkaline Phosphatase (39-117) U/L Troponin I High Sens (<3.5-17.0) ng/L Total Protein (6.5-8.0) g/dL Albumin (3.5-5.0) g/dL Lipase (8-78) U/L Urine Color Yellow Urine Appearance Clear Urine pH 6.0 (5.0-9.0) Ur Specific [place] 1.025 (1.005-1.025) Urine Protein Trace (Neg-Trace) mg/dL Urine Glucose (UA) Negative (Negative) mg/dL Urine Ketones 80 (Negative) mg/dL Urine Blood Negative (Negative) Urine Nitrite Negative (Negative) Ur Leukocyte Esterase Negative (Negative) Urine Test NEGATIVE (NEGATIVE) Independent Interpretation I performed an independent interpretation of an: Plain X-Ray Radiology Impression Discussion of test interpretation with radiology: I have reviewed the radiologist's reading. Core Measures AMI core measures followed: Yes Measure exclusions: not indicated Critical Care Time Critical Care Time Critical Care Time: Yes Total Critical Care Time: 35 Attestation: I attest to this time spent taking care of the patient, obtaining history, physical, reviewing labs, imaging, speaking to my attending, speaking to specialist. Discharge Plan Discharge Clinical Impression: Nausea & vomiting, Orthostatic dizziness, Gastroesophageal reflux disease Patient Disposition: Still a Patient
--- NOTE | 2023-04-12 12:10 | ECG_ITS ---
Test Reason : DIZZINESS Blood Pressure : / mmHG Vent. Rate : 044 BPM Atrial Rate : 044 BPM P-R Int : 162 ms QRS Dur : 078 ms QT Int : 446 ms P-R-T Axes : 040 047 047 degrees QTc Int : 381 ms Marked sinus bradycardia Abnormal ECG When compared with ECG of 22-MAR-2023 12:50, No significant change was found Referred By: Jessica Rosales Electronically Signed By:NEEL HOGAN MD
[2023-04-12 12:38] LABS: MANUAL DIFF FLAG NO
[2023-04-12 12:39] LABS: Eosinophils Absolute Auto 0.1 X10*3/uL (0.0-0.4); Eosinophils Percent Auto 2.2 % (0-4); Hematocrit 41.5 % (37.0-47.0); Hemoglobin 14.2 g/dl (12.0-16.0); Imm Gran Abs Auto 0.01 X10*3/uL (0.00-0.03); Imm Gran Pct Auto 0.3 % (0.0-0.4); Lymphocytes Absolute Auto 1.2 X10*3/uL (1.2-4.9); Lymphocytes Percent Auto 36.8 % (20-40); Mean Corpuscular HGB Conc 34.2 g/dl (31.0-35.0); Mean Corpuscular Hemoglobin 30.8 pg (27.0-33.0); Mean Platelet Volume 11.3 fL (9.4-12.3); Monocytes Absolute Auto 0.3 X10*3/uL (0.1-1.2); Monocytes Percent Auto 10.8 % (2-11); Neutrophils Absolute Auto 1.5 x10*3/uL (2.0-8.3); Neutrophils Percent Auto 48.9 % (45-73); Platelet Count 217 X10*3/uL (160-400); Red Blood Count 4.61 X10*6/uL (4.20-5.50); Red Cell Distribution Width 12.6 % (11.0-16.0); White Blood Count 3.2 X10*3/uL (4.8-10.8)
[2023-04-12 12:53] LABS: Alanine Aminotransferase 30 U/L (0-31); Albumin Level 4.2 g/dL (3.5-5.0); Alkaline Phosphatase 43 U/L (39-117); Anion Gap 17 (12-20); Aspartate Amino Transferase 29 U/L (5-31); Bilirubin Direct 0.3 mg/dL (0.0-0.5); Bilirubin Total 0.8 mg/dL (0.0-1.0); Blood Urea Nitrogen 7 mg/dL (9-16); Calcium 9.6 mg/dL (8.4-10.2); Carbon Dioxide 27 mmol/L (22-29); Chloride 103 mmol/L (96-108); Creatinine Clr Calc Pharmacy 99.3; Estimated Glomerular Filt Rate > 60; Glucose Random 80 mg/dL (60-115); Lipase 22 U/L (8-78); Magnesium 1.8 mg/dL (1.6-2.6); Potassium 4.2 mmol/L (3.3-5.1); Sodium 143 mmol/L (135-145); Total Protein 7.1 g/dL (6.5-8.0)
[2023-04-12] MEDS: Lactated Ringers 1,000 ML 999 ML IV (12:55)
--- NOTE | 2023-04-12 12:56 | PC.NURSE ---
20g Iv placed in L AC, 1l LR running per order- pt is pending lab results, abnd provider eval, ekg, and orthos completed. call alston within reach
[2023-04-12 13:06] LABS: Troponin-I High Sensitivity < 2.7 ng/L (<3.5-17.0)
[2023-04-12] MEDS: ondansetron HCL 4 MG/2 ML VIAL IVPUSH (15:04)
[2023-04-12] MEDS: 0.9 % Sodium Chloride 1,000 ML 999 ML IV (15:04)
--- NOTE | 2023-04-12 15:18 | PM.HPGS ---
History of Present Illness History of Present Illness Date of Service: 04/12/23 Chief complaint: Dizzy Dehydrated Weak Narrative: Hilario Hobson is a 28 year old female who is status post laparoscopic sleeve gastrectomy on 03/16/2023 here in [facility] [place]. She did very well, but about a week after surgery started to developed a skin rash on her sternal skin that was initially thought to be a drug reactionto Protonix, however it continued to worsen following cessation of her Protonix. Given this, she was started on doxycycline, which caused nausea and was subsequently changed on a visit to the urgent care. Patient reports ongoing nausea and episodic vomiting and inability to tolerate p.o.. She denies any vomiting and has no hematemesis. She notes that the antibiotic treatment to her upper skin, but she is still having nausea at this point I was asked to evaluate her to facilitate her care. She denies any regurgitation, odynophagia or hematemesis. Review of Systems Review of Systems: Yes all other systems are reviewed and are negative Constitutional: Constitutional: Reports as per [facility] Past Medical History Medical History (Updated 04/12/23 @ 15:21 by TABITHA Steve) Morbid obesity PCOS (polycystic ovarian syndrome) Seasonal allergies Family History Family History Father Diabetes Mother Asthma Brother No problems noted. Brother No problems noted. Brother No problems noted. Sister No problems noted. Son No problems noted. 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) Do you presently have visiting nurse or other home services: No Alcohol intake: never Patient Tobacco Use Status: Never used Tobacco e-Cigarette/Vaping Use: Never Used Second Hand Smoke Exposure: No Advance Directives: Yes Advance Directives on File: Yes Advance Directives Date on File: 03/18/23 service: No Current occupational status: employed Current occupational exposures/hazards: No Cognitive needs: No Hearing needs: No Vision needs: Yes Meds Allergies Allergy/AdvReac Type Severity Reaction Status Date / Time cat dander Allergy Intermediate Runny Verified 04/12/23 12:07 Nose, sneezing dog dander Allergy Intermediate Runny Verified 04/12/23 12:07 Nose, sneezing seasonal allergies Allergy Unknown Unknown Uncoded 04/11/23 15:31 Seasonal IC Allergy Unknown Unknown Uncoded 04/11/23 15:31 Active Medications: Current Medications Sodium Chloride (Ns) 1,000 mls @ 999 mls/hr IV .Q1H1M RAFAELA Stop: 04/12/23 16:00 Last Admin: 04/12/23 15:04 Dose: 999 mls/hr Home Medications Medication Instructions Recorded Confirmed Last Taken Type albuterol sulfate 90 mcg/actuation 2 puff inhalation Q6H PRN 01/26/21 04/11/23 Unknown History aerosol inhaler (ProAir HFA) Shortness Of Breath Or Wheezing Physical Exam Vital Signs: Vital Signs: Last Vital Signs Temp 97.2 F 04/12/23 12:07 Pulse 62 04/12/23 12:52 Resp 18 04/12/23 12:07 BP 100/70 04/12/23 12:52 Pulse Ox 100 04/12/23 12:07 O2 Del Method Room Air 04/12/23 12:07 BMI result Body Mass Index 33.1 On exam, she is nontoxic and in surprisingly good spirits Pupils are equal, round and reactive Mucous membranes are moist She is in no acute respiratory distress Her abdomen is soft with mild epigastric tenderness on deep palpation. No rebound, rigidity nor guarding is noted. Incisions are clean, dry and intact with no evidence of any hernia or cellulitis Results Results Labs: Short CBC 04/12/23 Range/Units 12:33 WBC 3.2 L (4.8-10.8) X10*3/uL Hgb 14.2 (12.0-16.0) g/dl Hct 41.5 (37.0-47.0) % Plt Count 217 (160-400) X10*3/uL BMP 04/12/23 12:33 Sodium 143 Potassium 4.2 Chloride 103 Carbon Dioxide 27 BUN 7 L Creatinine 0.87 Calcium 9.6 Liver Function 04/12/23 Range/Units 12:33 Total Bilirubin 0.8 (0.0-1.0) mg/dL Direct Bilirubin 0.3 (0.0-0.5) mg/dL AST 29 (5-31) U/L ALT 30 (0-31) U/L Alkaline Phosphatase 43 (39-117) U/L Albumin 4.2 (3.5-5.0) g/dL Additional studies: Fluoro/UGI pending Assessment and Plan (1) Nausea & vomiting: Status: Acute (2) Orthostatic dizziness: Status: Acute (3) Hypotension: Qualifiers: Hypotension type: hypotension due to hypovolemia Qualified Code(s): I95.89 - Other hypotension; E86.1 - Hypovolemia Status: Acute (4) Constipation: Qualifiers: Constipation type: other constipation type Qualified Code(s): K59.09 - Other constipation Status: Acute (5) Localized papular rash: Status: Acute (6) S/P laparoscopic sleeve gastrectomy: Status: Acute Plan Will check upper GI Nausea and vomiting is temporarily tied to the antibiotics and I suspect these are the etiology for the patient's symptoms, however with her recent sleeve gastrectomy, she will be unable to hydrate p.o. efficiently or effectively. Recommended admission for hydration and patient's safety given her soft BP and ongoing nausea. Bariatric will admit the patient for overnight hydration and rechecking labs ADDENDUM [id number] I reviewed the upper GI report and the actual images. There is no evidence of stricture or leak to explain the patient's symptoms which leads credence to this being likely related to the antibiotics and drug related intolerance. Regardless, the patient will require a overnight hydration, trending of electrolytes and medical control of her nausea and vomiting. Time Spent With Patient Time: Total time managing care of this patient today ____ minutes. Quality Stroke Does the patient have a stroke diagnosis?: No VTE Prior VTE?: No VTE Risk Level:: Medical - moderate - high VTE Device Contraindication: N/A - Device Ordered VTE Drug Contraindication: N/A - Med Ordered Procedures Date of Service Date of Service: 04/12/23
[2023-04-12 16:00] LABS: Appearance Urine Clear; Color Urine Yellow; Glucose Urine UA Negative (Negative); Leukocyte Esterase Urine Negative (Negative); Nitrite Urine Negative (Negative); Specific Gravity - Urine 1.025 (1.005-1.025); Urine Blood Negative (Negative); Urine Ketones 80 mg/dL (Negative); Urine Protein Trace mg/dL (Neg-Trace)
--- NOTE | 2023-04-12 16:01 | PC.NURSE ---
pt currently in radiology for GI study
[2023-04-12 16:02] LABS: UPreg QC Valid YES; Urine Pregnancy NEGATIVE (NEGATIVE)
--- NOTE | 2023-04-12 16:49 | PHA.MEDREC ---
Pharmacy Consult ? Medication Reconciliation Pharmacy has completed the medication reconciliation.
--- NOTE | 2023-04-12 16:52 | PC.NURSE ---
pt returned from rad study- informed of plan to admit for further management by bariatric team. no complaints of nausea/pain at this time, call alston within reach WC[facility]
[2023-04-12] MEDS: Lactated Ringers 1,000 ML 125 ML IVCONT (17:09)
--- NOTE | 2023-04-12 17:39 | PC.NURSE ---
report called to [facility]
[2023-04-12 19:09] LABS: Magnesium 1.6 mg/dL (1.6-2.6); Phosphorus 2.6 mg/dL (2.7-4.5)
[2023-04-12] MEDS: Famotidine/PF 20 MG/2 ML VIAL IVPUSH (21:31)
[2023-04-12] MEDS: Sodium,Potassium Phosphates POWD.PACK 1 PACKET PO (21:31)
[2023-04-12] MEDS: Magnesium Sulfate/D5W 1 GM/100 ML PIGGYBACK IV (22:14)
[2023-04-13] MEDS: Lactated Ringers 1,000 ML 125 ML IVCONT ×2 (01:30→09:23)
[2023-04-13] MEDS: ondansetron HCL 4 MG/2 ML VIAL IVPUSH (01:39)
[2023-04-13 03:44] VITALS: BP 90/52; PULSE 52; RESP 16; TEMP 36.1; O2SAT 97
[2023-04-13 04:31] VITALS: BP 94/56
[2023-04-13 06:31] LABS: Hematocrit 35.5 % (37.0-47.0); Hemoglobin 12.3 g/dl (12.0-16.0)
--- NOTE | 2023-04-13 07:17 | P.PNGS_ITS ---
Subjective Subjective Date of Service: 04/13/23 Patient reports: feels better and tolerating liquids well Interval history: The patient reports that she is better than when she was admitted last night but is still having low-grade nausea. She denies any dysphagia, odynophagia, hematemesis, regurgitation. There are no symptoms of esophageal candidiasis described by the patient. She otherwise denies new symptoms of chest pain, difficulty breathing, shortness of breath. She denies any abdominal pain. The patient has not been taking an H2 miriam or a PPI since surgery since the rash was thought to be a drug reaction. Physical Exam Vital Signs: Vital Signs: Last Vital Signs Temp 97 F 04/13/23 03:44 Pulse 52 04/13/23 03:44 Resp 16 04/13/23 03:44 BP 94/56 L 04/13/23 04:31 Pulse Ox 97 04/13/23 03:44 O2 Del Method Room Air 04/13/23 03:44 BMI result Body Mass Index 33.1 On exam she is in good spirits and smiling She is nontoxic She is in no acute respiratory distress Sclera anicteric Abdomen is overweight and soft with no tenderness. No rebound, rigidity or guarding is noted. Objective Data Active Medications Famotidine (Famotidine/Pf 20 Mg/2 Ml Vial) 20 mg IVPUSH BID COUNT INCLUDES THE [facility] Last Admin: 04/12/23 21:31 Dose: 20 mg Documented By: TONY Lactated Ringer's (Lr) 1,000 mls @ 125 mls/hr IVCONT .Q8H COUNT INCLUDES THE [facility] Last Admin: 04/13/23 01:30 Dose: 125 mls/hr Documented By: TONY Ondansetron HCl (Ondansetron Hcl 4 Mg/2 Ml Vial) 4 mg IVPUSH Q6H PRN PRN Reason: Nausea and Vomiting Last Admin: 04/13/23 01:39 Dose: 4 mg Documented By: TONY Ondansetron HCl (Ondansetron Odt 4 Mg Tab.Rapdis) 4 mg TRANSLINGU Q6H PRN PRN Reason: Nausea and Vomiting Pharmacy Consult (Consult Rx Perform Med Rec) 1 each MISCELLANE ONCE PRN PRN Reason: Consult order Sodium Chloride (0.9 % Sodium Chloride Flush 3 Ml Syringe) 3 ml IVFLUSH QSHIFT COUNT INCLUDES THE [facility] Last Admin: 04/13/23 00:03 Dose: Not Given Documented By: TONY Non-Admin Reason: IV Running Labs 04/13/23 05:29 04/12/23 12:33 Labs: Laboratory Results - last 24 hr 04/12/23 04/12/23 04/12/23 12:33 12:33 12:33 MCV 90.0 MCH 30.8 MCHC 34.2 RDW 12.6 Plt Count 217 MPV 11.3 Immature Gran % (Auto) 0.3 Neut % (Auto) 48.9 Lymph % (Auto) 36.8 [place] % (Auto) 10.8 Eos % (Auto) 2.2 Baso % (Auto) 1.0 Lymph # (Auto) 1.2 [place] # (Auto) 0.3 Eos # (Auto) 0.1 Baso # (Auto) 0.0 Abs Immat Gran (auto) 0.01 Absolute Neuts (auto) 1.5 L Absolute Nucleated RBC 0.000 Nucleated RBC % (auto) 0.0 Anion Gap 17 Estim Creat Clear Calc 99.3 Estimated GFR > 60 Random Glucose 80 Calcium 9.6 Phosphorus Magnesium 1.8 Total Bilirubin 0.8 Direct Bilirubin 0.3 AST 29 ALT 30 Alkaline Phosphatase 43 Troponin I High Sens < 2.7 Total Protein 7.1 Albumin 4.2 Lipase 22 Urine Color Urine Appearance Urine pH Ur Specific [place] Urine Protein Urine Glucose (UA) Urine Ketones Urine Blood Urine Nitrite Ur Leukocyte Esterase Urine Test 04/12/23 04/12/23 04/12/23 15:22 15:22 18:32 MCV MCH MCHC RDW Plt Count MPV Immature Gran % (Auto) Neut % (Auto) Lymph % (Auto) [place] % (Auto) Eos % (Auto) Baso % (Auto) Lymph # (Auto) [place] # (Auto) Eos # (Auto) Baso # (Auto) Abs Immat Gran (auto) Absolute Neuts (auto) Absolute Nucleated RBC Nucleated RBC % (auto) Anion Gap Estim Creat Clear Calc Estimated GFR Random Glucose Calcium Phosphorus 2.6 L Magnesium 1.6 Total Bilirubin Direct Bilirubin AST ALT Alkaline Phosphatase Troponin I High Sens Total Protein Albumin Lipase Urine Color Yellow Urine Appearance Clear Urine pH 6.0 Ur Specific [place] 1.025 Urine Protein Trace Urine Glucose (UA) Negative Urine Ketones 80 Urine Blood Negative Urine Nitrite Negative Ur Leukocyte Esterase Negative Urine Test NEGATIVE 04/13/2023 chemistries: BUN 3, callus, Mag, phos normal. Electrolytes within normal parameters. Procedures Date of Service Date of Service: 04/13/23 Progress Note: A&P Assessment and plan (1) Localized papular rash: Status: Acute (2) Nausea & vomiting: Status: Acute (3) Hypotension: Status: Acute (4) Constipation: Status: Acute (5) S/P laparoscopic sleeve gastrectomy: Status: Acute (6) Rash and nonspecific skin eruption: Status: Acute (7) Orthostatic dizziness: Status: Acute Plan The patient has orthostasis is improved with hydration, now we need to better manage her nausea. Stop Reglan and IV Zofran and transition to p.o./sublingual ondansetron. Electrolytes are within normal parameters, but the patient's BUN of 3 is likely a mix of dilution and poor p.o. intake. The patient's symptoms are likely the result of nausea/gastritis from doxycyclin e, being off of any gastric prophylactic agents such as Protonix, H2 miriam or Carafate elixir; no stricture or acute surgical pathology is identified on upper GI or clinical history. Advanced to bariatric phase 2 diet And H2 miriam and resume Protonix and Carafate Will reassess later this morning for possible discharge. Will DC PO antibiotics. Time Spent With Patient Time: Total time managing care of this patient today ____ minutes. Quality Stroke Does the patient have a stroke diagnosis?: No VTE Prior VTE?: No VTE Risk Level:: Medical - moderate - high VTE Device Contraindication: N/A - Device Ordered VTE Drug Contraindication: N/A - Med Ordered
[2023-04-13 07:32] VITALS: BP 110/64; PULSE 54; RESP 16; TEMP 36.4; O2SAT 97
[2023-04-13 07:32] LABS: Anion Gap 14 (12-20); Blood Urea Nitrogen 3 mg/dL (9-16); Calcium 8.5 mg/dL (8.4-10.2); Carbon Dioxide 26 mmol/L (22-29); Chloride 105 mmol/L (96-108); Creatinine Clr Calc Pharmacy 127.1; Estimated Glomerular Filt Rate > 60; Glucose Random 73 mg/dL (60-115); Magnesium 1.8 mg/dL (1.6-2.6); Phosphorus 3.5 mg/dL (2.7-4.5); Potassium 3.5 mmol/L (3.3-5.1); Sodium 141 mmol/L (135-145)
--- NOTE | 2023-04-13 09:17 | MHC.CM.PN ---
PATIENT LIVES WITH HER FAMILY. NO DME OR [facility]NA SERVICES HCP IS ON FILE AND VALIDATED. PLAN WILL BE ADVANCE TO PHASE 2 DIET- IF TOLERATES, THEN DC HOME -SELF CARE RN AWARE OF PLAN
[2023-04-13] MEDS: Famotidine/PF 20 MG/2 ML VIAL IVPUSH (10:40)
[2023-04-13] MEDS: Sucralfate Oral Suspension 1 GM/10 ML ORAL.SUSP PO ×2 (11:40→15:40)
[2023-04-13 15:06] VITALS: BP 102/56; PULSE 58; RESP 18; TEMP 36.2; O2SAT 100
--- NOTE | 2023-04-13 15:58 | MHC.CM.PN ---
HOME - SELF CARE RN AWARE
--- NOTE | 2023-04-13 16:06 | PM.DS ---
DS: Providers Provider Date of Service: 04/13/23 Date of admission: 04/12/23 16:39 Primary care physician: Kyle Zuniga PA-C DS: Diagnosis Discharge Diagnosis (1) Localized papular rash: Status: Acute (2) Nausea & vomiting: Status: Acute (3) Hypotension: Status: Acute (4) Constipation: Status: Acute (5) S/P laparoscopic sleeve gastrectomy: Status: Acute (6) Rash and nonspecific skin eruption: Status: Acute (7) Orthostatic dizziness: Status: Acute DS: Summary Hospital Course Hospital Course: P for full details. Briefly, this 28-year-old woman underwent a laparoscopic sleeve gastrectomy several weeks ago and then developed a rash, possibly due to medication. The medication, Protonix, was stopped, and when the rash progressed, she was started on doxycycline which caused nausea and vomiting. She reported to the emergency department and the medication was switched but she still had ongoing nausea and vomiting. On presenting to the emergency department yesterday, she had soft blood pressures in spite of hydration was admitted for overnight hydration and electrolyte replacement. By the day of discharge the next day, the patient was tolerating bariatric stage II, and discharged on an H2 miriam with outpatient follow-up. Overall condition at the time of discharge is improved. Time Spent with Patient Time attestation: Total time managing care of this patient today ____ minutes. Discharge coordination time: Greater than 30 minutes Quality: Safe Use of Opioids Does Pt have an Active Cancer Diagnosis on the Problem List?: No Quality: Stroke Does the patient have a stroke diagnosis?: No Physical Exam Vital Signs: Vital Signs: Last Vital Signs Temp 97.2 F 04/13/23 15:06 Pulse 58 04/13/23 15:06 Resp 18 04/13/23 15:06 BP 102/56 L 04/13/23 15:06 Pulse Ox 100 04/13/23 15:06 O2 Del Method Room Air 04/13/23 15:06 BMI result Body Mass Index 33.1 DS: Data Data Completed and Pending Completed studies during hospitalization [Text1]: Procedures Excision of Stomach, Percutaneous Endoscopic Approach, Vertical (03/16/23) Labs on day of discharge: Laboratory Results - last 24 hr 04/12/23 04/13/23 04/13/23 18:32 05:29 06:56 Hgb 12.3 Hct 35.5 L Sodium 141 Potassium 3.5 Chloride 105 Carbon Dioxide 26 Anion Gap 14 BUN 3 L Creatinine 0.68 Estim Creat Clear Calc 127.1 Estimated GFR > 60 Random Glucose 73 Calcium 8.5 D Phosphorus 2.6 L 3.5 Magnesium 1.6 1.8 Discharge Plan Discharge Anticipated Discharge Date/Time: 04/13/23 14:02 Patient Disposition: Home, Self-Care Discharge Diagnosis: nausea, dehydration Referrals: Kyle Zuniga PA-C [Primary Care Provider] - 1 Week Discharge Medications: Continued ondansetron 4 mg tablet,disintegrating 4 mg PO Q6H PRN (Reason: Nausea And Vomiting) Discontinued clindamycin phosphate 1 % lotion 1 appl topical BID Qty: 60 1RF doxycycline hyclate 100 mg capsule 100 mg PO BID Qty: 60 0RF sulfamethoxazole-trimethoprim [Bactrim DS] 800-160 mg tablet 1 tab PO BID Qty: 14 0RF No Action famotidine 40 mg tablet 40 mg PO DAILY Qty: 30 3RF Discharge Orders: Discharge Order (Routine); Ordered 04/13/23 Ordered By: Cathi Aparicio Activity on Discharge: No heavy lifting Stand Alone Forms: Patient Portal Discharge page Care Plan Goals: weight loss and control of nausea Health Concerns: obesity Plan of Treatment: weigh loss Assessment: stable, tolerating bariatric diet after sleeve gastrectomy
== END 2023-04-13 16:17 | disposition home or self-care (01) | DRG 422 ==
LOC: HO.ED 15:21 → HO.EDOVER 16:45 → HO.S3 16:46
PROVIDERS: Physician Assistant; Admitting Provider Surgery; Emergency Provider Emergency Medicine; PCP Physician Assistant; Visit Provider Surgery
DX: E86.0 Dehydration (principal); E86.1 Hypovolemia; I95.89 Other hypotension; E28.2 Polycystic ovarian syndrome; R11.2 Nausea with vomiting, unspecified; L27.0 Generalized skin eruption due to drugs and medicaments taken internally; T50.905A Adverse effect of unspecified drugs, medicaments and biological substances, initial encounter; Z98.84 Bariatric surgery status; Z79.899 Other long term (current) drug therapy
CPT/HCPCS: 36415; 74240; 80048; 80076; 81003; 81025; 83690; 83735; 84100; 84484; 85014; 85018; 85025; 93005; 99221; 99285; J2405; J3475

== ENCOUNTER → 2023-04-19 13:30 | Outpatient (BNVA) | payer OTHER, SELFPAY | PROVIDERS: PCP Physician Assistant; Visit Provider Counselor Mental Health ==

== ENCOUNTER → 2023-04-20 11:00 | Outpatient (BNVA) | payer OTHER, SELFPAY | PROVIDERS: PCP Physician Assistant; Visit Provider Physician Assistant Surgical | DX: E66.9 Obesity, unspecified (principal); Z98.84 Bariatric surgery status; Z68.32 Body mass index [BMI] 32.0-32.9, adult | CPT/HCPCS: 99212 ==

== ENCOUNTER → 2023-05-06 10:23 | Outpatient (BNVA) | payer OTHER, SELFPAY | PROVIDERS: PCP Physician Assistant; Visit Provider Dietitian, Registered | DX: E66.9 Obesity, unspecified (principal); Z68.31 Body mass index [BMI] 31.0-31.9, adult | CPT/HCPCS: 97803 ==

== ENCOUNTER 2023-05-20 11:08 | Outpatient (AMB) | payer OTHER, SELFPAY ==
--- NOTE | 2023-05-20 10:03 | A.OFFVIS_ITS ---
Intake VS Expanded 05/20/23 10:08 Height 5 ft 3 in Weight 175 lb 9.6 oz BMI 31.1 Intake Visit Reasons: VIDEO PO LSG 03/16/23 Electrical Technology Instructor Required: No Allergies cat dander Allergy (Intermediate, Verified 04/20/23 11:08) Runny Nose, sneezing dog dander Allergy (Intermediate, Verified 04/20/23 11:08) Runny Nose, sneezing seasonal allergies Allergy (Unknown, Uncoded 04/11/23 15:31) Unknown Seasonal IC Allergy (Unknown, Uncoded 04/11/23 15:31) Unknown Medication List - Last Reconciled 05/20/23 by TABITHA Bean famotidine 40 mg PO DAILY HPI HPI Comments History of Present Illness Details This?a?28?yo female who is s/p LSG without hiatal hernia repair on?03/16/[address] Escalera. Presents for 2 month post op visit. Weight today is 175.6 pounds, with a BMI of 31.1. There has been a 63.2 pound weight loss,(initial weight 238.8 pounds) since starting the program on 12/29/22 reflecting a 26.4% total body weight loss and a weight loss of 29.4 pounds since surgery (operative weight 205 pounds) reflecting a 14.3% TBWL since surgery. No complaints of nausea, emesis, abdominal pain or reflux. Reports infrequent but normal bowel movements every 2 days and uses stool softeners regularly. She feels as though she is much better at this time. She had trouble for the first month but now she is much better. Present meal plan includes: Breakfast:? Orgain 2 scoop w 8 oz almond milk or Ensure high protein sm meal chicken or 1-2 shrimp and cooked carrots another shake another 1/2 yogurt or fruit Vitamins:? Bariatric fusion soft chew, taking 2 per day +1 calcium soft chew - adequate Exercise routine includes: walking on the treadmill 30-45 min, 150-200 calories, weight training [facility] Medical History Constipation Localized papular rash Morbid obesity PCOS (polycystic ovarian syndrome) Rash and nonspecific skin eruption Seasonal allergies Surgical History History of bilateral carpal tunnel release History of section History of gastric surgery Family History Father Diabetes Mother Asthma Brother No problems noted. Brother No problems noted. Brother No problems noted. Sister No problems noted. Son No problems noted. Family/Other Substance use disorder Social History Household Members: Family Housing: House Are you a primary clinical care coordinator to a significant other at home: Yes (8 + 15 yr old) Do you presently have visiting nurse or other home services: No Alcohol intake: never Patient Tobacco Use Status: Never used Tobacco e-Cigarette/Vaping Use: Never Used Second Hand Smoke Exposure: No Advance Directives Date on File: 03/18/23 service: No Current occupational status: employed Current occupational exposures/hazards: No Cognitive needs: No Hearing needs: No Vision needs: Yes Assessment & Plan Assessment & Plan (1) Obesity (BMI 30-39.9): Code(s): E66.9 - Obesity, unspecified Plan: Change meal plan to Orgain 2 scoops x s meal 6 forks/6 forks Increase exercise to goal 300 tiana by incr speed and alt bike and elliptical Weight training before cardio rtc 1 month Medications: Discontinued ondansetron 4 mg PO Q6H 20 tabs 0RF Coding Level of Care Code Global (84353) Diagnoses Obesity (BMI 30-39.9) E66.9
[2023-05-20 10:08] VITALS: BMI 31.1
== END 2023-05-20 11:08 | disposition home or self-care (01) ==
LOC: HO.HBS 11:08
PROVIDERS: PCP Physician Assistant; Visit Provider Physician Assistant Surgical
DX: E66.9 Obesity, unspecified (principal); Z68.31 Body mass index [BMI] 31.0-31.9, adult; Z90.3 Acquired absence of stomach [part of]; Z98.84 Bariatric surgery status
CPT/HCPCS: 99024

== ENCOUNTER → 2023-05-20 11:08 | Outpatient (BNVA) | payer OTHER, SELFPAY | PROVIDERS: PCP Physician Assistant; Visit Provider Physician Assistant Surgical ==

== ENCOUNTER 2023-07-18 13:22 | Outpatient (AMB) | payer OTHER, SELFPAY ==
--- NOTE | 2023-07-18 13:24 | A.OFFVIS_ITS ---
Intake VS Expanded 07/18/23 13:32 Height 5 ft 3 in Weight 154 lb 9.6 oz BMI 27.4 BP 116/59 L Blood Pressure Location Rt brachial Blood Pressure Position Sitting Pulse 72 Pulse Source Pulse Oximeter Temp 97.5 F Temperature Source Temporal Artery Scan Pulse Oximetry 99 Oxygen Delivery Method Room Air Body Fat 40.6 Body Fat Percentage 26.2 Free Fat Mass 114.0 Muscle Mass 108.2 Visceral Mass 3.0 Water Mass 82.0 BMR 1,551 Intake Visit Reasons: (ov) PO LSG 03/16/23 Merchant Seaman Required: No Allergies cat dander Allergy (Intermediate, Verified 07/18/23 13:35) Runny Nose, sneezing dog dander Allergy (Intermediate, Verified 07/18/23 13:35) Runny Nose, sneezing seasonal allergies Allergy (Unknown, Uncoded 04/11/23 15:31) Unknown Seasonal IC Allergy (Unknown, Uncoded 04/11/23 15:31) Unknown Medication List - Last Reconciled 07/18/23 by TABITHA Bean [bariatric fusion and tiana+D PO] HPI HPI Comments History of Present Illness Details This?a?28?yo female who is s/p LSG without hiatal hernia repair on?03/16/[address] Escalera. Presents for 4 month post op visit. Weight today is 154.6 pounds, with a BMI of 27.4. There has been a 84.2 pound weight loss,(initial weight 238.8 pounds) since starting the program on 12/29/22 reflecting a 35.2% total body weight loss and a weight loss of 50.4 pounds since surgery (operative weight 205 pounds) reflecting a 24.5% TBWL since surgery. No complaints of nausea, emesis, abdominal pain or reflux. Reports infrequent but normal bowel movements every 2 days and uses stool softeners regularly. She feels as though she is much better at this time. She feels as though her energy is great. Present meal plan includes: Breakfast:? fruit or skip sm meal 6 forks/6 forks another shake another 1/2 yogurt or fruit Drinking 48 oz water Vitamins:? Bariatric fusion soft chew, taking 2 per day +1 calcium soft chew - adequate Exercise routine includes: walking on the treadmill 30-45 min, 250calories, weight training 5-6 days per week PFSH Medical History Constipation Localized papular rash Rash and nonspecific skin eruption Seasonal allergies PCOS (polycystic ovarian syndrome) Morbid obesity Surgical History History of gastric surgery History of section History of bilateral carpal tunnel release Family History Father Diabetes Mother Asthma Brother No problems noted. Brother No problems noted. Brother No problems noted. Sister No problems noted. Son No problems noted. Family/Other Substance use disorder Social History Household Members: Family Housing: House Are you a primary direct support professional caregiver to a significant other at home: Yes (8 + 15 yr old) Do you presently have visiting nurse or other home services: No Alcohol intake: never Patient Tobacco Use Status: Never used Tobacco e-Cigarette/Vaping Use: Never Used Second Hand Smoke Exposure: No Advance Directives Date on File: 03/18/23 service: No Current occupational status: employed Current occupational exposures/hazards: No Cognitive needs: No Hearing needs: No Vision needs: Yes Review of Systems Const All systems reviewed & are unremarkable except as noted in HPI and below Physical Exam Vital Signs: Last Vital Signs Temp 97.5 F 07/18/23 13:32 Pulse 72 07/18/23 13:32 BP 116/59 L 07/18/23 13:32 Pulse Ox 99 07/18/23 13:32 Oxygen Delivery Method Room Air 07/18/23 13:32 BMI result Body Mass Index 27.4 Const General: healthy appearing and no acute distress Resp Effort & Inspection: normal respiratory effort Auscultation: clear to auscultation bilaterally Cardio Rate: regular rate Rhythm: regular rhythm GI Auscultation: normal bowel sounds Extrem General: Yes normal to inspection Assessment & Plan Assessment & Plan (1) Overweight (BMI 25.0-29.9): Code(s): E66.3 - Overweight Plan: Continue meal plan with one Premier RTD split in 2 doses, meal 6 forks/6 forks and yogurt. She finds this very satisfying. RTC 2 months for 6 month post op appt and check labs at that time. Coding Level of Care Code Est Pt Level 3 (48028) Diagnoses Overweight (BMI 25.0-29.9) E66.3
[2023-07-18 13:32] VITALS: BP 116/59; PULSE 72; TEMP 36.4; O2SAT 99; BMI 27.4
== END 2023-07-18 14:01 | disposition home or self-care (01) ==
PROVIDERS: PCP Physician Assistant; Visit Provider Physician Assistant Surgical
DX: E66.3 Overweight (principal); Z68.24 Body mass index [BMI] 24.0-24.9, adult
CPT/HCPCS: 99213

== ENCOUNTER → 2023-07-18 13:22 | Outpatient (BNVA) | payer OTHER, SELFPAY | PROVIDERS: PCP Physician Assistant; Visit Provider Physician Assistant Surgical | DX: E66.3 Overweight (principal); Z68.27 Body mass index [BMI] 27.0-27.9, adult | CPT/HCPCS: 99212 ==

== ENCOUNTER 2023-08-01 13:02 | Emergency (ER) | payer OTHER, SELFPAY ==
--- NOTE | ~2023-08-01 | US_ITS ---
EXAMINATION: US ABDOMEN LIMITED CLINICAL INFORMATION: Right upper quadrant pain. COMPARISON: 02/10/2023 and 08/06/2021 TECHNIQUE: Real-time imaging of the right upper quadrant abdominal viscera. FINDINGS: PANCREAS: Tail obscured. LIVER: The liver is normal in size. The liver contour is normal. Parenchymal echogenicity is normal. No focal hepatic lesion. There is no intrahepatic biliary duct dilatation seen. GALLBLADDER: The gallbladder is physiologically distended without evidence of stones, sludge, polyps, wall thickening or pericholecystic fluid. COMMON BILE DUCT: Normal in caliber measuring 0.3 cm in diameter. RIGHT KIDNEY: No hydronephrosis. No renal calculi or focal parenchymal lesions. The kidney measures 11.1 cm in maximum dimension. FREE FLUID: None. US/US abdomen limited IMPRESSION: Unremarkable right upper quadrant ultrasound.
[2023-08-01 14:16] VITALS: BP 121/47; PULSE 50; RESP 17; TEMP 36.3; O2SAT 99; BMI 27.6
--- NOTE | 2023-08-01 14:19 | ED_ITS ---
HPI - General Adult General Chief complaint: Abdominal Pain Stated complaint: Abd lump/gastric sleeve done in february Related Data Home Medications Medication Instructions Recorded Confirmed bariatric fusion and tiana+D PO 07/18/23 07/18/23 Allergies Allergy/AdvReac Type Severity Reaction Status Date / Time cat dander Allergy Intermediate Runny Verified 07/18/23 13:35 Nose, sneezing dog dander Allergy Intermediate Runny Verified 07/18/23 13:35 Nose, sneezing seasonal allergies Allergy Unknown Unknown Uncoded 04/11/23 15:31 Seasonal IC Allergy Unknown Unknown Uncoded 04/11/23 15:31 [facility] Past Medical History Medical History Constipation Localized papular rash Rash and nonspecific skin eruption Seasonal allergies PCOS (polycystic ovarian syndrome) Morbid obesity Surgical History History of gastric surgery History of section History of bilateral carpal tunnel release Family History Family History Father Diabetes Mother Asthma Brother No problems noted. Brother No problems noted. Brother No problems noted. Sister No problems noted. Son No problems noted. Family/Other Substance use disorder Social History Social History Household Members: Family Housing: House Are you a primary adult care manager to a significant other at home: Yes (8 + 15 yr old) Do you presently have visiting nurse or other home services: No Alcohol intake: never Patient Tobacco Use Status: Never used Tobacco e-Cigarette/Vaping Use: Never Used Second Hand Smoke Exposure: No Advance Directives Date on File: 03/18/23 service: No Current occupational status: employed Current occupational exposures/hazards: No Cognitive needs: No Hearing needs: No Vision needs: Yes Physical Exam ED Vital Signs: BMI result Body Mass Index 27.6 Course Course Course Narrative: This is an RME: Additional HPI, ROS, PE not included below will be deferred to primary provider. This is a [id number], with a hx of sleeve gastrectomy in February 2023, presenting to the emergency department with a complaint of epigastric pain x 2 days. No nausea, vomiting, diarrhea, constipation. No fevers or chills. TTP in the right upper quadrant and epigastrium. Plan: Labs, US RUQ Pt eloped prior to full assessment and evaluation. Medical Decision Making Lab Data 08/01/23 15:48 08/01/23 15:48 Labs: Lab Results 08/01/23 Range/Units 15:48 WBC 5.7 (4.8-10.8) X10*3/uL RBC 3.75 L (4.20-5.50) X10*6/uL Hgb 12.1 (12.0-16.0) g/dl Hct 36.3 L (37.0-47.0) % MCV 96.8 (80.0-98.0) fL MCH 32.3 (27.0-33.0) pg MCHC 33.3 (31.0-35.0) g/dl RDW 11.9 (11.0-16.0) % Plt Count 290 D (160-400) X10*3/uL MPV 10.0 (9.4-12.3) fL Immature Gran % (Auto) 0.2 (0.0-0.4) % Neut % (Auto) 53.4 (45-73) % Lymph % (Auto) 37.2 (20-40) % [place] % (Auto) 6.3 (2-11) % Eos % (Auto) 2.4 (0-4) % Baso % (Auto) 0.5 (0-2) % Lymph # (Auto) 2.1 (1.2-4.9) X10*3/uL [place] # (Auto) 0.4 (0.1-1.2) X10*3/uL Eos # (Auto) 0.1 (0.0-0.4) X10*3/uL Baso # (Auto) 0.0 (0.0-0.2) X10*3/uL Abs Immat Gran (auto) 0.01 (0.00-0.03) X10*3/uL Absolute Neuts (auto) 3.1 (2.0-8.3) x10*3/uL Absolute Nucleated RBC 0.000 (0.0-0.012) X10*3/uL Nucleated RBC % (auto) 0.0 (0.0-0.2) /100WBC Sodium 142 (135-145) mmol/L Potassium 3.9 (3.3-5.1) mmol/L Chloride 109 H (96-108) mmol/L Carbon Dioxide 25 (22-29) mmol/L Anion Gap 12 (12-20) BUN 10 (9-16) mg/dL Creatinine 0.69 (0.5-1.4) mg/dL Estim Creat Clear Calc 114.3 Estimated GFR > 60 Random Glucose 84 (60-115) mg/dL Calcium 9.5 D (8.4-10.2) mg/dL Total Bilirubin 0.7 (0.0-1.0) mg/dL Direct Bilirubin 0.3 (0.0-0.5) mg/dL AST 13 (5-31) U/L ALT 11 (0-31) U/L Alkaline Phosphatase 32 L (39-117) U/L Total Protein 6.5 (6.5-8.0) g/dL Albumin 4.0 (3.5-5.0) g/dL Lipase 21 (8-78) U/L Urine Color Yellow Urine Appearance Clear Urine pH 5.5 (5.0-9.0) Ur Specific [place] 1.025 (1.005-1.025) Urine Protein Negative (Neg-Trace) mg/dL Urine Glucose (UA) Negative (Negative) mg/dL Urine Ketones Trace (Negative) mg/dL Urine Blood Trace H (Negative) Urine Nitrite Negative (Negative) Ur Leukocyte Esterase Negative (Negative) Urine RBC 0-2 (0-2) /HPF Urine WBC 0-5 (0-5) /HPF Ur Squamous Epith Cells 0-2 (0-2) /HPF Urine Bacteria None Seen (None Seen) Hyaline Casts 0-2 (0-2) /LPF Urine Test NEGATIVE (NEGATIVE) Discharge Plan Discharge Clinical Impression: Acute epigastric pain Patient Disposition: Left W/O Completing Treatment Prescriptions: No Action bariatric fusion and tiana+D PO Discharge Date/Time: 08/01/23 19:00
[2023-08-01 15:53] LABS: MANUAL DIFF FLAG NO
[2023-08-01 15:56] LABS: Appearance Urine Clear; Color Urine Yellow; Glucose Urine UA Negative (Negative); Leukocyte Esterase Urine Negative (Negative); Nitrite Urine Negative (Negative); PH 5.5 (5.0-9.0); Specific Gravity - Urine 1.025 (1.005-1.025); UMIC TRIGGER UACC YES; Urine Blood Trace (Negative); Urine Ketones Trace mg/dL (Negative); Urine Protein Negative (Neg-Trace)
[2023-08-01 15:57] LABS: UPreg QC Valid YES; Urine Pregnancy NEGATIVE (NEGATIVE)
[2023-08-01 15:59] LABS: Basophils Percent Auto 0.5 % (0-2); Eosinophils Absolute Auto 0.1 X10*3/uL (0.0-0.4); Eosinophils Percent Auto 2.4 % (0-4); Hematocrit 36.3 % (37.0-47.0); Hemoglobin 12.1 g/dl (12.0-16.0); Imm Gran Abs Auto 0.01 X10*3/uL (0.00-0.03); Imm Gran Pct Auto 0.2 % (0.0-0.4); Lymphocytes Absolute Auto 2.1 X10*3/uL (1.2-4.9); Lymphocytes Percent Auto 37.2 % (20-40); Mean Corpuscular HGB Conc 33.3 g/dl (31.0-35.0); Mean Corpuscular Hemoglobin 32.3 pg (27.0-33.0); Mean Corpuscular Volume 96.8 fL (80.0-98.0); Monocytes Absolute Auto 0.4 X10*3/uL (0.1-1.2); Monocytes Percent Auto 6.3 % (2-11); Neutrophils Absolute Auto 3.1 x10*3/uL (2.0-8.3); Neutrophils Percent Auto 53.4 % (45-73); Platelet Count 290 X10*3/uL (160-400); Red Blood Count 3.75 X10*6/uL (4.20-5.50); Red Cell Distribution Width 11.9 % (11.0-16.0); White Blood Count 5.7 X10*3/uL (4.8-10.8)
[2023-08-01 16:01] LABS: Bacteria Urine None Seen (None Seen); Hyaline Casts Urine 0-2 /LPF (0-2); RBC Urine 0-2 /HPF (0-2); Squamous Epithelial Cell Urine 0-2 /HPF (0-2); WBC Urine 0-5 /HPF (0-5)
[2023-08-01 16:09] LABS: Alanine Aminotransferase 11 U/L (0-31); Alkaline Phosphatase 32 U/L (39-117); Anion Gap 12 (12-20); Aspartate Amino Transferase 13 U/L (5-31); Bilirubin Direct 0.3 mg/dL (0.0-0.5); Bilirubin Total 0.7 mg/dL (0.0-1.0); Blood Urea Nitrogen 10 mg/dL (9-16); Calcium 9.5 mg/dL (8.4-10.2); Carbon Dioxide 25 mmol/L (22-29); Chloride 109 mmol/L (96-108); Creatinine Clr Calc Pharmacy 114.3; Estimated Glomerular Filt Rate > 60; Glucose Random 84 mg/dL (60-115); Lipase 21 U/L (8-78); Potassium 3.9 mmol/L (3.3-5.1); Sodium 142 mmol/L (135-145); Total Protein 6.5 g/dL (6.5-8.0)
== END 2023-08-01 19:00 | disposition left against medical advice (07) ==
PROVIDERS: Physician Assistant Medical; Emergency Provider Emergency Medicine; PCP Physician Assistant
DX: R10.13 Epigastric pain (principal); Z98.84 Bariatric surgery status; Z79.899 Other long term (current) drug therapy
CPT/HCPCS: 36415; 76705; 80048; 80076; 81001; 81025; 83690; 85025; 99282; 99284

== ENCOUNTER 2024-01-02 08:15 | Outpatient (AMB) | payer OTHER, SELFPAY ==
--- NOTE | 2024-01-02 08:16 | A.OFFPC_ITS ---
Vital Signs 3 01/02/24 08:17 Height 5 ft 3 in Weight 156 lb BMI 27.6 BP 102/60 Blood Pressure Location Lt brachial Position Sitting Intake Visit Reasons: PE Intake Note: Patient here for a physical exam Town Administrator Required: No Accompanied by: Family/Other Allergies cat dander Allergy (Intermediate, Verified 01/02/24 13:19) Runny Nose, sneezing dog dander Allergy (Intermediate, Verified 01/02/24 13:19) Runny Nose, sneezing seasonal allergies Allergy (Unknown, Uncoded 01/02/24 13:19) Unknown Seasonal IC Allergy (Unknown, Uncoded 01/02/24 13:19) Unknown Medication List - Last Reconciled 01/02/24 by Kyle Zuniga PA-C No Known Home Meds Tobacco use date assessed: 01/02/24 Dental Screening Dental Screen Date: 01/02/24 Did you have a dental visit in the last 12 months?: Yes Did you have a dental problem in the last 6 months where you did not have access to dental care?: No Was dental information given to patient?: Patient has dentist HPI PE 2 HPI0 Details Patient is a 28-year-old female here today for routine annual physical. Patient has a past medical history significant for anxiety and depression, status post bariatric sleeve surgery. She has lost a significant amount weight though unfortunately has been excess skin in abdomen She has found a surgeon to do an abdominal plasty in [facility] on his scheduled in May of 2024 to do abdominalplasty. 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 Brother No problems noted. Sister No problems noted. Son No problems noted. Family/Other Substance use disorder Social History Household Members: Family Housing: House Are you a primary care partner to a significant other at home: Yes (8 + 15 yr old) Do you presently have visiting nurse or other home services: No Alcohol intake: never Patient Tobacco Use Status: Never used Tobacco e-Cigarette/Vaping Use: Never Used Second Hand Smoke Exposure: No Advance Directives Date on File: 03/18/23 service: No Current occupational status: employed Current occupation: [employer] Current occupational exposures/hazards: No Cognitive needs: No Hearing needs: No Vision needs: Yes Questionnaire PHQ-9 Over the last 2 weeks, how often have you been bothered by any of the following problems? 1. Little interest or pleasure in doing things: not at all 2. Feeling down, depressed, or hopeless: not at all 3. Trouble falling or staying asleep, or sleeping too much: not at all 4. Feeling tired or having little energy: not at all 5. Poor appetite or overeating: not at all 6. Feeling bad about yourself - or that you are a failure or have let yourself or your family down: not at all 7. Trouble concentrating on things, such as reading the newspaper or watching television: not at all 8. Moving or speaking so slowly that other people could have noticed. Or the opposite - being so fidgety or restless that you have been moving around a lot more than usual: not at all 9. Thoughts that you would be better off or of hurting yourself in some way: not at all Total score: 0 Depression Screening Interpretation: Negative Depression Screening Done: Yes 64730 - PHQ-9 Billing: Yes Source: Developed by Drs. Avel Duncan, Jamaica Kam, Gabriel Whitman and colleagues, with an educational donald from [employer] Thrive Questionnaire Date Thrive assessed: 01/02/24 I am a: Patient What is your living situation today?: I have a steady place to live Within the past 12 months, did the food you bought not last and you didn't have the money to get more?: Never true Within the past 12 months, did you worry whether your food would run out before you got money to buy more?: Never true Do you have trouble paying for medicines?: No Do you have trouble getting transportation to medical appointments?: No Do you have trouble paying your heating and electricity bill?: No Do you have trouble taking care of your child, family member or friend?: No Do you have trouble with day-to-day activities such as bathing, preparing meals, shopping, managing finances, etc.?: No Are you currently unemployed and looking for a job?: No Are you interested in more education?: No Please select the resources that you would like help with: None Currently or been in a relationship where the following occur: no concerns reported THRIVE Score: 0 AUDIT C Alcohol Use Questionnaire (AUDIT-C) 1. How often do you have a drink containing alcohol?: Monthly or less 2. How many drinks containing alcohol do you have on a typical day when you are drinking?: 1 or 2 3. How often do you have six or more drinks on one occasion?: Never Total Score: 1 DANGELO-7 AMB Questionnaire DANGELO-7 Date DANGELO - 7 assessed: 01/02/24 Feeling nervous, anxious, or on edge: 0 = Not at all Not being able to stop or control worryin = Not at all Worrying too much about different things: 0 = Not at all Trouble relaxin = Not at all Being so restless that it is hard to sit still: 0 = Not at all Becoming easily annoyed or irritable: 0 = Not at all Feeling afraid as if something awful might happen: 0 = Not at all Total DANGELO-7 score (0-4 normal; 5-9 mild; 10-14 moderate; 15-21 severe): 0 Source: Developed by Drs. Avel Duncan, [place] Kam, Gabriel Whitman and colleagues, with an educational donald from [employer] DANGELO-7 Assessment Billing DANGELO-7 Assessment Tool: DANGELO-7 Assessment 50423 Review of Systems Const Denies body aches, Denies chills, Denies excessive sweating, Denies fatigue, Denies fever(s) and Denies headache(s) Eyes Denies blurry vision ENT Denies dysphagia, Denies vertigo, Denies dizziness, Denies headache(s), Denies hearing loss and Denies tinnitus Card Denies chest pain, Denies chest pain with activity, Denies syncope, Denies irregular heart rhythm and Denies dyspnea Resp Denies chest congestion, Denies cough, Denies hemoptysis, Denies dyspnea and Denies wheezing GI Denies abdominal pain, Denies melena, Denies hematochezia, Denies coffee ground emesis, Denies dysphagia, Denies diarrhea, Denies nausea and Denies vomiting Denies urinary frequency, Denies dysuria, Denies urinary hesitancy and Denies urinary urgency Musc Denies arthralgias, Denies limited range of motion, Denies muscle cramps and Denies muscle weakness Skin/Breast Denies rash and Denies skin ulcer Neuro Denies Abnormal speech present, Denies confusion, Denies vertigo, Denies dizziness, Denies syncope, Denies headache(s), Denies memory loss and Denies seizure-like activity Psych Denies anxiety, Denies confusion, Denies depression, Denies memory loss, Denies panic attacks and Denies paranoia Endo Denies excessive sweating, Denies fatigue, Denies flushing, Denies polydipsia and Denies polyuria Aller/Immun Denies wheezing Physical exam (Primary Care) Vital Signs: Last Vital Signs BP 102/60 01/02/24 08:17 BMI result Body Mass Index 27.6 Tobacco/Smoking Status: Tobacco use Status Tobacco use date assessed 01/02/24 01/02/24 08:23 Patient Tobacco Use Status Never used Tobacco 01/02/24 08:29 e-Cigarette/Vaping Use Never Used 01/02/24 08:29 PHQ-9: PHQ-9 Score PHQ-9: Total score 0 01/02/24 08:30 Depression Screening Interpretation: Negative Thrive Assessment: Date of Thrive Assessment Date Thrive assessed 01/02/24 01/02/24 08:23 Currently or been in a relationship where the following occur: no concerns reported Const General: cooperative, comfortable, no acute distress, alert and awake; No confusion Orientation/consciousness: oriented to person, oriented to place, patient oriented x3 and No confusion HENMT Head: Yes normocephalic Ears: external ears normal and TM's normal bilaterally Face and sinus: No sinus tenderness Mouth: Normal oral and palatal mucosa present and tongue normal Teeth and gingiva: dentition normal and gingiva normal Throat: Yes posterior oropharynx normal, Yes tonsils normal and Yes uvula midline Eyes Conjunctivae: conjunctivae normal Sclerae: sclerae normal Pupils: Equal, round and reactive pupils present EOM: EOMs intact bilaterally Direct Ophthalmoscopy: No no photophobia Neck Neck: Yes no lymphadenopathy, No tender and Yes no JVD Thyroid: Thyroid normal Carotids: no bruits Chest Chest palpation & inspection: no tenderness Resp Effort & Inspection: normal respiratory effort, no audible wheezes, not labored and no stridor Auscultation: no crackles, no rales, no rhonchi and no wheezes Cardio Jugular venous distension: no JVD Rate: regular rate, not bradycardic and not tachycardic Rhythm: regular rhythm Bruits: no carotid bruits Peripheral pulses: Peripheral pulses 2+ throughout GI Inspection: Yes normal to inspection, No abdominal wall ecchymosis and No visible herniation Palpation (GI): Soft to palpation, nontender, no guarding, not rigid and No hepatosplenomegaly present Auscultation: normoactive bowel sounds Abdomen image: 2 1. EXCESS ABDOMINAL SKIN NOTED General: Yes no CVA tenderness Back/Spine/Pelvis Back: no CVA tenderness and No back tenderness Cervical Spine: cervical ROM normal Thoracic/Lumbar Spine: thoracic and lumbar spine normal to inspection, straight leg raise negative bilaterally, No thoraco-lumbar ROM limited and No lumbar spinal tenderness Skin Lesions: no lesions Rashes: no rashes Wounds: no wounds Neuro General: oriented to person, oriented to place, patient oriented x3, CN's II-XI intact bilaterally and No confusion Cranial nerves: Yes Equal, round and reactive pupils present and Yes Normal accommodation reflex present Cognition (Neuro): normal cognition Speech: No Abnormal speech present Gait exam (Neuro): Normal gait present Motor exam (neuro): 5/5 motor strength present throughout Extrem Right upper extremity: full ROM; no cyanosis Left upper extremity: full ROM; no cyanosis Right lower extremity: no edema Left lower extremity: no edema Psych Appearance: grossly normal Mental Status: mental status grossly normal Affect: normal affect Attitude: cooperative Thought process: Normal thought process present Assessment and Plan Assessment & Plan (1) Annual physical exam: Code(s): Z00.00 - Encounter for general adult medical examination without abnormal findings (2) S/P laparoscopic sleeve gastrectomy: Code(s): Z98.84 - Bariatric surgery status Plan: Patient is doing very well after bariatric surgery. Has lost significant amount of weight and now BMI at 27. She unfortunately has been left with skin excess and has found a surgeon to do an abdominoplasty in May of 2024. (3) Pre-op evaluation: Code(s): Z01.818 - Encounter for other preprocedural examination Plan: As above will be getting abdominal plasty in May of 2024 my LALITA Rothman. Will send for preop labs and EKG. (4) Mild single current episode of major depressive disorder: Code(s): F32.0 - Major depressive disorder, single episode, mild Plan: HAS RESOLVED. Is not on any depression medication. Orders: Orders 2 Complete Blood Count no Diff Today Z98.84 - Bariatric surgery status ECG 12 lead EKG Today Z01.818 - Encounter for other preprocedural examination Comprehensive [place]. Panel Fast Today K76.0 - Fatty (change of) liver, not elsewhere classified Coding Level of Care Code Est Pt Prev Care 18-39y(01517) Diagnoses Annual physical exam Z00.00 S/P laparoscopic sleeve gastrectomy Z98.84 Pre-op evaluation Z01.818 Mild single current episode of major depressive disorder F32.0 Additional Codes DANGELO-7 Assessment Billing - DANGELO-7 Assessment Tool: DANGELO-7 Assessment [id number] ([id number])
[2024-01-02 08:17] VITALS: BP 102/60; BMI 27.6
== END 2024-01-02 08:39 | disposition home or self-care (01) ==
PROVIDERS: Visit Provider Physician Assistant
DX: Z00.00 Encounter for general adult medical examination without abnormal findings (principal); Z98.84 Bariatric surgery status; F32.0 Major depressive disorder, single episode, mild
CPT/HCPCS: 99395

== ENCOUNTER 2024-01-02 13:09 | Outpatient (AMB) | payer OTHER, SELFPAY ==
--- NOTE | 2024-01-02 13:11 | MHC.NURWM ---
Intake Intake Visit Reasons: (OV) PO LSG 03/16/23 Allergies cat dander Allergy (Intermediate, Verified 01/02/24 08:25) Runny Nose, sneezing dog dander Allergy (Intermediate, Verified 01/02/24 08:25) Runny Nose, sneezing seasonal allergies Allergy (Unknown, Uncoded 04/11/23 15:31) Unknown Seasonal IC Allergy (Unknown, Uncoded 04/11/23 15:31) Unknown Coding
[2024-01-02 13:16] VITALS: BP 115/56; PULSE 66; TEMP 36.3; O2SAT 100; BMI 27.1
--- NOTE | 2024-01-02 13:16 | A.OFFVIS_ITS ---
Intake VS Expanded 01/02/24 13:16 BP 115/56 L Blood Pressure Location Rt brachial Blood Pressure Position Sitting Pulse 66 Pulse Source Pulse Oximeter Temp 97.4 F Temperature Source Tympanic Pulse Oximetry 100 Oxygen Delivery Method Room Air Height 5 ft 3 in Weight 153 lb BMI 27.1 Body Fat % 23.8 Body Fat Mass 36.4 Fat Free Mass 116.4 Visceral Fat Rating 2.0 Body Water % 54.7 Body Water Mass 83.6 Muscle Mass/Score 110.4 Basal Metabolic Rate/Score 1,573 Intake Visit Reasons: (OV) PO LSG 03/16/23 Azure Architect Required: No Allergies cat dander Allergy (Intermediate, Verified 01/02/24 13:19) Runny Nose, sneezing dog dander Allergy (Intermediate, Verified 01/02/24 13:19) Runny Nose, sneezing seasonal allergies Allergy (Unknown, Uncoded 01/02/24 13:19) Unknown Seasonal IC Allergy (Unknown, Uncoded 01/02/24 13:19) Unknown Medication List - Last Reconciled 01/02/24 by TABITHA Bean [bariatric fusion PO DAILY] HPI HPI Comments History of Present Illness Details This?a?28?yo female who is s/p LSG without hiatal hernia repair on?03/16/[address] Escalera. Presents for 9 month post op visit. Weight today is 153 pounds, with a BMI of 27.1. There has been a 85.8 pound weight loss,(initial weight 238.8 pounds) since starting the program on 12/29/22 reflecting a 35.9% total body weight loss and a weight loss of 52 pounds since surgery (operative weight 205 pounds) reflecting a 25.3% TBWL since surgery. No complaints of nausea, emesis, abdominal pain or reflux. Reports infrequent but normal bowel movements every 2 days and uses stool softeners regularly. She has been very busy with school and missed her 6 month postop follow-up visit. She feels as though she needs to get back on track. 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 She had to drop out of school although she is now trying to reestablish. Not following a meal plan Present meal plan includes: Breakfast:? fruit or skip sm meal 6 forks/6 forks another shake, orgain another 1/2 yogurt or fruit Drinking 48 oz water Vitamins:? Bariatric fusion soft chew, taking 2 per day +1 calcium soft chew - adequate Exercise routine includes: walking on the treadmill 30-45 min, 3 x per week, 200 calories Any post op complications: None SANCHEZ: Never DM: Never HTN: Resolved Hyperlipidemia: Never GERD:?0-5 scale ??0 = no symptoms ??1 = symptoms noticeable but not bothersome 2 =symptoms bothersome but not daily ? 3 = symptoms bothersome and daily 4 = symptoms affect daily activities 5 = symptoms are incapacitating, unable to do daily activities ? How bad is the heartburn: 0 ? Heartburn while lying down: 0 ? Heartburn when standing up: 0 ? Heartburn after meals: 0 ? Does heartburn change your diet: 0 ? Does heartburn wake you up from sleep: 0 ? Do you have difficulty swallowin ? Do you have pain with swallowin ? If you take medicine for your reflux, does this affect your daily life: 0 Satisfaction with present condition - satisfied or not satisfied: Satisfied [facility], [facility] Medical History Constipation Localized papular rash Rash and nonspecific skin eruption Seasonal allergies PCOS (polycystic ovarian syndrome) Morbid obesity Surgical History History of gastric surgery History of section History of bilateral carpal tunnel release Family History Father Diabetes Mother Asthma Brother Heart attack, Onset Age: 45 Brother No problems noted. Brother No problems noted. Sister No problems noted. Son No problems noted. Family/Other Substance use disorder Social History (Updated 01/02/24 @ 08:29 by Kyle Zuniga PA-C) Household Members: Family Housing: House Are you a primary adult care provider to a significant other at home: Yes (8 + 15 yr old) Do you presently have visiting nurse or other home services: No Alcohol intake: never Patient Tobacco Use Status: Never used Tobacco e-Cigarette/Vaping Use: Never Used Second Hand Smoke Exposure: No Advance Directives Date on File: 03/18/23 service: No Current occupational status: employed Current occupation: [employer] Current occupational exposures/hazards: No Cognitive needs: No Hearing needs: No Vision needs: Yes Physical Exam Const General: cooperative and no acute distress Orientation/consciousness: patient oriented x3 Resp Effort & Inspection: normal respiratory effort Auscultation: clear to auscultation bilaterally Cardio Rate: regular rate Rhythm: regular rhythm GI Inspection: Yes normal to inspection and Yes incision (well healed) Palpation (GI): Soft to palpation and no masses Neuro General: patient oriented x3 Assessment & Plan Assessment & Plan (1) Overweight (BMI 25.0-29.9): Code(s): E66.3 - Overweight Plan: Get six-month postop labs. Change meal plan, using or gain powder, Shake 8-10, 2 scoops 1 pm Yogurt3 pm meal 6 forks of protein And 6 forks of vegetables 5-7 another shake with 1 scoop Fruit Increase water to 60 oz per day Return to the gym with a goal of 400 calories 5 days a week or 350 calories 6 days a week Orders: Orders Insulin Today E66.3 - Overweight, K76.0 - Fatty (change of) liver, not elsewhere classified, Z98.84 - Bariatric surgery status Complete Blood Count Auto Diff Today E66.3 - Overweight, K76.0 - Fatty (change of) liver, not elsewhere classified, Z98.84 - Bariatric surgery status IRON PROFILE Today E66.3 - Overweight, K76.0 - Fatty (change of) liver, not els ewhere classified, Z98.84 - Bariatric surgery status Vitamin B12 and Folate Today E66.3 - Overweight, K76.0 - Fatty (change of) liver, not elsewhere classified, Z98.84 - Bariatric surgery status C Reactive Protein Today E66.3 - Overweight, K76.0 - Fatty (change of) liver, not elsewhere classified, Z98.84 - Bariatric surgery status TSH reflex Free T4 Today E66.3 - Overweight, K76.0 - Fatty (change of) liver, not elsewhere classified, Z98.84 - Bariatric surgery status Ferritin Today E66.3 - Overweight, K76.0 - Fatty (change of) liver, not elsewhere classified, Z98.84 - Bariatric surgery status Vitamin D 25-OH Total Today E66.3 - Overweight, K76.0 - Fatty (change of) liver, not elsewhere classified, Z98.84 - Bariatric surgery status Basic Metabolic Panel Today E66.3 - Overweight, K76.0 - Fatty (change of) liver, not elsewhere classified, Z98.84 - Bariatric surgery status Hemoglobin A1c Today E66.3 - Overweight, K76.0 - Fatty (change of) liver, not elsewhere classified, Z98.84 - Bariatric surgery status Lipid Panel Today E66.3 - Overweight, K76.0 - Fatty (change of) liver, not elsewhere classified, Z98.84 - Bariatric surgery status Zinc Today E66.3 - Overweight, K76.0 - Fatty (change of) liver, not elsewhere classified, Z98.84 - Bariatric surgery status Vitamin B1 Today E66.3 - Overweight, K76.0 - Fatty (change of) liver, not elsewhere classified, Z98.84 - Bariatric surgery status Vitamin A Today E66.3 - Overweight, K76.0 - Fatty (change of) liver, not elsewhere classified, Z98.84 - Bariatric surgery status Coding Level of Care Code Est Pt Level 4 (15860) Diagnoses Overweight (BMI 25.0-29.9) E66.3
== END 2024-01-02 13:46 | disposition home or self-care (01) ==
PROVIDERS: PCP Physician Assistant; Visit Provider Physician Assistant Surgical
DX: E66.3 Overweight (principal); Z68.27 Body mass index [BMI] 27.0-27.9, adult; Z90.3 Acquired absence of stomach [part of]; Z98.84 Bariatric surgery status
CPT/HCPCS: 99214

== ENCOUNTER → 2024-01-02 13:09 | Outpatient (BNVA) | payer OTHER, SELFPAY | PROVIDERS: PCP Physician Assistant; Visit Provider Physician Assistant Surgical | DX: E66.3 Overweight (principal); Z68.27 Body mass index [BMI] 27.0-27.9, adult | CPT/HCPCS: 99212 ==

== ENCOUNTER 2024-02-03 09:17 | Outpatient (REF) | payer OTHER, SELFPAY ==
--- NOTE | 2024-02-03 09:22 | ECG_ITS ---
Test Reason : pre op Blood Pressure : / mmHG Vent. Rate : 055 BPM Atrial Rate : 055 BPM P-R Int : 156 ms QRS Dur : 078 ms QT Int : 412 ms P-R-T Axes : 053 078 065 degrees QTc Int : 394 ms Sinus bradycardia with sinus arrhythmia Otherwise normal ECG When compared to the previous EKG of No significant changes seen Referred By: Kyle Zuniga Electronically Signed By:NEEL HOGAN MD
[2024-02-03 09:41] LABS: MANUAL DIFF FLAG NO
[2024-02-03 10:41] LABS: Basophils Percent Auto 0.9 % (0-2); Eosinophils Absolute Auto 0.1 X10*3/uL (0.0-0.4); Eosinophils Percent Auto 2.8 % (0-4); Hematocrit 39.1 % (37.0-47.0); Hemoglobin 13.1 g/dl (12.0-16.0); Lymphocytes Absolute Auto 1.6 X10*3/uL (1.2-4.9); Lymphocytes Percent Auto 36.8 % (20-40); Mean Corpuscular HGB Conc 33.5 g/dl (31.0-35.0); Mean Corpuscular Volume 92.7 fL (80.0-98.0); Mean Platelet Volume 10.2 fL (9.4-12.3); Monocytes Absolute Auto 0.3 X10*3/uL (0.1-1.2); Monocytes Percent Auto 6.5 % (2-11); Neutrophils Absolute Auto 2.3 x10*3/uL (2.0-8.3); Platelet Count 311 X10*3/uL (160-400); Red Blood Count 4.22 X10*6/uL (4.20-5.50); Red Cell Distribution Width 11.8 % (11.0-16.0); White Blood Count 4.3 X10*3/uL (4.8-10.8)
[2024-02-03 10:57] LABS: Estimated Average Glucose 100 mg/dL; Hemoglobin A1c % 5.1 % (<6.0)
[2024-02-03 11:40] LABS: Anion Gap 11 (12-20); Blood Urea Nitrogen 12 mg/dL (9-16); C Reactive Protein < 0.10 mg/dL (< or = 0.50); Calcium 9.2 mg/dL (8.4-10.2); Carbon Dioxide 30 mmol/L (22-29); Chloride 105 mmol/L (96-108); Cholesterol 155 mg/dL (<200); Estimated Glomerular Filt Rate > 60; Glucose Random 83 mg/dL (60-115); HDL Cholesterol 51 mg/dL (>40); Iron 63 mcg/dL (30-160); LDL Cholesterol Calculated 93 mg/dL (<100); Percent Iron Saturation 22 % (15-50); Potassium 3.8 mmol/L (3.3-5.1); Sodium 142 mmol/L (135-145); Total Iron Binding Capacity 292 mcg/dL (228-428); Triglycerides 57 mg/dL (<150); Unsaturated Iron Binding 229 ug/dL
[2024-02-03 11:58] LABS: Ferritin 21 ng/mL (10-122); Insulin 6 uU/mL (2-29); Vitamin D 25-OH Total 34.3 ng/mL (>30)
[2024-02-03 12:35] LABS: Folate 14.3 ng/mL (> or = 4.0); Vitamin B12 713 pg/mL (200-900)
[2024-02-07 13:04] LABS: Zinc 64 mcg/dL (60-130)
[2024-02-08 03:14] LABS: Vitamin A 40 mcg/dL (38-98)
[2024-02-09 14:37] LABS: Vitamin B1 19 nmol/L (8-30)
== END 2024-02-03 09:18 | disposition home or self-care (01) ==
LOC: HO.XRAY 09:17
PROVIDERS: PCP Physician Assistant Surgical; Visit Provider Physician Assistant
DX: Z01.818 Encounter for other preprocedural examination (principal); E66.3 Overweight; K76.0 Fatty (change of) liver, not elsewhere classified; Z98.84 Bariatric surgery status
CPT/HCPCS: 36415; 80048; 80061; 82306; 82607; 82728; 82746; 83036; 83525; 83540; 84425; 84443; 84590; 84630; 85025; 86140; 93005

== ENCOUNTER → 2024-02-03 09:22 | Outpatient (BNV) | payer OTHER, SELFPAY | PROVIDERS: PCP Physician Assistant Surgical; Visit Provider Internal Medicine Cardiovascular Disease | DX: R00.1 Bradycardia, unspecified (principal) | CPT/HCPCS: 93010 ==

== ENCOUNTER 2024-02-06 13:20 | Outpatient (AMB) | payer OTHER, SELFPAY ==
--- NOTE | 2024-02-06 13:02 | A.OFFVIS_ITS ---
Intake VS Expanded 02/06/24 13:03 Height 5 ft 3 in Weight 154 lb 2 oz BMI 27.3 Body Fat % 21.8 Body Fat Mass 33.5 Fat Free Mass 120.4 Visceral Fat Rating 9 Body Water % 53.7 Body Water Mass 82.8 Muscle Mass/Score 113.4 Basal Metabolic Rate/Score 1,550 Intake Visit Reasons: (TV) PO LSG 03/16/23 Applications Manager Required: No Allergies cat dander Allergy (Intermediate, Verified 01/02/24 13:19) Runny Nose, sneezing dog dander Allergy (Intermediate, Verified 01/02/24 13:19) Runny Nose, sneezing seasonal allergies Allergy (Unknown, Uncoded 01/02/24 13:19) Unknown Seasonal IC Allergy (Unknown, Uncoded 01/02/24 13:19) Unknown Medication List - Last Reconciled 02/06/24 by TABITHA Bean [bariatric fusion PO DAILY] HPI HPI Comments History of Present Illness Details This?a?28?yo female who is s/p LSG without hiatal hernia repair on?03/16/[address] Escalera. Presents for 11 month post op visit. Weight today is 154.2 pounds, with a BMI of 27.3. There has been a 84.6 pound weight loss,(initial weight 238.8 pounds) since starting the program on 12/29/22 reflecting a 35.4% total body weight loss and a weight loss of 50.8 pounds since surgery (operative weight 205 pounds) reflecting a 24.7% TBWL since surgery. No complaints of nausea, emesis, abdominal pain or reflux. Reports infrequent but normal bowel movements every 2 days and uses stool softeners regularly. She has been very busy with school and missed her 6 month postop follow-up visit. She feels as though she needs to get back on track. 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 She had to drop out of school although she is now trying to reestablish. She does not have time to focus on herself. Following the meal plan for the morning Present meal plan includes: orgain powder, Shake 8-10, 2 scoops 1 pm Yogurt 3 pm meal 6 forks of protein and 6 forks of vegetables 5-7 another yogurt or Atkins bar Drinking 48 oz water Vitamins:? Bariatric fusion soft chew, taking 2 per day +1 calcium soft chew - adequate Exercise routine includes: previously walking on the treadmill 30-45 min, 3 x per week, 200 calories. None in the last several weeks due to being too busy [facility] Medical History Constipation Localized papular rash Rash and nonspecific skin eruption Seasonal allergies PCOS (polycystic ovarian syndrome) Morbid obesity Surgical History History of gastric surgery History of section History of bilateral carpal tunnel release Family History Father Diabetes Mother Asthma Brother Heart attack, Onset Age: 45 Brother No problems noted. Brother No problems noted. Sister No problems noted. Son No problems noted. 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 a significant other at home: Yes (8 + 15 yr old) Do you presently have visiting nurse or other home services: No Alcohol intake: never Patient Tobacco Use Status: Never used Tobacco e-Cigarette/Vaping Use: Never Used Second Hand Smoke Exposure: No Advance Directives Date on File: 03/18/23 service: No Current occupational status: employed Current occupation: [employer] Current occupational exposures/hazards: No Cognitive needs: No Hearing needs: No Vision needs: Yes Assessment & Plan Assessment & Plan (1) S/P laparoscopic sleeve gastrectomy: Code(s): Z98.84 - Bariatric surgery status Plan: Patient was encouraged to be sure to eat and drink throughout the day. She states that she has been very busy and frequently would skip meals or shakes. We discussed the importance of proper nutrition. She additionally states that she will begin to resume her exercise routine. She will text weekly and follow- up in the office for her 1 year appointment in approximately 1 month. Telehealth Telehealth Location of provider rendering services: practice address Location of patient: address on file Patient Identification confirmed using: Name, : Yes Telehealth method: voice only Patient verbally consented to treatment: Yes Patient verbally consented to billing insurance company: Yes Patient informed of any privacy concerns related to visit: Yes Minutes spent on Phone/Video with Pt.: 12 Coding Level of Care Code Tele Est Pt Level 3 (21556) Diagnoses S/P laparoscopic sleeve gastrectomy Z98.84 Time Spent (min) 18
[2024-02-06 13:03] VITALS: BMI 27.3
== END 2024-02-06 13:24 | disposition home or self-care (01) ==
LOC: HO.HBS 13:20
PROVIDERS: PCP Physician Assistant Surgical; Visit Provider Physician Assistant Surgical
DX: E66.3 Overweight (principal); Z68.27 Body mass index [BMI] 27.0-27.9, adult; Z90.3 Acquired absence of stomach [part of]; Z98.84 Bariatric surgery status
CPT/HCPCS: 99213

== ENCOUNTER → 2024-02-06 13:20 | Outpatient (BNVA) | payer OTHER, SELFPAY | PROVIDERS: PCP Physician Assistant Surgical; Visit Provider Physician Assistant Surgical | DX: E66.3 Overweight (principal); Z98.84 Bariatric surgery status; K76.0 Fatty (change of) liver, not elsewhere classified ==

== ENCOUNTER 2024-05-02 09:07 | Outpatient (AMB) | payer OTHER, SELFPAY ==
[2024-05-02 09:24] VITALS: BP 88/54; PULSE 82; RESP 17; O2SAT 100; BMI 28.2
--- NOTE | 2024-05-02 09:24 | A.OFFPC_ITS ---
Vital Signs 05/02/24 09:24 Height 5 ft 3 in Blood Pressure Location Lt brachial Position Sitting Pulse Source Pulse Oximeter Oxygen Delivery Method Room Air Intake Visit Reasons: follow up appt Human Resources Team Member Required: No Accompanied by: Self / Same As Patient Allergies cat dander Allergy (Intermediate, Verified 05/02/24 09:24) Runny Nose, sneezing dog dander Allergy (Intermediate, Verified 05/02/24 09:24) Runny Nose, sneezing seasonal allergies Allergy (Unknown, Uncoded 05/02/24 09:24) Unknown Seasonal IC Allergy (Unknown, Uncoded 05/02/24 09:24) Unknown Tobacco use date assessed: 01/02/24 Dental Screening Dental Screen Date: 01/02/24 [facility] Medical History Constipation Localized papular rash Rash and nonspecific skin eruption Seasonal allergies PCOS (polycystic ovarian syndrome) Morbid obesity Surgical History History of gastric surgery History of section History of bilateral carpal tunnel release Family History Father Diabetes Mother Asthma Brother Heart attack, Onset Age: 45 Brother No problems noted. Brother No problems noted. Sister No problems noted. Son No problems noted. Family/Other Substance use disorder Social History Household Members: Family Housing: House Are you a primary direct care specialist to a significant other at home: Yes (8 + 15 yr old) Do you presently have visiting nurse or other home services: No Alcohol intake: never Patient Tobacco Use Status: Never used Tobacco e-Cigarette/Vaping Use: Never Used Second Hand Smoke Exposure: No Advance Directives Date on File: 03/18/23 service: No Current occupational status: employed Current occupation: [employer] Current occupational exposures/hazards: No Cognitive needs: No Hearing needs: No Vision needs: Yes Questionnaire Thrive Questionnaire Date Thrive assessed: 01/02/24 DANGELO-7 AMB Questionnaire DANGELO-7 Date DANGELO - 7 assessed: 01/02/24 Source: Developed by Drs. Avel Duncan, [place]Gabriel Sanabria and colleagues, with an educational donald from [email or web address]. Physical exam (Primary Care) Tobacco/Smoking Status: Tobacco use Status Tobacco use date assessed 01/02/24 01/02/24 08:23 Patient Tobacco Use Status Never used Tobacco 01/02/24 08:29 e-Cigarette/Vaping Use Never Used 01/02/24 08:29 Thrive Assessment: Date of Thrive Assessment Date Thrive assessed 01/02/24 01/02/24 08:23 Coding
--- NOTE | 2024-05-02 09:44 | A.OFFPC_ITS ---
Vital Signs 05/02/24 09:24 Height 5 ft 3 in Weight 159 lb BMI 28.2 BP 88/54 L Blood Pressure Location Lt brachial Position Sitting Respiration 17 Pulse 82 Pulse Source Pulse Oximeter Pulse Oximetry (%) 100 Oxygen Delivery Method Room Air Intake Visit Reasons: PRE-OP Intake Note: Patient is here for a Pre-op for BBL combo, tummy combo, liposuction 360, and a breast lift (without implants). Labs, EKG, breast ultrasound, and chest X-rays are required. scheduled with Dr. Kraig Murray on 05/31/2024. Oxygen Tank Filler Required: No Accompanied by: Friend Allergies cat dander Allergy (Intermediate, Verified 05/02/24 09:56) Runny Nose, sneezing dog dander Allergy (Intermediate, Verified 05/02/24 09:56) Runny Nose, sneezing seasonal allergies Allergy (Unknown, Uncoded 05/02/24 09:56) Unknown Seasonal IC Allergy (Unknown, Uncoded 05/02/24 09:56) Unknown Medication List - Last Reconciled 05/02/24 by Kyle Zuniga PA-C [bariatric fusion PO DAILY] Tobacco use date assessed: 01/02/24 Dental Screening Dental Screen Date: 01/02/24 HPI PRE-OP HPI Details Patient is a 29-year-old female here today for preoperative evaluation. Patient is due for cosmetic body surgery in [facility]. She is due for presumed blood the stand breast augmentation. Patient has a past medical history significant for anxiety and depression, status post bariatric sleeve surgery. She has been in fairly good health. Does have chronic hypotension and has been asymptomatic. Otherwise she is followed by weight management program status post bariatric surgery in [facility] her weight and diet has been stable. [facility] Medical History Constipation Localized papular rash Rash and nonspecific skin eruption Seasonal allergies PCOS (polycystic ovarian syndrome) Morbid obesity Surgical History History of gastric surgery History of section History of bilateral carpal tunnel release Family History Father Diabetes Mother Asthma Brother Heart attack, Onset Age: 45 Brother No problems noted. Brother No problems noted. Sister No problems noted. Son No problems noted. Family/Other Substance use disorder Social History Household Members: Family Housing: House Are you a primary career development coordinator to a significant other at home: Yes (8 + 15 yr old) Do you presently have visiting nurse or other home services: No Alcohol intake: never Patient Tobacco Use Status: Never used Tobacco e-Cigarette/Vaping Use: Never Used Second Hand Smoke Exposure: No Advance Directives Date on File: 03/18/23 service: No Current occupational status: employed Current occupation: [employer] Current occupational exposures/hazards: No Cognitive needs: No Hearing needs: No Vision needs: Yes Questionnaire Thrive Questionnaire Date Thrive assessed: 01/02/24 DANGELO-7 AMB Questionnaire DANGELO-7 Date DANGELO - 7 assessed: 01/02/24 Source: Developed by Drs. Avel Duncan, [place] Kam, Gabriel Whitman and colleagues, with an educational donald from [employer]. Review of Systems Const Denies headache(s) Eyes Denies loss of vision ENT Denies vertigo, Denies dizziness, Denies headache(s) and Denies sore throat Card Denies chest pain, Denies leg edema and Denies lightheadedness Resp Denies cough, Denies hemoptysis and Denies wheezing GI Denies abdominal pain, Denies melena, Denies constipation, Denies diarrhea and Denies vomiting Denies urinary frequency, Denies dysuria and Denies urinary urgency Musc Denies arthralgias, Denies joint swelling, Denies numbness and Denies tingling Neuro Denies Abnormal speech present, Denies behavioral changes, Denies vertigo, Denies dizziness, Denies headache(s), Denies loss of vision, Denies memory loss, Denies numbness and Denies tingling Psych Denies anxiety, Denies behavioral changes, Denies depression, Denies memory loss and Denies panic attacks Tyler/Lymph Denies easy bleeding and Denies easy bruising Aller/Immun Denies wheezing Physical exam (Primary Care) Vital Signs: Last Vital Signs Pulse 82 05/02/24 09:24 Resp 17 05/02/24 09:24 BP 88/54 L 05/02/24 09:24 Pulse Ox 100 05/02/24 09:24 Oxygen Delivery Method Room Air 05/02/24 09:24 BMI result Body Mass Index 28.2 Tobacco/Smoking Status: Tobacco use Status Tobacco use date assessed 01/02/24 05/02/24 09:51 Patient Tobacco Use Status Never used Tobacco 05/02/24 09:51 e-Cigarette/Vaping Use Never Used 05/02/24 09:51 Thrive Assessment: Date of Thrive Assessment Date Thrive assessed 01/02/24 05/02/24 09:51 Const General: healthy appearing, no acute distress, alert and awake Nutritional Appearance: well nourished Orientation/consciousness: oriented to person, oriented to place and oriented to time HENMT Ears: TM's normal bilaterally General nose exam: Normal nasal mucous membranes and turbinates present Eyes Conjunctivae: conjunctivae normal Sclerae: sclerae normal Pupils: Equal, round and reactive pupils present Neck Neck: Yes no lymphadenopathy and Yes no JVD Thyroid: Thyroid normal Carotids: no bruits Resp Effort & Inspection: normal respiratory effort and not tachypneic Auscultation: no crackles, no rales, no rhonchi and no wheezes Cardio Rate: regular rate Rhythm: regular rhythm Heart sounds: no murmurs and normal S1 and S2 GI Palpation (GI): Soft to palpation, nontender, no hepatomegaly and no splenomegaly Auscultation: normal bowel sounds Skin General skin exam: no rashes or lesions noted and dry skin Neuro General: oriented to person, oriented to place and oriented to time Cranial nerves: Yes Equal, round and reactive pupils present Speech: No Abnormal speech present Gait exam (Neuro): Normal gait present Motor exam (neuro): no tremor noted Extrem Right upper extremity: full ROM Left upper extremity: full ROM Right lower extremity: full ROM; no edema Left lower extremity: full ROM; no edema Psych Mental Status: mental status grossly normal Speech and movement: Normal speech and movement present Affect: normal affect Attitude: cooperative Thought process: Normal thought process present Assessment and Plan Assessment & Plan (1) Pre-op evaluation: Code(s): Z01.818 - Encounter for other preprocedural examination Plan: Patient's most recent labs and EKG stable.. Patient is low cardiovascular risk for elective procedure. Orders: Orders Complete Blood Count no Diff 05/02/24 Z01.818 - Encounter for other preprocedural examination Comprehensive Met. Panel 05/02/24 Z01.818 - Encounter for other preprocedural examination HCG Quantitative 05/02/24 Z01.818 - Encounter for other preprocedural examination Prothrombin Time INR 05/02/24 Z01.818 - Encounter for other preprocedural examination ECG 12 lead EKG 05/02/24 Z01.818 - Encounter for other preprocedural examination US breast LT complete 05/02/24 N63.20 - Unspecified lump in the left breast, unspecified quadrant HIV Ab/Ag 05/02/24 Z11.3 - Encounter for screening for infections with a predominantly sexual mode of transmission, Z01.818 - Encounter for other preprocedural examination UA CC w/rflx Micro + Cult 05/02/24 R30.0 - Dysuria, Z01.818 - Encounter for other preprocedural examination XR chest 2V 05/02/24 Z01.818 - Encounter for other preprocedural examination US breast RT complete 05/02/24 N63.10 - Unspecified lump in the right breast, unspecified quadrant Coding Level of Care Code Est Pt Level 4 (74291) Diagnoses Pre-op evaluation Z.818
== END 2024-05-02 11:47 | disposition home or self-care (01) ==
PROVIDERS: PCP Physician Assistant; Visit Provider Physician Assistant
DX: Z01.818 Encounter for other preprocedural examination (principal)
CPT/HCPCS: 99214

== ENCOUNTER → 2024-05-02 10:16 | Outpatient (REF) | payer OTHER, SELFPAY ==
--- NOTE | 2024-05-02 10:19 | ECG_ITS ---
Test Reason : cp Blood Pressure : / mmHG Vent. Rate : 053 BPM Atrial Rate : 053 BPM P-R Int : 150 ms QRS Dur : 078 ms QT Int : 422 ms P-R-T Axes : 051 075 062 degrees QTc Int : 395 ms Sinus bradycardia with sinus arrhythmia Otherwise normal ECG When compared with ECG of 03-FEB-2024 09:25, No significant change was found Referred By: Kyle Zuniga Electronically Signed By:ILAN ARZOLA
[2024-05-02 10:56] LABS: Hematocrit 42.4 % (37.0-47.0); Hemoglobin 14.4 g/dl (12.0-16.0); Mean Corpuscular Hemoglobin 31.6 pg (27.0-33.0); Mean Platelet Volume 9.8 fL (9.4-12.3); Platelet Count 356 X10*3/uL (160-400); Red Blood Count 4.56 X10*6/uL (4.20-5.50); Red Cell Distribution Width 11.7 % (11.0-16.0); White Blood Count 5.2 X10*3/uL (4.8-10.8)
[2024-05-02 11:23] LABS: INTERNATIONAL NORM RATIO 1.1 (0.9-1.1); Prothrombin Time 12.8 SEC (11.1-13.3)
[2024-05-02 11:32] LABS: Alanine Aminotransferase 15 U/L (0-31); Albumin Level 4.9 g/dL (3.5-5.0); Alkaline Phosphatase 37 U/L (39-117); Anion Gap 11 (12-20); Aspartate Amino Transferase 18 U/L (5-31); Bilirubin Total 0.9 mg/dL (0.0-1.0); Blood Urea Nitrogen 12 mg/dL (9-16); Calcium 10.3 mg/dL (8.4-10.2); Carbon Dioxide 30 mmol/L (22-29); Chloride 104 mmol/L (96-108); Estimated Glomerular Filt Rate > 60; Glucose Random 90 mg/dL (60-115); Sodium 141 mmol/L (135-145); Total Protein 8.1 g/dL (6.5-8.0)
[2024-05-02 11:37] LABS: HCG Quantitative < 2 mIU/mL
[2024-05-02 12:29] LABS: Appearance Urine Clear; Color Urine Yellow; Glucose Urine UA Negative (Negative); Leukocyte Esterase Urine Negative (Negative); Nitrite Urine Negative (Negative); Specific Gravity - Urine >= 1.030 (1.005-1.025); Urine Blood Negative (Negative); Urine Ketones Negative (Negative); Urine Protein Negative (Neg-Trace)
[2024-05-02 13:47] LABS: HIV AB/AG Nonreactive (Nonreactive); HIV Num 1 0.06 S/CO (0.00-0.99)
== END ==
LOC: HO.CARD 10:16
PROVIDERS: PCP Physician Assistant; Visit Provider Physician Assistant
DX: Z01.818 Encounter for other preprocedural examination (principal); Z11.4 Encounter for screening for human immunodeficiency virus [HIV]; R30.0 Dysuria
CPT/HCPCS: 36415; 80053; 81003; 84702; 85027; 85610; 87389; 93005

== ENCOUNTER → 2024-05-02 10:19 | Outpatient (BNV) | payer OTHER, SELFPAY | PROVIDERS: PCP Physician Assistant; Visit Provider Internal Medicine | DX: R07.9 Chest pain, unspecified (principal) | CPT/HCPCS: 93010 ==

== ENCOUNTER 2024-05-15 10:11 | Outpatient (REF) | payer OTHER, SELFPAY ==
--- NOTE | ~2024-05-15 | XR_ITS ---
EXAMINATION: XR CHEST CLINICAL INFORMATION: Surgery clearance COMPARISON: None available. TECHNIQUE: 2 views of the chest were obtained. FINDINGS: No significant abnormality is noted involving the heart, lungs, mediastinum, bony thorax or soft tissues. XR/XR chest 2V IMPRESSION: Unremarkable examination.
== END 2024-05-15 10:12 | disposition home or self-care (01) ==
LOC: HO.XRAY 10:11
PROVIDERS: PCP Physician Assistant; Visit Provider Physician Assistant
DX: Z01.818 Encounter for other preprocedural examination (principal)
CPT/HCPCS: 71046

== ENCOUNTER → 2024-05-21 12:00 | Outpatient (BNV) | payer OTHER, SELFPAY | PROVIDERS: PCP Physician Assistant; Visit Provider Radiology Diagnostic Radiology | DX: N63.15 Unspecified lump in the right breast, overlapping quadrants (principal); N63.25 Unspecified lump in the left breast, overlapping quadrants | CPT/HCPCS: 76642 ==

== ENCOUNTER 2024-05-21 12:14 | Outpatient (REF) | payer OTHER, SELFPAY ==
--- NOTE | ~2024-05-21 | US_ITS ---
EXAMINATION: US DIAGNOSTIC ULTRASOUND BREAST, BILATERAL CLINICAL INFORMATION: 29-year-old female complaining of palpable abnormality right breast 12 o'clock axis, and left breast 3 o'clock axis. COMPARISON: None available. TECHNIQUE: Ultrasound of the bilateral breasts was performed with real-time aceves scale imaging and color Doppler. Attention was given to the left breast spanning the 1 o'clock to 4 o'clock axes, and the right breast spanning the 10 o'clock to 2 o'clock axes. FINDINGS: There is no focal suspicious finding. There is no solid mass, cystic abnormality, architectural abnormality, duct ectasia, or edema in the soft tissue planes. No sonographic correlate to the regions of palpable concern right breast 12 o'clock, and left breast 3 o'clock. Only heterogeneously dense tissue is seen. US/US breast BI limited mamm only IMPRESSION: No findings suspicious for malignancy in either breast. Palpable foci in both breasts show no sonographic correlate. Recommend clinical management. ASSESSMENT: BI-RADS 1: Negative RECOMMENDATION: Patient should be managed based on the clinical impression. Decision to proceed with biopsy should be based on clinical grounds and degree of clinical concern. This patient's information was entered into a reminder system with a target due date for their next mammogram. .
== END 2024-05-21 12:15 | disposition home or self-care (01) ==
LOC: HO.MAMMO 12:14
PROVIDERS: PCP Physician Assistant; Visit Provider Physician Assistant
DX: N63.15 Unspecified lump in the right breast, overlapping quadrants (principal); N63.25 Unspecified lump in the left breast, overlapping quadrants
CPT/HCPCS: 76642

== ENCOUNTER 2024-06-27 16:55 | Emergency (ER) | payer OTHER, SELFPAY ==
[2024-06-27 17:07] VITALS: BP 115/83; PULSE 94; RESP 19; TEMP 36.6; O2SAT 98; BMI 27.5
--- NOTE | 2024-06-27 17:08 | ED_ITS ---
HPI - General Adult General Chief complaint: Wound/Laceration Stated complaint: wound not healing s/p surgery a month ago Time Seen by Provider: 06/27/24 19:11 Source: patient, RN notes reviewed and old records reviewed Mode of arrival: ambulatory Limitations: no limitations History of Present Illness ED Provider: Torie ROJAS narrative: 29-year-old female presents for evaluation of a chronic wound to her left flank area. Patient reports that she had a ?mommy make over in [place] on May 29. This included a tummy tuck, breast augmentation, liposuction and [place] butt lift. She had drains on the bilateral flanks. These have been removed. She reports that the right flank healed well. The left flank has had a small piece of tissue visible from the inside that is black The patient reports this is very painful? when it gets wet it seems to come out more benign scared to pull it all the way out because it hurts. ? She reports that she was on a week's worth of antibiotics after her procedure She does not have any local follow-up Denies any fevers or chills The patient endorses lower back pain since the surgery She reports due to the [place] butt lift she is not allowed to sleep on her back and she is sleeping in a specialized chair which she thinks is contributing to her lower back pain bilaterally Related Data Home Medications ?Medication ?Instructions ?Recorded ?Confirmed bariatric fusion PO DAILY 01/02/24 05/02/24 Previous Rx's ?Medication ?Instructions ?Recorded cyclobenzaprine 10 mg tablet 10 mg PO TID PRN muscle spasm #20 06/27/24 tabs Allergies Allergy/AdvReac Type Severity Reaction Status Date / Time cat dander Allergy Intermediate Runny Verified 06/27/24 17:13 Nose, sneezing dog dander Allergy Intermediate Runny Verified 06/27/24 17:13 Nose, sneezing seasonal allergies Allergy Unknown Unknown Uncoded 06/27/24 17:13 Seasonal IC Allergy Unknown Unknown Uncoded 06/27/24 17:13 Review of Systems 2 Constitutional: Constitutional: Denies body ache(s), Denies chills and Denies fever(s) Cardiovascular: Cardiovascular: Denies chest pain Gastrointestinal: Gastrointestinal: Denies abdominal pain Musculoskeletal: Musculoskeletal: Reports back pain Integumentary/Breasts: Skin/Breast: Reports non-healing lesions, Denies erythema and Reports wounds PMFSH Past Medical History Medical History Constipation Localized papular rash Rash and nonspecific skin eruption Seasonal allergies PCOS (polycystic ovarian syndrome) Morbid obesity Surgical History History of gastric surgery History of section History of bilateral carpal tunnel release Family History Family History Father Diabetes Mother Asthma Brother Heart attack, Onset Age: 45 Brother No problems noted. Brother No problems noted. Sister No problems noted. Son No problems noted. Family/Other Substance use disorder Social History Social History Household Members: Family Housing: House Are you a primary caretaker to a significant other at home: Yes (8 + 15 yr old) Do you presently have visiting nurse or other home services: No Alcohol intake: never Patient Tobacco Use Status: Never used Tobacco e-Cigarette/Vaping Use: Never Used Second Hand Smoke Exposure: No Advance Directives: Yes Advance Directives on File: Yes Advance Directives Date on File: 03/18/23 Do you have a plan to hurt others: No Plan service: No Current occupational status: employed Current occupation: [employer] Current occupational exposures/hazards: No Cognitive needs: No Hearing needs: No Vision needs: Yes Physical Exam ED Vital Signs: Vital Signs - 24 hr 06/27/24 17:07 06/27/24 19:50 06/27/24 20:07 Temperature 98 F 98.2 F 98.2 F Pulse Rate 94 61 61 Respiratory Rate 19 18 18 Blood Pressure 115/83 122/75 122/75 Pulse Oximetry 98 100 100 Oxygen Delivery Method Room Air Room Air Room Air BMI result Body Mass Index 27.5 Const General: healthy appearing, comfortable, no acute distress, alert and awake Nutritional Appearance: well nourished Orientation/consciousness: patient oriented x3 HENMT Head: Yes normocephalic and Yes atraumatic Resp Effort & Inspection: normal respiratory effort, able to speak in complete sentences and not labored GI Inspection: No distended Skin Other: Patient has a large suprapubic healing scar extending from the left flank to the right flank. The most left lateral aspect has a small eschar with minimal edema, no significant beefy red erythema or active drainage. This area is tender to palpation. General skin exam: elasticity normal Neuro General: patient oriented x3 Cranial nerves: Yes Bilaterally intact EOM present Cognition (Neuro): normal cognition Extrem Other: Moving all extremities well without any obvious deformities Course Course Course Narrative: This is an RME done by TABITHA Allen: Additional HPI, ROS, PE not included below will be deferred to primary provider. 29 yo f presents sp breast life, tummy tuck, and BBL done in [place] on 05/30/2024. Reports small scab on the left hip thats hurting her. Medications Administered Discontinued Medications Generic Name Dose Route Start Last Admin Trade Name Freq PRN Reason Stop Dose Admin Cyclobenzaprine HCl 10 mg 06/27/24 19:49 06/27/24 20:06 Cyclobenzaprine Hcl 10 Mg Tablet PO 06/27/24 19:50 10 mg ONCE ONE Administration Medical Decision Making Medical Decision Making [facility] Narrative: This is a healthy 29-year-old female presenting for evaluation of a plastic surgery complication. She has a small non healing aspect of the liposuction surgical scar. She has an eschar to this area. There is no active drainage, there is no fluctuance to suggest abscess or active infection. The patient will be referred to General surgery for follow-up of the wound care. She reports that she already has information for the wound care clinic and called them but has not received a call back. Differential Diagnosis Differential Diagnoses: The differential diagnosis associated with the presentation includes Nonhealing wound Abscess Wound dehiscence Cellulitis Lab Data [facility] Lab Attestation statement: I reviewed the patient's lab results. Patient has no leukocytosis. She does have a mild normocytic anemia which is new from 2 months ago, however she did have her surgery after her last labs and this could explain the drop in her hemoglobin hematocrit. She has no obvious active bleeding. Patient's chemistries within normal limits 06/27/24 17:42 06/27/24 17:42 Labs: Lab Results 06/27/24 Range/Units 17:42 WBC 6.0 (4.8-10.8) X10*3/uL RBC 3.49 L D (4.20-5.50) X10*6/uL Hgb 10.6 L D (12.0-16.0) g/dl Hct 32.6 L D (37.0-47.0) % MCV 93.4 (80.0-98.0) fL MCH 30.4 (27.0-33.0) pg MCHC 32.5 (31.0-35.0) g/dl RDW 12.4 (11.0-16.0) % Plt Count 482 H D (160-400) X10*3/uL MPV 9.5 (9.4-12.3) fL Immature Gran % (Auto) 0.3 (0.0-0.4) % Neut % (Auto) 67.4 (45-73) % Lymph % (Auto) 22.3 (20-40) % Bourbon % (Auto) 7.8 (2-11) % Eos % (Auto) 1.7 (0-4) % Baso % (Auto) 0.5 (0-2) % Lymph # (Auto) 1.3 (1.2-4.9) X10*3/uL Bourbon # (Auto) 0.5 (0.1-1.2) X10*3/uL Eos # (Auto) 0.1 (0.0-0.4) X10*3/uL Baso # (Auto) 0.0 (0.0-0.2) X10*3/uL Abs Immat Gran (auto) 0.02 (0.00-0.03) X10*3/uL Absolute Neuts (auto) 4.0 (2.0-8.3) x10*3/uL Absolute Nucleated RBC 0.000 (0.0-0.012) X10*3/uL Nucleated RBC % (auto) 0.0 (0.0-0.2) /100WBC Sodium 141 (135-145) mmol/L Potassium 4.0 (3.3-5.1) mmol/L Chloride 106 (96-108) mmol/L Carbon Dioxide 27 (22-29) mmol/L Anion Gap 12 (12-20) BUN 12 (9-16) mg/dL Creatinine 0.70 (0.5-1.4) mg/dL Estim Creat Clear Calc 111.4 Estimated GFR > 60 Random Glucose 86 (60-115) mg/dL Calcium 9.6 D (8.4-10.2) mg/dL Total Bilirubin 0.4 (0.0-1.0) mg/dL AST 13 (5-31) U/L ALT 12 (0-31) U/L Alkaline Phosphatase 36 L (39-117) U/L Total Protein 7.2 (6.5-8.0) g/dL Albumin 4.1 (3.5-5.0) g/dL Discharge Plan Discharge Clinical Impression: Wound disruption, post-op, skin Patient Disposition: Home, Self-Care Instructions: Wound Dehiscence (ED) Additional Instructions: Your wound does not appear to be acutely infected. You may use warm compresses that may help with healing. I recommend that you follow-up with general surgery, Dr. Wheeler at the number provided Prescriptions: New cyclobenzaprine 10 mg tablet 10 mg PO TID PRN (Reason: muscle spasm) Qty: 20 0RF No Action bariatric fusion PO DAILY Referrals: Mark Wheeler MD [Physician] - (non healing surgical wound) Interventions: ED Discharge Assessment Last Done: 06/27/24 20:07 Discharge Date/Time: 06/27/24 20:07 Print Language: Bhutanese
[2024-06-27 17:54] LABS: MANUAL DIFF FLAG NO
[2024-06-27 18:15] LABS: Alanine Aminotransferase 12 U/L (0-31); Albumin Level 4.1 g/dL (3.5-5.0); Alkaline Phosphatase 36 U/L (39-117); Anion Gap 12 (12-20); Aspartate Amino Transferase 13 U/L (5-31); Bilirubin Total 0.4 mg/dL (0.0-1.0); Blood Urea Nitrogen 12 mg/dL (9-16); Calcium 9.6 mg/dL (8.4-10.2); Carbon Dioxide 27 mmol/L (22-29); Chloride 106 mmol/L (96-108); Creatinine Clr Calc Pharmacy 111.4; Estimated Glomerular Filt Rate > 60; Glucose Random 86 mg/dL (60-115); Sodium 141 mmol/L (135-145); Total Protein 7.2 g/dL (6.5-8.0)
[2024-06-27 18:21] LABS: Basophils Percent Auto 0.5 % (0-2); Eosinophils Absolute Auto 0.1 X10*3/uL (0.0-0.4); Eosinophils Percent Auto 1.7 % (0-4); Hematocrit 32.6 % (37.0-47.0); Hemoglobin 10.6 g/dl (12.0-16.0); Imm Gran Abs Auto 0.02 X10*3/uL (0.00-0.03); Imm Gran Pct Auto 0.3 % (0.0-0.4); Lymphocytes Absolute Auto 1.3 X10*3/uL (1.2-4.9); Lymphocytes Percent Auto 22.3 % (20-40); Mean Corpuscular HGB Conc 32.5 g/dl (31.0-35.0); Mean Corpuscular Hemoglobin 30.4 pg (27.0-33.0); Mean Corpuscular Volume 93.4 fL (80.0-98.0); Mean Platelet Volume 9.5 fL (9.4-12.3); Monocytes Absolute Auto 0.5 X10*3/uL (0.1-1.2); Monocytes Percent Auto 7.8 % (2-11); Neutrophils Percent Auto 67.4 % (45-73); Platelet Count 482 X10*3/uL (160-400); Red Blood Count 3.49 X10*6/uL (4.20-5.50); Red Cell Distribution Width 12.4 % (11.0-16.0)
[2024-06-27 19:50] VITALS: BP 122/75; PULSE 61; RESP 18; TEMP 36.8; O2SAT 100
[2024-06-27] MEDS: Cyclobenzaprine HCl 10 MG TABLET PO (20:06)
[2024-06-27 20:07] VITALS: BP 122/75; PULSE 61; RESP 18; TEMP 36.8; O2SAT 100
== END 2024-06-27 20:07 | disposition home or self-care (01) ==
PROVIDERS: Physician Assistant; Emergency Provider Emergency Medicine; PCP Physician Assistant
DX: T81.31XA Disruption of external operation (surgical) wound, not elsewhere classified, initial encounter (principal); Y83.4 Other reconstructive surgery as the cause of abnormal reaction of the patient, or of later complication, without mention of misadventure at the time of the procedure; Y92.9 Unspecified place or not applicable; Y81.3 Surgical instruments, materials and general- and plastic-surgery devices (including sutures) associated with adverse incidents
CPT/HCPCS: 36415; 80053; 85025; 99283

== ENCOUNTER 2024-07-09 11:17 | Outpatient (AMB) | payer OTHER, SELFPAY ==
[2024-07-09 11:32] VITALS: BMI 27.5
--- NOTE | 2024-07-09 11:32 | A.OFFVIS_ITS ---
Vital Signs 07/09/24 11:32 Height 5 ft 3 in Weight 155 lb 0.006 oz BMI 27.5 Intake Visit Reasons: Kenny galvin wound check Intake Note: Patient referred after ER visit on 06-27-24 for wound infection on left flank. Was discharge with cyclobenzaprine rx. Patient c/o: reports she had abdominoplasty, breast surgery, 360 lipo with gluteal transfer, April in [place], [place]. Reports on the incision where one of the drain's where placed she has a bump inside the skin, reports after the drain was removed she had necrotic skin and bump inside of it, reports on the left breast she had sutures and two of them fell out and she is having leakage. Ms Sql Dba Required: No Accompanied by: Other Relationship Allergies cat dander Allergy (Intermediate, Verified 07/09/24 11:35) Runny Nose, sneezing dog dander Allergy (Intermediate, Verified 07/09/24 11:35) Runny Nose, sneezing seasonal allergies Allergy (Unknown, Uncoded 07/09/24 11:35) Unknown Seasonal IC Allergy (Unknown, Uncoded 07/09/24 11:35) Unknown HPI Comments Details: Patient status post bilateral breast augmentation, abdominal plasty, and buttock lipid Fillers approximately 6 weeks ago in [place]. She presents here for postop evaluation. All in all, the incisions were healing uneventfully. Patient has at the extreme of her abdominoplasty some induration were the sutures used are either not fully resolved with a body is tempting to extrude them. No evidence of any infection or cellulitis at this time. Patient has similar changes on her breast incisions. Again no evidence of any infection anywhere. COUNTS INCLUDE 234 BEDS AT THE [facility] Medical History Constipation Localized papular rash Rash and nonspecific skin eruption Seasonal allergies PCOS (polycystic ovarian syndrome) Morbid obesity Surgical History History of gastric surgery History of section History of bilateral carpal tunnel release Family History Father Diabetes Mother Asthma Brother Heart attack, Onset Age: 45 Brother No problems noted. Brother No problems noted. Sister No problems noted. Son No problems noted. Family/Other Substance use disorder Social History Household Members: Family Housing: House Are you a primary family day care worker to a significant other at home: Yes (8 + 15 yr old) Do you presently have visiting nurse or other home services: No Alcohol intake: never Patient Tobacco Use Status: Never used Tobacco e-Cigarette/Vaping Use: Never Used Second Hand Smoke Exposure: No Advance Directives Date on File: 03/18/23 service: No Current occupational status: employed Current occupation: [employer] Current occupational exposures/hazards: No Cognitive needs: No Hearing needs: No Vision needs: Yes Physical Exam Vital Signs: BMI result Body Mass Index 27.5 Chest Other: See above GI Other: See above Assessment & Plan Assessment & Plan (1) Status post abdominoplasty: Code(s): Z98.890 - Other specified postprocedural states Category: Medical (2) Status post breast augmentation: Code(s): Z98.82 - Breast implant status Category: Medical Plan At present, no surgical intervention is required. Patient has been given local instructions and will otherwise follow-up p.r.n.. Any major issues, although unlikely at this time, she should contact her surgeon's in [place]. All questions answered. Coding Level of Care Code New Pt Level 4 (43770) Diagnoses Status post abdominoplasty Z98.890 Status post breast augmentation Z98.82
== END 2024-07-09 11:39 | disposition home or self-care (01) ==
PROVIDERS: PCP Physician Assistant; Visit Provider Surgery
DX: Z98.890 Other specified postprocedural states (principal); Z98.82 Breast implant status
CPT/HCPCS: 99204

== ENCOUNTER → 2024-07-09 11:17 | Outpatient (BNVA) | payer OTHER, SELFPAY | PROVIDERS: PCP Physician Assistant; Visit Provider Surgery | DX: Z98.890 Other specified postprocedural states (principal); Z98.82 Breast implant status | CPT/HCPCS: 99202 ==

== ENCOUNTER 2024-08-16 15:57 | Outpatient (AMB) | payer OTHER, SELFPAY ==
[2024-08-16 16:11] VITALS: BP 120/70; PULSE 70; O2SAT 98; BMI 27.4
--- NOTE | 2024-08-16 16:11 | A.OFFPC_ITS ---
Vital Signs 3 08/16/24 16:11 Height 5 ft 3 in Weight 154 lb 8 oz BMI 27.4 BP 120/70 Blood Pressure Location Lt brachial Position Sitting Pulse 70 Pulse Source Pulse Oximeter Pulse Oximetry (%) 98 Oxygen Delivery Method Room Air Intake Visit Reasons: Surgery F/U Intake Note: The patient is here for a follow-up after three emergency department visits to [facility] following her abdominoplasty. She had an abscess that was drained and treated, but she now has a small area of wound dehiscence that is causing concern. She is asking if it?s safe to take a third course of antibiotics, specifically doxycycline 100 mg and mupirocin 2% ointment, as she has developed a rash across her back. Landfill Attendant Required: No Accompanied by: Self / Same As Patient Allergies cat dander Allergy (Intermediate, Verified 08/16/24 16:16) Runny Nose, sneezing dog dander Allergy (Intermediate, Verified 08/16/24 16:16) Runny Nose, sneezing seasonal allergies Allergy (Unknown, Uncoded 08/16/24 16:16) Unknown Seasonal IC Allergy (Unknown, Uncoded 08/16/24 16:16) Unknown Medication List - Last Reconciled 08/16/24 by Kyle Zuniga PA-C [bariatric fusion PO DAILY] cyclobenzaprine 10 mg PO TID PRN Tobacco use date assessed: 01/02/24 Dental Screening Dental Screen Date: 01/02/24 HPI Surgery F/U 2 HPI0 Details This is a 29-year-old female here today for a follow-up visit. She recently underwent an abdominoplasty in [place] and return back home. Unfortunately had some complication with wound dehiscence and an abscess and was seen at a local ERs multiple times. She was found to have an abscess that needed drainage and subsequently needed p.o. antibiotics. Has followed up with general surgeon though no surgical intervention was needed at this time. Has been using topical antibiotic. She is concerned about read dehiscence and her inability to hear her wound as it has been 2 months since her abdominoplasty. She does admit to exercising regularly to try to maintain her weight loss and could be contributing to her wound dehiscence recurrence [facility] Medical History Constipation Localized papular rash Rash and nonspecific skin eruption Seasonal allergies PCOS (polycystic ovarian syndrome) Morbid obesity Surgical History History of gastric surgery History of section History of bilateral carpal tunnel release Family History Father Diabetes Mother Asthma Brother Heart attack, Onset Age: 45 Brother No problems noted. Brother No problems noted. Sister No problems noted. Son No problems noted. Family/Other Substance use disorder Social History Household Members: Family Housing: House Are you a primary md do resident urgent care to a significant other at home: Yes (8 + 15 yr old) Do you presently have visiting nurse or other home services: No Alcohol intake: never Patient Tobacco Use Status: Never used Tobacco e-Cigarette/Vaping Use: Never Used Second Hand Smoke Exposure: No Advance Directives Date on File: 03/18/23 service: No Current occupational status: employed Current occupation: [employer] Current occupational exposures/hazards: No Cognitive needs: No Hearing needs: No Vision needs: Yes Questionnaire Thrive Questionnaire Date Thrive assessed: 01/02/24 DANGELO-7 AMB Questionnaire DANGELO-7 Date DANGELO - 7 assessed: 01/02/24 Source: Developed by Drs. Avel Duncan, [place] Kam, Gabriel Whitman and colleagues, with an educational donald from [employer]. Review of Systems Const Denies headache(s) Eyes Denies loss of vision ENT Denies vertigo, Denies dizziness, Denies headache(s) and Denies sore throat Card Denies chest pain, Denies leg edema and Denies lightheadedness Resp Denies cough, Denies hemoptysis and Denies wheezing GI Denies abdominal pain, Denies melena, Denies constipation, Denies diarrhea and Denies vomiting Denies urinary frequency, Denies dysuria and Denies urinary urgency Musc Denies arthralgias, Denies joint swelling, Denies numbness and Denies tingling Neuro Denies Abnormal speech present, Denies behavioral changes, Denies vertigo, Denies dizziness, Denies headache(s), Denies loss of vision, Denies memory loss, Denies numbness and Denies tingling Psych Denies anxiety, Denies behavioral changes, Denies depression, Denies memory loss and Denies panic attacks Tyler/Lymph Denies easy bleeding and Denies easy bruising Aller/Immun Denies wheezing Physical exam (Primary Care) Vital Signs: Last Vital Signs Pulse 70 08/16/24 16:11 BP 120/70 08/16/24 16:11 Pulse Ox 98 08/16/24 16:11 Oxygen Delivery Method Room Air 08/16/24 16:11 BMI result Body Mass Index 27.4 Tobacco/Smoking Status: Tobacco use Status Tobacco use date assessed 01/02/24 08/16/24 16:17 Patient Tobacco Use Status Never used Tobacco 08/16/24 16:17 e-Cigarette/Vaping Use Never Used 08/16/24 16:17 Thrive Assessment: Date of Thrive Assessment Date Thrive assessed 01/02/24 08/16/24 16:17 Const General: healthy appearing, no acute distress, alert and awake Nutritional Appearance: well nourished Orientation/consciousness: oriented to person, oriented to place and oriented to time HENMT Ears: TM's normal bilaterally General nose exam: Normal nasal mucous membranes and turbinates present Eyes Conjunctivae: conjunctivae normal Sclerae: sclerae normal Pupils: Equal, round and reactive pupils present Neck Neck: Yes no lymphadenopathy and Yes no JVD Thyroid: Thyroid normal Carotids: no bruits Resp Effort & Inspection: normal respiratory effort and not tachypneic Auscultation: no crackles, no rales, no rhonchi and no wheezes Cardio Rate: regular rate Rhythm: regular rhythm Heart sounds: no murmurs and normal S1 and S2 GI Palpation (GI): Soft to palpation, nontender, no hepatomegaly and no splenomegaly Auscultation: normal bowel sounds Abdomen image: 2 1. TO OPEN AREAS AT HER SURGICAL SITE. NOSURROUNDING ERYTHEMA ANY PURULENT DRAINAGE. Skin General skin exam: no rashes or lesions noted and dry skin Neuro General: oriented to person, oriented to place and oriented to time Cranial nerves: Yes Equal, round and reactive pupils present Speech: No Abnormal speech present Gait exam (Neuro): Normal gait present Motor exam (neuro): no tremor noted Extrem Right upper extremity: full ROM Left upper extremity: full ROM Right lower extremity: full ROM; no edema Left lower extremity: full ROM; no edema Psych Mental Status: mental status grossly normal Speech and movement: Normal speech and movement present Affect: normal affect Attitude: cooperative Thought process: Normal thought process present Office Procedures Flu Questionnaire Does the patient have a severe egg allergy?: No Does the patient have severe life threatening allergies?: No Immunizations Fluarix Triv [id number] (PF) 45 mcg (15 mcg x 3)/0.5 mL IM syringe Performing Provider: Kyle Zuniga PA-C [facility] Documented (not given) by: ABNER Santiago on 08/16/24 16:19 Reason Not Given: Patient Refused Coding Level of Care Code Est Pt Level 3 (13129) Diagnoses Wound dehiscence T81.30XA Assessment & Plan Assessment & Plan (1) Wound dehiscence: Code(s): T81.30XA - Disruption of wound, unspecified, initial encounter Category: Medical Plan: Patient seems to have recurrent small wound dehiscence. She a wound abscess that required oral antibiotics and then subsequently required incision and drainage. She has reached out to her [place] surgeon and they advised patient to try some more antibiotics though patient is concerned about this as she is at a rash to doxycycline. Clinically does not appear to an infection at this time Advised on keeping area dry and covered for now. Advised on no physical activity to help wound heal. Will supply patient alternative antibiotic Orders: Orders 2 Influenza [id number] Immunization 08/16/24 Z23 - Encounter for immunization Medications: New 2 amoxicillin-pot clavulanate 875-125 mg 1 tab PO BID 7 days 14 tabs 0RF T81.30XA - Disruption of wound, unspecified, initial encounter
== END 2024-08-16 16:32 | disposition home or self-care (01) ==
PROVIDERS: PCP Physician Assistant; Visit Provider Physician Assistant
DX: T81.30XA Disruption of wound, unspecified, initial encounter (principal)

== ENCOUNTER → 2024-08-16 15:57 | Outpatient (BNVA) | payer OTHER, SELFPAY | PROVIDERS: PCP Physician Assistant; Visit Provider Physician Assistant | DX: T81.30XA Disruption of wound, unspecified, initial encounter (principal); Z28.21 Immunization not carried out because of patient refusal | CPT/HCPCS: 90471; 99212 ==

== ENCOUNTER 2024-09-20 10:30 | Outpatient (AMB) | payer OTHER, SELFPAY ==
--- NOTE | 2024-09-20 10:36 | A.OFFPC_ITS ---
Vital Signs 09/20/24 10:37 Height 5 ft 3 in Weight 160 lb 4 oz BMI 28.4 BP 130/78 Blood Pressure Location Lt brachial Position Sitting Pulse 64 Pulse Source Pulse Oximeter Pulse Oximetry (%) 99 Oxygen Delivery Method Room Air Intake Visit Reasons: bump on left gluteal Intake Note: Patient is here to follow up on Lump on left butt. National Stormwater Leader Required: No Closet Builder: Not Required per policy Accompanied by: Self / Same As Patient Allergies cat dander Allergy (Intermediate, Verified 09/20/24 10:37) Runny Nose, sneezing dog dander Allergy (Intermediate, Verified 09/20/24 10:37) Runny Nose, sneezing seasonal allergies Allergy (Unknown, Uncoded 09/20/24 10:37) Unknown Seasonal IC Allergy (Unknown, Uncoded 09/20/24 10:37) Unknown Tobacco use date assessed: 09/20/24 Dental Screening Dental Screen Date: 01/02/24 HPI bump on left gluteal HPI Details 29-year-old female presents to the [facility] for a sick [facility]. Patient reports a bump on her left gluteal cheek that she would like examined. She has noticed it for a month. No discharge. [facility] Medical History (Updated 08/16/24 @ 16:22 by Kyle Zuniga PA-C) Constipation Localized papular rash Rash and nonspecific skin eruption Seasonal allergies PCOS (polycystic ovarian syndrome) Morbid obesity Surgical History (Updated 09/20/24 @ 10:44 by MARÍA Krueger) History of abdominoplasty History of liposuction of abdomen History of bilateral breast reduction surgery History of gastric surgery History of section History of bilateral carpal tunnel release Family History Father Diabetes Mother Asthma Brother Heart attack, Onset Age: 45 Brother No problems noted. Brother No problems noted. Sister No problems noted. Son No problems noted. Family/Other Substance use disorder Social History Household Members: Family Housing: House Are you a primary care process manager to a significant other at home: Yes (8 + 15 yr old) Do you presently have visiting nurse or other home services: No Alcohol intake: never Patient Tobacco Use Status: Never used Tobacco e-Cigarette/Vaping Use: Never Used Second Hand Smoke Exposure: No Advance Directives Date on File: 03/18/23 service: No Current occupational status: employed Current occupation: [email or web address] Current occupational exposures/hazards: No Cognitive needs: No Hearing needs: No Vision needs: Yes Questionnaire Thrive Questionnaire Date Thrive assessed: 01/02/24 AUDIT C Alcohol Use Questionnaire (AUDIT-C) 3. How often do you have six or more drinks on one occasion?: Never Total Score: 0 DANGELO-7 AMB Questionnaire DANGELO-7 Date DANGELO - 7 assessed: 01/02/24 Source: Developed by Drs. Avel Duncan, [place] Kam, Gabriel Whitman and colleagues, with an educational donald from [employer]. Physical exam (Primary Care) Vital Signs: Last Vital Signs Pulse 64 09/20/24 10:37 BP 130/78 09/20/24 10:37 Pulse Ox 99 09/20/24 10:37 Oxygen Delivery Method Room Air 09/20/24 10:37 BMI result Body Mass Index 28.4 Tobacco/Smoking Status: Tobacco use Status Tobacco use date assessed 09/20/24 09/20/24 10:46 Patient Tobacco Use Status Never used Tobacco 09/20/24 10:46 e-Cigarette/Vaping Use Never Used 09/20/24 10:46 Thrive Assessment: Date of Thrive Assessment Date Thrive assessed 01/02/24 09/20/24 10:46 Const Other: Exam done with a female land surveyor assistant in the room. Skin Other: Gluteal area: Left gluteal: 2 cm lesion, separate from the overlying skin. Nontender to touch. No overlying erythema. Coding Level of Care Code Est Pt Level 3 (89277) Complex EM visit Add On G2211 Diagnoses Lump in the groin R19.09 Assessment & Plan Assessment & Plan (1) Lump in the groin: Code(s): R19.09 - Other intra-abdominal and pelvic swelling, mass and lump Plan: Ultrasound of the area has been scheduled. Most likely it is a deeply borrowed ingrowing hair or a small accumulation of fat. Patient was reassured. Orders: Orders US soft tiss head and/or neck 09/20/24 R19.09 - Other intra-abdominal and pelvic swelling, mass and lump
[2024-09-20 10:37] VITALS: BP 130/78; PULSE 64; O2SAT 99; BMI 28.4
== END 2024-09-20 11:04 | disposition home or self-care (01) ==
PROVIDERS: PCP Physician Assistant; Visit Provider Internal Medicine
DX: R19.09 Other intra-abdominal and pelvic swelling, mass and lump (principal)

== ENCOUNTER → 2024-09-20 10:30 | Outpatient (BNVA) | payer OTHER, SELFPAY | PROVIDERS: PCP Physician Assistant; Visit Provider Internal Medicine | DX: R19.09 Other intra-abdominal and pelvic swelling, mass and lump (principal) | CPT/HCPCS: 99212 ==

== ENCOUNTER 2024-12-26 09:07 | Outpatient (AMB) | payer OTHER, SELFPAY ==
[2024-12-26 09:10] VITALS: BP 123/56; PULSE 77; BMI 30.6
--- NOTE | 2024-12-26 09:10 | A.OFFVIS_ITS ---
Vital Signs 12/26/24 09:10 Height 5 ft 3 in Weight 172 lb 8 oz BMI 30.6 BP 123/56 L Blood Pressure Location Lt brachial Position Sitting Pulse 77 Intake Visit Reasons: OV PO LSG 03/16/23 Intake Note: Follow-up PO LSG 03/16/23 c/o gaining weight want to get back on track Chief School Finance Officer Required: No Allergies cat dander Allergy (Intermediate, Verified 09/20/24 10:37) Runny Nose, sneezing dog dander Allergy (Intermediate, Verified 09/20/24 10:37) Runny Nose, sneezing seasonal allergies Allergy (Unknown, Uncoded 09/20/24 10:37) Unknown Seasonal IC Allergy (Unknown, Uncoded 09/20/24 10:37) Unknown Medication List - Last Reconciled 12/26/24 by TABITHA Bean [bariatric fusion PO DAILY] cyclobenzaprine 10 mg PO TID PRN HPI Comments Details: This?a?29?yo female who is s/p LSG without hiatal hernia repair on?03/16/[address] Escalera. Presents for 1 year 9 month post op visit. Weight today is 172.8 pounds, with a BMI of 30.6. There has been a 66 pound weight loss,(initial weight 238.8 pounds) since starting the program on 12/29/22 reflecting a 27.6% total body weight loss and a weight loss of 32.2 pounds since surgery (operative weight 205 pounds) reflecting a 15.7% TBWL since surgery. No complaints of nausea, emesis, abdominal pain or reflux. Reports infrequent but normal bowel movements every 2 days and uses stool softeners regularly. She underwent liposuction, tummy tuck, breast reduction in 05/19/2024 in [facility]. She developed wound cellulitis and dehiscence of the transverse abdominal wound laterally bilaterally in 08/19/2024. This is now healing. She has additionally gained weight since last being seen in the office and would like to return to a more structured meal plan. Currently not following a meal plan Previously recommended meal plan includes: orgain powder, Shake 8-10, 2 scoops 1 pm Yogurt 3 pm meal 6 forks of protein and 6 forks of vegetables 5-7 another yogurt or Atkins bar Drinking 48 oz water Vitamins:? Bariatric fusion soft chew, taking 2 per day +1 calcium soft chew - adequate Exercise routine includes: nothing currently. previously walking on the treadmill 30-45 min, 3 x per week, 200 calories. None in the last several weeks due to being too busy [facility] Medical History Constipation Localized papular rash Rash and nonspecific skin eruption Seasonal allergies PCOS (polycystic ovarian syndrome) Morbid obesity Surgical History History of abdominoplasty History of liposuction of abdomen History of bilateral breast reduction surgery History of gastric surgery History of section History of bilateral carpal tunnel release Family History Father Diabetes Mother Asthma Brother Heart attack, Onset Age: 45 Brother No problems noted. Brother No problems noted. Sister No problems noted. Son No problems noted. Family/Other Substance use disorder Social History Household Members: Family Housing: House Are you a primary animal care technician to a significant other at home: Yes (8 + 15 yr old) Do you presently have visiting nurse or other home services: No Alcohol intake: never Patient Tobacco Use Status: Never used Tobacco e-Cigarette/Vaping Use: Never Used Second Hand Smoke Exposure: No Advance Directives Date on File: 03/18/23 service: No Current occupational status: employed Current occupation: [employer] Current occupational exposures/hazards: No Cognitive needs: No Hearing needs: No Vision needs: Yes Physical Exam Const General: healthy appearing and no acute distress Resp Effort & Inspection: normal respiratory effort Auscultation: clear to auscultation bilaterally Cardio Rate: regular rate Rhythm: regular rhythm GI Auscultation: normal bowel sounds Skin Other: Thickened scar laterally, bilaterally transverse lower abdominal incision Extrem General: Yes normal to inspection Assessment & Plan Assessment & Plan (1) S/P laparoscopic sleeve gastrectomy: Code(s): Z98.84 - Bariatric surgery status Category: Surgical Plan: Patient has regained approximately 20 lb since last visit. She additionally underwent liposuction and tummy tuck with incisional dehiscence postoperatively. This is healing. She needs to return to a structured meal plan and exercise plan. orgain powder, Shake 8-10, 2 scoops 1 pm Yogurt 3 pm meal 6 forks of protein and 6 forks of vegetables 5-7 another shake with 1 scoop Resume exercise with a goal of burning 300 calories per day. She may use weight training if she wishes, prior to cardio. Encouraged to send weight is weekly by text Return to clinic 1 month Coding Level of Care Code Est Pt Level 4 (37162) Complex EM visit Add On G2211 Diagnoses S/P laparoscopic sleeve gastrectomy Z98.84 Time Spent (min) 40
== END 2024-12-26 09:40 | disposition home or self-care (01) ==
PROVIDERS: PCP Physician Assistant; Visit Provider Physician Assistant Surgical
DX: E66.811 Obesity, class 1 (principal); Z68.30 Body mass index [BMI] 30.0-30.9, adult; Z90.3 Acquired absence of stomach [part of]; Z98.84 Bariatric surgery status
CPT/HCPCS: 99214; G2211

== ENCOUNTER → 2024-12-26 09:07 | Outpatient (BNVA) | payer OTHER, SELFPAY | PROVIDERS: PCP Physician Assistant; Visit Provider Physician Assistant Surgical | DX: Z98.84 Bariatric surgery status (principal) | CPT/HCPCS: 99212 ==

== ENCOUNTER 2025-05-20 12:53 | Outpatient (REF) | payer OTHER, SELFPAY ==
--- OUTSIDE RECORDS SUMMARY | 2025-05-20 14:41 | XMS_ITS | Clinical Summary ---
Author Organization [facility] Address [address] [place] [phone] Phone Care Team Providers Care Toy Assembler Name Role Phone Unavailable Primary Care Provider Unavailabl e Social History Tobacco Use Types Packs/Day Years Used Date Smoking Tobacco: Never Assessed Comments Unknown Sex and Gender Information Value Date Recorded Sex Assigned at Not on file Legal Sex Female 12:17 PM EST Gender Identity Not on file Sexual Orientation Not on file Plan of Treatment Health Maintenance Due Date Last Done Comments MMR Vaccines (1 of 1 - Stand shima series) 01/17/1996 Varicella Vaccines (1 of 2 - 13+ 2-dose series) 01/17/2008 DTaP,Tdap,and Td Vaccines (1 - Tdap) 2013 Hepatitis B Vaccines (1 of 3 - 19+ 3-dose series) 2014 COVID-19 Vaccine ( - 2023-2 5 season) 2024 Influenza Vaccines (#1) 2025 HIB Vaccines Aged Out No longer eligi ble based on patient's age to complete this topic HPV Vaccines Aged Out No longer eligi ble based on patient's age to complete this topic Hepatitis A Vaccines Aged Out No long er eligible based on patient's age to complete this topic IPV Vaccines Aged Out No longer eligi ble based on patient's age to complete this topic Men B Vaccine Aged Out No longer elig ible based on patient's age to complete this topic Meningococcal Vaccine Aged Out No gabby juli eligible based on patient's age to complete this topic Pneumococcal Vaccine Aged Out No long er eligible based on patient's age to complete this topic
--- OUTSIDE RECORDS SUMMARY | 2025-05-20 14:41 | XMS_ITS | Encounter Summary ---
Author Organization [facility] Address [address] [place] [phone] Phone Care Team Providers Care Paver Operator Name Role Phone Renetta Hogue MD Primary Care Provider + Kyle Zuniga Primary Care Provider + Encounter Details Date Type Department Care Team (Late st Contact Info) Description 06/23/2018 Ancillary Orders Virtual Department [address] [place] [phone] Jackie Mckeon MD, PhD [address] [place] [address] [email or web address] Pelvic pain Social History Tobacco Use Types Packs/Day Years Used Date Smoking Tobacco: Some Days Smokeless Tobacco: Never Alcohol Use Standard Drinks/Week Comments No 0 (1 standard drink = 0.6 oz pur e alcohol) Comments No Sex and Gender Information Value Date Recorded Sex Assigned at Female 11/27/2017 1:36 PM EST Legal Sex Female 8:53 PM EDT Gender Identity Female 11/27/2017 1:36 PM EST Sexual Orientation Straight 11/27/2017 1: 36 PM EST documented as of this encounter Plan of Treatment Not on file documented as of this encounter Results * US PELVIS TRANSABDOMINAL PLUS TRANSVAGINAL (06/23/2018 11:53 AM EDT) Anatomical Region Laterality Modality Pelvis, Uterus/Adnexa Ultrasound 06/23/2018 12:0 8 PM EDT Impressions 06/23/2018 12:10 PM EDT Retroverted uterus with a 1.1 cm endometrial stripe. No adnexal masses of concern are noted. No free fluid in the pelvis is seen. S/S: Pelvic pain POS - [id number] Narrative 06/23/2018 12:10 PM EDT COMPARISON: Pelvic ultrasound October 02, 2012 FINDINGS: The uterus measures 10.3 x 3.8 x 4.9 cm in size with a 1.1 cm endometrial stripe. Both transabdominal and transvaginal imaging is obtained. The uterus is mildly retroverted and is relatively homogeneous. No adnexal masses are noted. Small follicular cysts are evident in each adnexa. No fluid is seen in the cul-de-sac. Procedure Note Babak Morrow MD - 06/23/2018 COMPARISON: Pelvic ultrasound October 02, 2012 FINDINGS: The uterus measures 10.3 x 3.8 x 4.9 cm in size with a 1.1 cm endometrialstripe. Both transabdominal and transvaginal imaging is obtained. The uterus is mildly retroverted and is relatively homogeneous. No adnexal masses are noted. Small follicular cysts are evident in eachadnexa. No fluid is seen in the cul-de-sac. IMPRESSION: Retroverted uterus with a 1.1 cm endometrial stripe. No adnexal masses ofconcern are noted. No free fluid in the pelvis is seen. S/S: Pelvic pain POS - [id number] us Jackie Mckeon MD, PhD IMG US PELVIS Fin al Result documented in this encounter Visit Diagnoses Diagnosis Pelvic pain Pelvic pain documented in this encounter Additional Health Concerns Infection Onset Date Last Indicated Resolved Time CoV-Risk 10/24/2021 10/24/2021 10/24/2021 8:47 PM EST COVID-19 10/24/2021 10/24/2021 11/14/2021 1:21 AM EST CoV-Risk 01/03/2022 01/03/2022 01/13/2022 1:21 AM EDT CoV-Risk 02/23/2022 02/23/2022 03/06/2022 1:23 AM EDT CoV-Risk 04/05/2022 04/05/2022 04/16/2022 1:22 AM EDT CoV-Risk 08/23/2023 08/23/2023 09/03/2023 1:22 AM EDT CoV-Risk 02/21/2024 02/21/2024 03/03/2024 1:22 AM EDT CoV-Risk 01/08/2025 01/08/2025 01/19/2025 1:22 AM EDT documented as of this encounter Care Teams Paver Operator Relationship Specialty Start Date End Date Renetta Hogue MD [address] [place] [phone] PCP - General Pediatrics 09/11/17 12/14/21 Kyle Zuniga PA [address] [place] [id number] PCP - General 12/15/21 documented as of this encounter Additional Source Comments The information contained in this document represents components of the legal health record. It is not the complete legal health record.[facility]
[2025-05-22 19:18] LABS: TS Negative Control Passed; TS Panel A 0; TS Panel B 0; TS Positive Control Passed; TSpotTB Negative (Negative)
== END 2025-05-20 12:54 | disposition home or self-care (01) ==
LOC: HO.LAB 12:53
PROVIDERS: Absent Provider Physician Assistant; PCP Physician Assistant; Visit Provider Physician Assistant Medical
DX: Z11.1 Encounter for screening for respiratory tuberculosis (principal)
CPT/HCPCS: 36415; 86481

== ENCOUNTER → 2025-05-20 12:53 | Outpatient (BNVA) | payer SELFPAY | PROVIDERS: PCP Physician Assistant; Visit Provider Physician Assistant Medical | DX: Z02.1 Encounter for pre-employment examination (principal) ==

== ENCOUNTER 2025-09-12 10:57 | Outpatient (AMB) | payer OTHER, SELFPAY ==
[2025-09-12 11:01] VITALS: BP 114/82; PULSE 75; TEMP 36.4; O2SAT 99; BMI 26.2
--- NOTE | 2025-09-12 11:01 | A.OFFPC_ITS ---
Vital Signs 09/12/25 11:01 Height 5 ft 3 in Weight 148 lb BMI 26.2 BP 114/82 Blood Pressure Location Lt brachial Position Sitting Pulse 75 Pulse Source Pulse Oximeter Temp 97.5 F Temp Source Temporal Artery Scan Pulse Oximetry (%) 99 Oxygen Delivery Method Room Air Intake Visit Reasons: Irritation Allergies cat dander Allergy (Intermediate, Verified 09/12/25 11:30) Runny Nose, sneezing dog dander Allergy (Intermediate, Verified 09/12/25 11:30) Runny Nose, sneezing seasonal allergies Allergy (Unknown, Uncoded 09/12/25 11:30) Unknown Seasonal IC Allergy (Unknown, Uncoded 09/12/25 11:30) Unknown Medication List - Last Reconciled 09/12/25 by Kyle Zuniga PA-C [bariatric fusion PO DAILY] cyclobenzaprine 10 mg PO TID PRN Tobacco use date assessed: 09/12/25 Dental Screening Dental Screen Date: 09/12/25 HPI Irritation HPI Details The patient is a 30-year-old female presenting for mental health support. She is experiencing significant life stressors, including her mother's Alzheimer's diagnosis, her son's struggles with ADHD, a recent job change, and a change in partners. She reports feeling lonely, hopeless, overwhelmed, and having anxious thoughts. The patient has no prior history of taking mental health medications. The patient was recently diagnosed with syphilis and also found out she has genital herpes, which presented with a first-time outbreak associated with the syphilis infection. Her diagnosis was made on 07/29, and she and her partner were treated at [facility]. She received a two-week course of antibiotics, which was not penicillin as [place]. She is concerned that the syphilis test may remain positive and wants retesting to check the treatment efficacy. [facility] Medical History Constipation Localized papular rash Rash and nonspecific skin eruption Seasonal allergies PCOS (polycystic ovarian syndrome) Morbid obesity Surgical History History of abdominoplasty History of liposuction of abdomen History of bilateral breast reduction surgery History of gastric surgery History of section History of bilateral carpal tunnel release Family History Father Diabetes Mother Asthma Brother Heart attack, Onset Age: 45 Brother No problems noted. Brother No problems noted. Sister No problems noted. Son No problems noted. 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 1. Little interest or pleasure in doing things: several days 2. Feeling down, depressed, or hopeless: more than half the days 3. Trouble falling or staying asleep, or sleeping too much: several days 4. Feeling tired or having little energy: several days 5. Poor appetite or overeating: several days 6. Feeling bad about yourself - or that you are a failure or have let yourself or your family down: more than half the days 7. Trouble concentrating on things, such as reading the newspaper or watching television: not at all 8. Moving or speaking so slowly that other people could have noticed. Or the opposite - being so fidgety or restless that you have been moving around a lot more than usual: not at all 9. Thoughts that you would be better off or of hurting yourself in some way: several days Total score: 9 Depression Screening Interpretation: Positive Depression Screening Follow-up: Existing condition, New Medication prescribed and Community Mental Health Worker F/U Depression Screening Done: Yes 47785 - PHQ-9 Billing: Yes Source: Developed by Drs. Avel Duncan, Jamaica Kam, Gabriel Whitman and colleagues, with an educational donald from [employer]. Thrive Questionnaire Date Thrive assessed: 12/31/24 I am a: Patient What is your living situation today?: I have a steady place to live Within the past 12 months, did the food you bought not last and you didn't have the money to get more?: Never true Within the past 12 months, did you worry whether your food would run out before you got money to buy more?: Never true Do you have trouble paying for medicines?: No Do you have trouble getting transportation to medical appointments?: No Do you have trouble paying your heating and electricity bill?: No Do you have trouble taking care of your child, family member or friend?: No Do you have trouble with day-to-day activities such as bathing, preparing meals, shopping, managing finances, etc.?: No Are you currently unemployed and looking for a job?: No Are you interested in more education?: No Please select the resources that you would like help with: None Currently or been in a relationship where the following occur: No concerns reported THRIVE Score: 0 AUDIT C Alcohol Use Questionnaire (AUDIT-C) 1. How often do you have a drink containing alcohol?: Never 3. How often do you have six or more drinks on one occasion?: Never Total Score: 0 DANGELO-7 AMB Questionnaire DANGELO-7 Date DANGELO - 7 assessed: 09/12/25 Feeling nervous, anxious, or on edge: 0 = Not at all Not being able to stop or control worryin = Not at all Worrying too much about different things: 0 = Not at all Trouble relaxin = Not at all Being so restless that it is hard to sit still: 0 = Not at all Becoming easily annoyed or irritable: 0 = Not at all Feeling afraid as if something awful might happen: 0 = Not at all Total DANGELO-7 score (0-4 normal; 5-9 mild; 10-14 moderate; 15-21 severe): 0 Source: Developed by Drs. Avel Duncan, Jamaica Kam, Gabriel Whitman and colleagues, with an educational donald from [employer]. DANGELO-7 Assessment Billing DANGELO-7 Assessment Tool: DANGELO-7 Assessment 35166 Review of Systems Const Denies headache(s) Eyes Denies loss of vision ENT Denies vertigo, Denies dizziness, Denies headache(s) and Denies sore throat Card Denies chest pain, Denies leg edema and Denies lightheadedness Resp Denies cough, Denies hemoptysis and Denies wheezing GI Denies abdominal pain, Denies melena, Denies constipation, Denies diarrhea and Denies vomiting Denies urinary frequency, Denies dysuria and Denies urinary urgency Musc Denies arthralgias, Denies joint swelling, Denies numbness and Denies tingling Neuro Denies Abnormal speech present, Denies behavioral changes, Denies vertigo, Denies dizziness, Denies headache(s), Denies loss of vision, Denies memory loss, Denies numbness and Denies tingling Psych Denies anxiety, Denies behavioral changes, Denies depression, Denies memory loss and Denies panic attacks Tyler/Lymph Denies easy bleeding and Denies easy bruising Aller/Immun Denies wheezing Physical exam (Primary Care) Vital Signs: Last Vital Signs Temp 97.5 F 09/12/25 11:01 Pulse 75 09/12/25 11:01 BP 114/82 09/12/25 11:01 Pulse Ox 99 09/12/25 11:01 Oxygen Delivery Method Room Air 09/12/25 11:01 BMI result Body Mass Index 26.2 Tobacco/Smoking Status: Tobacco use Status Tobacco use date assessed 09/12/25 09/12/25 11:03 Patient Tobacco Use Status Never used Tobacco 09/12/25 11:03 e-Cigarette/Vaping Use Never Used 09/12/25 11:03 PHQ-9: PHQ-9 Score PHQ-9: Total score 9 09/12/25 11:33 Depression Screening Interpretation: Positive Depression Screening Follow-up: Existing condition, New Medication prescribed and Community Mental Health Worker F/U Thrive Assessment: Date of Thrive Assessment Date Thrive assessed 12/31/24 09/12/25 11:03 Currently or been in a relationship where the following occur: No concerns reported Const General: healthy appearing, no acute distress, alert and awake Nutritional Appearance: well nourished Orientation/consciousness: oriented to person, oriented to place and oriented to time HENMT Ears: TM's normal bilaterally General nose exam: Normal nasal mucous membranes and turbinates present Eyes Conjunctivae: conjunctivae normal Sclerae: sclerae normal Pupils: Equal, round and reactive pupils present Neck Neck: Yes no lymphadenopathy and Yes no JVD Thyroid: Thyroid normal Carotids: no bruits Resp Effort & Inspection: normal respiratory effort and not tachypneic Auscultation: no crackles, no rales, no rhonchi and no wheezes Cardio Rate: regular rate Rhythm: regular rhythm Heart sounds: no murmurs and normal S1 and S2 GI Palpation (GI): Soft to palpation, nontender, no hepatomegaly and no splenomegaly Auscultation: normal bowel sounds Skin General skin exam: no rashes or lesions noted and dry skin Neuro General: oriented to person, oriented to place and oriented to time Cranial nerves: Yes Equal, round and reactive pupils present Speech: No Abnormal speech present Gait exam (Neuro): Normal gait present Motor exam (neuro): no tremor noted Extrem Right upper extremity: full ROM Left upper extremity: full ROM Right lower extremity: full ROM; no edema Left lower extremity: full ROM; no edema Psych Mental Status: mental status grossly normal Speech and movement: Normal speech and movement present Affect: normal affect Attitude: cooperative Thought process: Normal thought process present Office Procedures Flu Questionnaire Does the patient have a severe egg allergy?: No Does the patient have severe life threatening allergies?: No Does the patient have a fever or illness today?: No Has the patient ever had Guillain-L[place] Syndrome?: No Has the patient ever had any past reaction to a flu shot?: No Immunizations Fluarix [id number] (PF) 45 mcg (15 mcg x 3)/0.5 mL IM syringe Performing Provider: Kyle Zuniga PA-C [facility] Administered by: Lashawn Trevizo CMA on 09/12/25 11:29 Dose Route Admin Location Dispensed Lot Number Expiration Date LAC Chief Legal Officer 0.5 mL IM Left Deltoid 0.5 mL [id number] 04/29/26 14960-289-68 [employer] VIS Given Date VIS Provided VIS Publication Date 09/12/25 Single Vaccine 24 Eligibility Eligibility Date Funding Source Not [facility] Eligible 09/12/25 Private Coding Level of Care Code Est Pt Level 4 (42527) Diagnoses Mild single current episode of major depressive disorder F32.0 H/O syphilis Z86.19 Additional Codes DANGELO-7 Assessment Billing - DANGELO-7 Assessment Tool: DANGELO-7 Assessment 32603 ([id number]) PHQ-9 - 45822 - PHQ-9 Billing: Yes ([id number]) Assessment & Plan Assessment & Plan (1) Mild single current episode of major depressive disorder: Code(s): F32.0 - Major depressive disorder, single episode, mild Category: Medical Plan: For management of depression and anxiety, sertraline will be initiated at a starting dose of 25 mg daily. The prescription will be sent to the [facility]. A referral for a mental health therapist will be placed, with the expectation that sessions will likely be conducted via telehealth. (2) H/O syphilis: Code(s): Z86.19 - Personal history of other infectious and parasitic diseases Category: Medical Plan: An order will be placed for syphilis retesting to evaluate the effectiveness of her recent treatment. The patient was informed she can go to the lab at her convenience. Orders: Orders Influenza [id number] Immunization Today Z23 - Encounter for immunization Syphilis Screen Today Z11.3 - Encounter for screening for infections with a predominantly sexual mode of transmission, Z86.19 - Personal history of other infectious and parasitic diseases Referrals Counseling Referral F32.0 - Major depressive disorder, single episode, mild Medications: New sertraline 25 mg PO DAILY 30 tabs 1RF 30 days F32.0 - Major depressive disorder, single episode, mild
--- OUTSIDE RECORDS SUMMARY | 2025-09-12 13:40 | XMS_ITS | Clinical Summary ---
Author Organization [facility] Address [address] [place] [phone] Phone Care Team Providers Care Medical Health Researcher Name Role Phone Kyle Zuniga Primary Care Provider + Allergies Active Allergy Reactions Criticality Noted Date Comments Animal Dander 06/22/2018 Medications meclizine (ANTIVERT) 25 mg tablet Take 1 tablet (25 mg total) by mouth 3 (three) times a day as needed for dizziness. 12 tablet 3 Active Additional Information Patient not taking.Reported on 02/21/2024 cyclobenzaprine (FLEXERIL) 10 MG tablet Take 10 mg by mouth 3 (three) times a day as needed. 4 Active lidocaine-hydro cortisone (LIDAMANTLE HC) 3-0.5 % Crea Apply topically 3 (three) times a day. 85 g 5 Active polyethylene glycol (MIRALAX) 17 gram packet Take 17 g by mouth daily. 20 packet 5 Active Active Problems No known active problems Encounters Date Type Department Care Team Description 07/26/2025 7:08 PM EDT - 07/26/2025 9:30 PM EDT Emergency [facility] [address] [place] [address] Discharge Disposition: Home or Self Care from Last 3 Months Immunizations Immunization Administration Dates Next Due Tdap 07/24/2020 Social History Tobacco Use Types Packs/Day Years Used Date Smoking Tobacco: Never Smokeless Tobacco: Never Alcohol Use Standard Drinks/Week Comments Never 0 (1 standard drink = 0.6 oz pur e alcohol) some Education Answer Date Recorded Are you interested in more education? Not on mckenzie e 02/25/2023 Are you concerned about learning? Not on file 02/25/2023 No 02/25/2023 No 02/25/2023 Food Answer Date Recorded Within the past 6 months we worried whether our food would run out before we got money to buy more. Never True 04/30/2025 Within the past 6 months the food we bought just didn't last and we didn't have enough money to get more. Never True Residential Stability Answer Date Recor ded What is your housing situation today? I have nicky sing 04/30/2025 How many times have you move d in the past 12 months? Zero (I did not move) 04/30/2025 Paying for Meds Answer Date Recorded Do you have trouble paying for medicines? No 04/30/2025 Paying Utility Bills Answer Date Record ed Do you have trouble paying your heating or elect ricity bill? No 04/30/2025 Transportation Answer Date Recorded Has the lack of transportati on kept you from medical appointments or from getting medications? No 04/30/2025 Digital Access Answer Date Recorded No 04/30/2025 Yes 04/30/2025 Do you have reliable internet access at home? Ye s 04/30/2025 Do you have a device (e.g., phone, tablet, computer) with a working camera? Yes 04/30/2025 Intimate Partner Violence Answer Date R ecorded Are you denied basic needs s uch as food, clothing, or medical care? No 07/26/2025 In the past 12 months have y ou been in a relationship with a person who hurts, threatens, or tries to control you? No 07/26/2025 Are you denied basic needs s uch as food, clothing, or medical care? No 07/26/2025 In the past 12 months have y ou been in a relationship with a person who hurts, threatens, or tries to control you? No 07/26/2025 Comments No Sex and Gender Information Value Date Recorded Sex Assigned at Female 11/27/2017 1:36 PM EST Legal Sex Female 8:53 PM EDT Gender Identity Female 11/27/2017 1:36 PM EST Sexual Orientation Straight 11/27/2017 1: 36 PM EST Last Filed Vital Signs Vital Sign Reading Time Taken Comments Blood Pressure 149/83 07/26/2025 7:52 PM EDT Pulse 62 07/26/2025 7:52 PM EDT Temperature 35.9 C (96.6 F) 07/26/2025 7:52 PM EDT Respiratory Rate 16 07/26/2025 7:52 PM EDT Oxygen Saturation 100% 07/26/2025 7:52 PM EDT Inhaled Oxygen Concentration - - Weight 68 kg (150 lb) 07/26/2025 3:43 PM EDT Height 160 cm (5' 3 ) 07/26/2025 3:43 PM EDT Body Mass Index 26.57 07/26/2025 3:43 PM EDT Plan of Treatment Health Maintenance Due Date Last Done Comments DEPRESSION SCREENING 2007 HEPATITIS C SCREENING 2013 HIV ONE-TIME SCREENING (18-6 5 YEARS) 2013 PAP SMEAR 01/17/2016 INFLUENZA VACCINE (#1) 2025 08/24/2019 COVID-19 VACCINE (2024-2 6 season) 2025 07/21/2021, 06/30/2021 Adult Td,Tdap Booster 07/24/2030 07/24/2020 , 08/24/2019 SMOKING STATUS SCREENING (On ce After 26 Yrs) Completed 07/26/2025 HEPATITIS A VACCINES Aged Out No long er eligible based on patient's age to complete this topic HIB VACCINES Aged Out No longer eligi ble based on patient's age to complete this topic IPV VACCINES Aged Out No longer eligi ble based on patient's age to complete this topic MENINGOCOCCAL VACCINES (ACWY) Aged Out No longer eligible based on patient's age to complete this topic MENINGOCOCCAL VACCINES (B) Aged Out N o longer eligible based on patient's age to complete this topic PNEUMOCOCCAL VACCINES (0-49 years) Aged Out No longer eligible b ased on patient's age to complete this topic Medical Devices Not on file Procedures Procedure Name Priority Date/Time Associated Diagnosis Comments CHLAMYDIA TRACHOMATIS AND NEISSERIA GONORRHOEAE NUCLEIC ACID DETECTION STAT 07/26/2025 8:47 PM EDT from Last 3 Months Results * Chlamydia Trachomatis and Neisseria Gonorrhoeae Nucleic Acid Detection (07/26/2025 8:47 PM EDT) CHLAMYDIA TRACHOMATIS Not Detected Not Detected [facility] NEISERIA GONORRHOEAE Not Detected Not Detected [facility] SPECIMEN TYPE VAGINAL [facility] Other (Anal) 07/26/2025 8:47 PM EDT 07/26/2025 9:48 PM EDT us Janny Maher PA-C LAB GENERAL ORDERABLES Yanira schmitt Result [facility] [address] [place] [address] from Last [address] [place] [address] [place] [address] [place] [address] [place] [address] [place] [address] [place] [place] [address] [place] [place] [address] [place] [address] [place] [address] [place] [address] [place] [address] [place] [place] [address] A[employer] Care Teams Medical Health Researcher Relationship Specialty Start Date End Date Kyle Zuniga PA [facility] [place] [address] PCP - General 12/15/21 Additional Source Comments The information contained in this document represents components of the legal health record. It is not the complete legal health record.[facility]
--- OUTSIDE RECORDS SUMMARY | 2025-09-12 13:40 | XMS_ITS | Clinical Summary ---
Author Organization [facility] Address [address] [place] [phone] Phone Care Team Providers Care After School Coordinator Name Role Phone Unavailable Primary Care Provider [...] of 3 - 19+ 3-dose series) 2014 HPV Vaccines (1 - 3-dose SCD M series) 2022 Influenza Vaccines (#1) 2025 COVID-19 Vaccine (1 - 2024-2 6 season) 2025 HIB Vaccines Aged Out No longer [...]
--- OUTSIDE RECORDS SUMMARY | 2025-09-12 13:40 | XMS_ITS | Encounter Summary ---
Author Organization [facility] Address [address] [place] [phone] Phone Care Team Providers Care Commercial Property Administrator Name Role Phone Renetta Hogue MD Primary Care Provider + Kyle Zuniga Primary Care Provider + Encounter Details Date Type Department Care Team (Late st Contact Info) Description 06/23/2018 Ancillary Orders Virtual Department [address] [place] [address] Jackie Mckeon MD, PhD [address] [place] [address] [email or web address] Pelvic pain Social History Tobacco Use Types [...] documented as of this encounter Care Teams Commercial Property Administrator Relationship Specialty Start Date End Date Renetta Hogue MD [address] [place] [phone] PCP - General Pediatrics 09/11/17 12/14/21 Kyle Zuniga PA [address] [place] [id number] PCP - General 12/15/21 documented as of this encounter Additional Source Comments The information contained in this document represents components of the legal health record. It is not the complete legal health record.[facility]
== END 2025-09-12 11:50 | disposition home or self-care (01) ==
LOC: HO.HMCH 10:58
PROVIDERS: PCP Physician Assistant; Visit Provider Physician Assistant
DX: F32.0 Major depressive disorder, single episode, mild (principal); Z86.19 Personal history of other infectious and parasitic diseases; Z23 Encounter for immunization

== ENCOUNTER 2025-09-12 10:57 | Outpatient (REF) | payer OTHER, SELFPAY ==
[2025-09-12 13:23] LABS: Syphilis Screen Reactive (Nonreactive)
[2025-09-19 15:09] LABS: T.Pallidum Particle Agg Test Reactive (Nonreactive)
== END 2025-09-12 10:58 | disposition home or self-care (01) ==
LOC: HO.LAB 10:57
PROVIDERS: PCP Physician Assistant; Visit Provider Physician Assistant
DX: F32.0 Major depressive disorder, single episode, mild (principal); B00.9 Herpesviral infection, unspecified; Z23 Encounter for immunization; Z86.19 Personal history of other infectious and parasitic diseases; Z11.3 Encounter for screening for infections with a predominantly sexual mode of transmission
CPT/HCPCS: 36415; 86592; 86780; 90471; 90656; 96127; 99212